=== PATIENT | female | born 1940 | race Caucasian/White ===

== ENCOUNTER → 2017-03-17 10:17 | Outpatient (CLI) | payer MEDICARE, SELFPAY ==
[2017-03-17 10:21] VITALS: BP 171/70; PULSE 60; RESP 16; TEMP 36.6; O2SAT 99; BMI 29.1
[2017-03-17 10:35] LABS: Hematocrit 30.5 % (37-47); Hemoglobin 9.5 g/dl (12.0-15.0)
== END ==
PROVIDERS: Family Provider Family Medicine; PCP Family Medicine; Visit Provider Internal Medicine Nephrology
DX: N18.3 Chronic kidney disease, stage 3 (moderate) (principal); D63.1 Anemia in chronic kidney disease
CPT/HCPCS: 36415; 85014; 85018; 96372; J0885

== ENCOUNTER → 2017-03-31 10:28 | Outpatient (CLI) | payer MEDICARE, SELFPAY ==
[2017-03-31 10:46] VITALS: BP 105/62; PULSE 59; RESP 18; TEMP 36.2; O2SAT 97; BMI 28.3
[2017-03-31 10:58] LABS: Hematocrit 30.1 % (37-47); Hemoglobin 9.6 g/dl (12.0-15.0)
[2017-03-31 11:09] LABS: Albumin, Serum 3.4 g/dL (3.2-5.0); BUN 43 mg/dL (7-18); BUN/Creat Ratio 27.2 RATIO (10-20); Calcium,Total 10.2 mg/dL (8.5-10.1); Chloride 102 mmol/L (98-107); Creatinine, Serum 1.58 mg/dL (0.55-1.02); EST Glomerular Filtration Rate 34 mL/min (>60); Est Glom Filt Rate - Afr Amer 41 mL/min (>60); Estimated Creatinine Clearance 27.26 ml/min; Glucose 97 mg/dL (74-106); Phosphorus 3.2 mg/dL (2.5-4.9); Potassium 4.4 mmol/L (3.5-5.1); Sodium Level 136 mmol/L (136-145)
== END ==
PROVIDERS: Family Provider Family Medicine; PCP Family Medicine; Visit Provider Internal Medicine Nephrology
DX: N18.3 Chronic kidney disease, stage 3 (moderate) (principal); D63.1 Anemia in chronic kidney disease
CPT/HCPCS: 80069; 85014; 85018; 96372; J0885

== ENCOUNTER → 2017-04-14 10:20 | Outpatient (CLI) | payer MEDICARE, SELFPAY ==
[2017-04-14 10:28] VITALS: BP 156/68; PULSE 56; RESP 16; TEMP 37.1; O2SAT 100; BMI 28.2
[2017-04-14 10:57] LABS: Hematocrit 30.1 % (37-47); Hemoglobin 9.4 g/dl (12.0-15.0)
== END ==
PROVIDERS: Family Provider Family Medicine; PCP Family Medicine; Visit Provider Internal Medicine Nephrology
DX: N18.3 Chronic kidney disease, stage 3 (moderate) (principal); D63.1 Anemia in chronic kidney disease
CPT/HCPCS: 36415; 85014; 85018; 96372; J0885

== ENCOUNTER → 2017-04-28 10:20 | Outpatient (CLI) | payer MEDICARE, SELFPAY ==
[2017-04-28 10:38] VITALS: BP 138/74; PULSE 55; RESP 18; TEMP 36.4; O2SAT 99; BMI 28.3
[2017-04-28 10:55] LABS: Hematocrit 31.5 % (37-47); Hemoglobin 9.8 g/dl (12.0-15.0)
[2017-04-28 11:07] LABS: Albumin, Serum 3.5 g/dL (3.2-5.0); BUN 38 mg/dL (7-18); BUN/Creat Ratio 23.6 RATIO (10-20); Calcium,Total 9.8 mg/dL (8.5-10.1); Chloride 106 mmol/L (98-107); Creatinine, Serum 1.61 mg/dL (0.55-1.02); EST Glomerular Filtration Rate 33 mL/min (>60); Est Glom Filt Rate - Afr Amer 40 mL/min (>60); Estimated Creatinine Clearance 26.75 ml/min; Ferritin 240 ng/mL (8-252); Glucose 91 mg/dL (74-106); Iron 51 ug/dL (50-170); Iron Binding Capacity,Total 214 ug/dL (250-450); PERCENT IRON SATURATION 23.8 % (15.0-55.0); Phosphorus 2.8 mg/dL (2.5-4.9); Potassium 4.2 mmol/L (3.5-5.1); Sodium Level 140 mmol/L (136-145)
== END ==
PROVIDERS: Family Provider Family Medicine; PCP Family Medicine; Visit Provider Internal Medicine Nephrology
DX: N18.3 Chronic kidney disease, stage 3 (moderate) (principal); D63.1 Anemia in chronic kidney disease
CPT/HCPCS: 36415; 80069; 82728; 83540; 83550; 85014; 85018; 96372; J0885

== ENCOUNTER → 2017-05-12 10:27 | Outpatient (CLI) | payer MEDICARE, SELFPAY ==
[2017-05-12 10:36] VITALS: BP 145/74; PULSE 52; RESP 16; TEMP 36.1; BMI 28.7
[2017-05-12 10:54] LABS: Hematocrit 31.1 % (37-47); Hemoglobin 9.7 g/dl (12.0-15.0)
== END ==
PROVIDERS: Family Provider Family Medicine; PCP Family Medicine; Visit Provider Internal Medicine Nephrology
DX: N18.3 Chronic kidney disease, stage 3 (moderate) (principal); D63.1 Anemia in chronic kidney disease
CPT/HCPCS: 36415; 85014; 85018; 96372; J0885

== ENCOUNTER → 2017-05-26 10:24 | Outpatient (CLI) | payer MEDICARE, SELFPAY ==
[2017-05-26 10:36] VITALS: BP 136/75; PULSE 56; RESP 16; TEMP 36.6; O2SAT 100; BMI 29.6
[2017-05-26 10:40] LABS: Hematocrit 32.1 % (37-47)
[2017-05-26 10:53] LABS: Albumin, Serum 3.5 g/dL (3.2-5.0); BUN 38 mg/dL (7-18); BUN/Creat Ratio 22.1 RATIO (10-20); Calcium,Total 9.7 mg/dL (8.5-10.1); Chloride 108 mmol/L (98-107); Creatinine, Serum 1.72 mg/dL (0.55-1.02); EST Glomerular Filtration Rate 31 mL/min (>60); Est Glom Filt Rate - Afr Amer 37 mL/min (>60); Estimated Creatinine Clearance 25.04 ml/min; Glucose 80 mg/dL (74-106); Phosphorus 2.3 mg/dL (2.5-4.9); Potassium 3.8 mmol/L (3.5-5.1); Sodium Level 142 mmol/L (136-145)
== END ==
PROVIDERS: Family Provider Family Medicine; PCP Family Medicine; Visit Provider Internal Medicine Nephrology
DX: N18.3 Chronic kidney disease, stage 3 (moderate) (principal); D63.1 Anemia in chronic kidney disease
CPT/HCPCS: 36415; 80069; 85014; 85018; 96372; J0885

== ENCOUNTER → 2017-06-09 10:27 | Outpatient (CLI) | payer MEDICARE, SELFPAY ==
[2017-06-09 10:52] LABS: Hematocrit 30.9 % (37-47); Hemoglobin 9.9 g/dl (12.0-15.0)
[2017-06-09 11:00] VITALS: BP 144/63; PULSE 44; RESP 18; TEMP 36.4; BMI 28.7
== END ==
PROVIDERS: Family Provider Family Medicine; PCP Family Medicine; Visit Provider Internal Medicine Nephrology
DX: N18.3 Chronic kidney disease, stage 3 (moderate) (principal); D63.1 Anemia in chronic kidney disease
CPT/HCPCS: 85014; 85018; 96372; J0885

== ENCOUNTER → 2017-06-23 10:33 | Outpatient (CLI) | payer MEDICARE, SELFPAY ==
[2017-06-23 10:44] VITALS: BP 143/71; PULSE 52; RESP 16; TEMP 36.4; O2SAT 97; BMI 27.9
[2017-06-23 10:59] LABS: Hematocrit 31.4 % (37-47); Hemoglobin 9.9 g/dl (12.0-15.0)
[2017-06-23 11:08] LABS: Albumin, Serum 3.5 g/dL (3.2-5.0); BUN 43 mg/dL (7-18); BUN/Creat Ratio 28.1 RATIO (10-20); Calcium,Total 10.1 mg/dL (8.5-10.1); Chloride 105 mmol/L (98-107); Creatinine, Serum 1.53 mg/dL (0.55-1.02); EST Glomerular Filtration Rate 35 mL/min (>60); Est Glom Filt Rate - Afr Amer 42 mL/min (>60); Estimated Creatinine Clearance 28.15 ml/min; Glucose 99 mg/dL (74-106); Phosphorus 3.1 mg/dL (2.5-4.9); Potassium 3.8 mmol/L (3.5-5.1); Sodium Level 139 mmol/L (136-145)
== END ==
PROVIDERS: Family Provider Family Medicine; PCP Family Medicine; Visit Provider Internal Medicine Nephrology
DX: N18.3 Chronic kidney disease, stage 3 (moderate) (principal); D63.1 Anemia in chronic kidney disease
CPT/HCPCS: 36415; 80069; 85014; 85018; 96372; J0885

== ENCOUNTER → 2017-07-07 10:31 | Outpatient (CLI) | payer MEDICARE, SELFPAY ==
[2017-07-07 10:45] LABS: Hematocrit 31.9 % (37-47); Hemoglobin 10.1 g/dl (12.0-15.0)
== END ==
PROVIDERS: Family Provider Family Medicine; PCP Family Medicine; Visit Provider Internal Medicine Nephrology
DX: N18.3 Chronic kidney disease, stage 3 (moderate) (principal); D63.1 Anemia in chronic kidney disease
CPT/HCPCS: 36415; 85014; 85018

== ENCOUNTER → 2017-07-21 10:30 | Outpatient (CLI) | payer MEDICARE, SELFPAY ==
--- NOTE | 2017-07-21 10:30 | DT_ITS ---
This patient was seen during an EMR downtime July 19, 2017 - July 26, 2017. This patient may have a combination of paper and electronic documentation or all paper documentation. All documentation is viewable within the e-chart portion of [employer] for each patient visit.
[2017-07-27 06:50] LABS: Hemoglobin 9.9 g/dl (12.0-15.0)
[2017-07-28 10:28] LABS: BUN 49 mg/dL (7-18); BUN/Creat Ratio 31.2 RATIO (10-20); Creatinine, Serum 1.57 mg/dL (0.55-1.02); EST Glomerular Filtration Rate 34 mL/min (>60); Est Glom Filt Rate - Afr Amer 41 mL/min (>60); Glucose 71 mg/dL (74-106)
[2017-07-28 10:30] LABS: Albumin, Serum 3.5 g/dL (3.2-5.0); Calcium,Total 10.2 mg/dL (8.5-10.1); Chloride 106 mmol/L (98-107); Phosphorus 3.5 mg/dL (2.5-4.9); Potassium 4.5 mmol/L (3.5-5.1); Sodium Level 141 mmol/L (136-145)
[2017-07-28 10:31] LABS: Ferritin 246 ng/mL (8-252); Iron Binding Capacity,Total 209 ug/dL (250-450)
== END ==
PROVIDERS: Family Provider Family Medicine; PCP Family Medicine; Visit Provider Internal Medicine Nephrology
DX: N18.3 Chronic kidney disease, stage 3 (moderate) (principal); D63.1 Anemia in chronic kidney disease
CPT/HCPCS: 36415; 80069; 82728; 83550; 85014; 85018; 96372; J0885

== ENCOUNTER → 2017-08-04 10:33 | Outpatient (CLI) | payer MEDICARE, SELFPAY ==
[2017-08-04 10:48] LABS: Hematocrit 30.4 % (37-47); Hemoglobin 9.6 g/dl (12.0-15.0)
[2017-08-04 11:05] VITALS: BP 126/61; PULSE 53; RESP 18; TEMP 36.6; O2SAT 100; BMI 27.7
== END ==
PROVIDERS: Family Provider Family Medicine; PCP Family Medicine; Visit Provider Internal Medicine Nephrology
DX: N18.3 Chronic kidney disease, stage 3 (moderate) (principal); D63.1 Anemia in chronic kidney disease
CPT/HCPCS: 36415; 85014; 85018; 96372; J0885

== ENCOUNTER → 2017-08-19 10:28 | Outpatient (CLI) | payer MEDICARE, SELFPAY ==
[2017-08-19 10:58] LABS: Hematocrit 29.9 % (37-47); Hemoglobin 9.6 g/dl (12.0-15.0)
[2017-08-19 11:12] LABS: Albumin, Serum 3.4 g/dL (3.2-5.0); BUN 58 mg/dL (7-18); BUN/Creat Ratio 33.1 RATIO (10-20); Calcium,Total 9.9 mg/dL (8.5-10.1); Chloride 107 mmol/L (98-107); Creatinine, Serum 1.75 mg/dL (0.55-1.02); EST Glomerular Filtration Rate 30 mL/min (>60); Est Glom Filt Rate - Afr Amer 36 mL/min (>60); Glucose 81 mg/dL (74-106); Phosphorus 3.2 mg/dL (2.5-4.9); Sodium Level 140 mmol/L (136-145)
[2017-08-19 11:13] VITALS: BP 113/53; PULSE 47; RESP 16; TEMP 36.2; O2SAT 99; BMI 28.6
== END ==
PROVIDERS: Family Provider Family Medicine; PCP Family Medicine; Visit Provider Internal Medicine Nephrology
DX: N18.3 Chronic kidney disease, stage 3 (moderate) (principal); D63.1 Anemia in chronic kidney disease
CPT/HCPCS: 36415; 80069; 85014; 85018; 96372; J0885

== ENCOUNTER → 2017-09-01 10:30 | Outpatient (CLI) | payer MEDICARE, SELFPAY ==
[2017-09-01 11:08] LABS: Hematocrit 30.6 % (37-47); Hemoglobin 9.9 g/dl (12.0-15.0)
== END ==
PROVIDERS: Family Provider Family Medicine; PCP Family Medicine; Visit Provider Internal Medicine Nephrology
DX: N18.3 Chronic kidney disease, stage 3 (moderate) (principal); D63.1 Anemia in chronic kidney disease
CPT/HCPCS: 85014; 85018; 96372; J0885

== ENCOUNTER → 2017-09-15 10:33 | Outpatient (CLI) | payer MEDICARE, SELFPAY ==
[2017-09-15 10:55] LABS: Hematocrit 31.3 % (37-47); Hemoglobin 9.8 g/dl (12.0-15.0)
[2017-09-15 11:10] LABS: Albumin, Serum 3.3 g/dL (3.2-5.0); BUN 44 mg/dL (7-18); BUN/Creat Ratio 24.6 RATIO (10-20); Chloride 104 mmol/L (98-107); Creatinine, Serum 1.79 mg/dL (0.55-1.02); EST Glomerular Filtration Rate 29 mL/min (>60); Est Glom Filt Rate - Afr Amer 35 mL/min (>60); Glucose 91 mg/dL (74-106); Phosphorus 3.2 mg/dL (2.5-4.9); Potassium 4.3 mmol/L (3.5-5.1); Sodium Level 140 mmol/L (136-145)
[2017-09-15 11:20] VITALS: BP 140/60; PULSE 52; RESP 16; TEMP 36.4; O2SAT 98; BMI 28.6
== END ==
PROVIDERS: Family Provider Family Medicine; PCP Family Medicine; Visit Provider Internal Medicine Nephrology
DX: N18.3 Chronic kidney disease, stage 3 (moderate) (principal); D63.1 Anemia in chronic kidney disease
CPT/HCPCS: 36415; 80069; 85014; 85018; 96372; J0885

== ENCOUNTER → 2017-09-29 10:26 | Outpatient (CLI) | payer MEDICARE, SELFPAY ==
[2017-09-29 10:48] LABS: Hematocrit 30.3 % (37-47); Hemoglobin 9.7 g/dl (12.0-15.0)
[2017-09-29 10:52] VITALS: BP 143/69; PULSE 50; RESP 18; O2SAT 98; BMI 28.6
== END ==
PROVIDERS: Family Provider Family Medicine; PCP Family Medicine; Visit Provider Internal Medicine Nephrology
DX: N18.3 Chronic kidney disease, stage 3 (moderate) (principal); D63.1 Anemia in chronic kidney disease
CPT/HCPCS: 36415; 85014; 85018; 96372; J0885

== ENCOUNTER → 2017-10-13 10:32 | Outpatient (CLI) | payer MEDICARE, SELFPAY ==
[2017-10-13 11:00] LABS: Hematocrit 32.1 % (37-47)
[2017-10-13 11:13] LABS: Albumin, Serum 3.3 g/dL (3.2-5.0); BUN 57 mg/dL (7-18); BUN/Creat Ratio 31.5 RATIO (10-20); Chloride 109 mmol/L (98-107); Creatinine, Serum 1.81 mg/dL (0.55-1.02); EST Glomerular Filtration Rate 29 mL/min (>60); Est Glom Filt Rate - Afr Amer 35 mL/min (>60); Glucose 81 mg/dL (74-106); Phosphorus 3.5 mg/dL (2.5-4.9); Potassium 4.2 mmol/L (3.5-5.1); Sodium Level 142 mmol/L (136-145)
[2017-10-13 11:55] VITALS: BP 141/58; PULSE 50; RESP 16; TEMP 36.4; O2SAT 99
== END ==
PROVIDERS: Family Provider Family Medicine; PCP Family Medicine; Visit Provider Internal Medicine Nephrology
DX: N18.3 Chronic kidney disease, stage 3 (moderate) (principal); D63.1 Anemia in chronic kidney disease
CPT/HCPCS: 36415; 80069; 85014; 85018; 96372; J0885; A4216

== ENCOUNTER → 2017-10-27 10:17 | Outpatient (CLI) | payer MEDICARE, SELFPAY ==
[2017-10-27 11:06] LABS: Albumin, Serum 3.4 g/dL (3.2-5.0); BUN 55 mg/dL (7-18); BUN/Creat Ratio 33.1 RATIO (10-20); Calcium,Total 10.2 mg/dL (8.5-10.1); Chloride 106 mmol/L (98-107); Creatinine, Serum 1.66 mg/dL (0.55-1.02); EST Glomerular Filtration Rate 32 mL/min (>60); Est Glom Filt Rate - Afr Amer 39 mL/min (>60); Glucose 83 mg/dL (74-106); Phosphorus 3.6 mg/dL (2.5-4.9); Potassium 4.5 mmol/L (3.5-5.1); Sodium Level 140 mmol/L (136-145)
[2017-10-27 11:08] LABS: Hematocrit 32.7 % (37-47); Mean Corp Hgb Conc 30.6 g/gl (32-36); Mean Corpuscular Hgb 29.6 pg (27.0-32.0); Mean Corpuscular Volume 96.7 fL (81-99); Mean Platelet Vol. 10.7 fl (6.2-12.0); Platelet Count 166 K/mm3 (150-450); RBC Distribution Width CV 17.1 % (11.6-14.6); RBC Distribution Width SD 60.5 fl (35.1-43.9); Red Blood Count 3.38 M/mm3 (4.2-5.4); White Blood Count 5.2 K/mm3 (4.4-11.0)
[2017-10-27 11:09] LABS: Scan Indicated on CBC? Y/N NO
[2017-10-27 11:55] VITALS: BP 170/67; PULSE 52; RESP 16; TEMP 36.1; O2SAT 100
[2017-10-27 12:29] LABS: Protein, Urine (Random) < 6.0 mg/dL (<11.9)
[2017-10-27 14:50] LABS: Vitamin D,25 Hydroxy 28.4 ng/mL (29.95-100.01)
== END ==
PROVIDERS: Family Provider Family Medicine; PCP Family Medicine; Visit Provider Internal Medicine Nephrology
DX: N18.3 Chronic kidney disease, stage 3 (moderate) (principal); D63.1 Anemia in chronic kidney disease
CPT/HCPCS: 36415; 80069; 82306; 82570; 84156; 85027; 96372; J0885

== ENCOUNTER → 2017-11-10 10:28 | Outpatient (CLI) | payer MEDICARE, SELFPAY ==
[2017-11-10 10:44] LABS: Hematocrit 31.2 % (37-47); Hemoglobin 9.8 g/dl (12.0-15.0)
[2017-11-10 11:00] LABS: Albumin, Serum 3.3 g/dL (3.2-5.0); BUN 41 mg/dL (7-18); BUN/Creat Ratio 27.2 RATIO (10-20); Calcium,Total 10.3 mg/dL (8.5-10.1); Chloride 102 mmol/L (98-107); Creatinine, Serum 1.51 mg/dL (0.55-1.02); EST Glomerular Filtration Rate 36 mL/min (>60); Est Glom Filt Rate - Afr Amer 43 mL/min (>60); Ferritin 252 ng/mL (8-252); Glucose 114 mg/dL (74-106); Iron 24 ug/dL (50-170); Iron Binding Capacity,Total 171 ug/dL (250-450); Phosphorus 3.2 mg/dL (2.5-4.9); Sodium Level 138 mmol/L (136-145)
[2017-11-10 11:03] VITALS: BP 125/56; PULSE 58; RESP 18; TEMP 36.7; O2SAT 100; BMI 28.3
== END ==
PROVIDERS: Family Provider Family Medicine; PCP Family Medicine; Visit Provider Internal Medicine Nephrology
DX: N18.3 Chronic kidney disease, stage 3 (moderate) (principal); D63.1 Anemia in chronic kidney disease
CPT/HCPCS: 36415; 80069; 82728; 83540; 83550; 85014; 85018; 96372; J0885

== ENCOUNTER → 2017-11-24 09:59 | Outpatient (CLI) | payer MEDICARE, SELFPAY ==
[2017-11-24 10:35] LABS: Hematocrit 31.7 % (37-47); Hemoglobin 10.1 g/dl (12.0-15.0)
== END ==
PROVIDERS: Family Provider Family Medicine; PCP Family Medicine; Referring Provider Internal Medicine Nephrology; Visit Provider Internal Medicine Nephrology
DX: N18.3 Chronic kidney disease, stage 3 (moderate) (principal); D63.1 Anemia in chronic kidney disease
CPT/HCPCS: 36415; 85014; 85018; J0885

== ENCOUNTER → 2017-12-08 10:30 | Outpatient (CLI) | payer MEDICARE, SELFPAY ==
[2017-12-08 10:37] VITALS: BP 150/71; PULSE 52; RESP 18; TEMP 35.9; O2SAT 100; BMI 28.3
[2017-12-08 10:54] LABS: Hematocrit 30.4 % (37-47); Hemoglobin 9.6 g/dl (12.0-15.0)
[2017-12-08 11:08] LABS: Albumin, Serum 3.2 g/dL (3.2-5.0); BUN 38 mg/dL (7-18); BUN/Creat Ratio 25.7 RATIO (10-20); Calcium,Total 9.8 mg/dL (8.5-10.1); Chloride 106 mmol/L (98-107); Creatinine, Serum 1.48 mg/dL (0.55-1.02); EST Glomerular Filtration Rate 36 mL/min (>60); Est Glom Filt Rate - Afr Amer 44 mL/min (>60); Glucose 83 mg/dL (74-106); Phosphorus 3.3 mg/dL (2.5-4.9); Potassium 3.8 mmol/L (3.5-5.1); Sodium Level 139 mmol/L (136-145)
== END ==
PROVIDERS: Family Provider Family Medicine; PCP Family Medicine; Referring Provider Internal Medicine Nephrology; Visit Provider Internal Medicine Nephrology
DX: N18.3 Chronic kidney disease, stage 3 (moderate) (principal); D63.1 Anemia in chronic kidney disease
CPT/HCPCS: 36415; 80069; 85014; 85018; 96372; J0885

== ENCOUNTER → 2017-12-22 10:22 | Outpatient (CLI) | payer MEDICARE, SELFPAY ==
[2017-12-22 10:43] LABS: Hematocrit 30.9 % (37-47); Hemoglobin 9.7 g/dl (12.0-15.0)
[2017-12-22 11:29] VITALS: BP 159/68; PULSE 48; RESP 16; O2SAT 98
== END ==
PROVIDERS: Family Provider Family Medicine; PCP Family Medicine; Referring Provider Internal Medicine Nephrology; Visit Provider Internal Medicine Nephrology
DX: N18.3 Chronic kidney disease, stage 3 (moderate) (principal); D63.1 Anemia in chronic kidney disease
CPT/HCPCS: 36415; 85014; 85018; 96372; J0885

== ENCOUNTER → 2018-01-05 10:25 | Outpatient (CLI) | payer MEDICARE, SELFPAY ==
[2018-01-05 10:54] LABS: Hematocrit 31.6 % (37-47); Hemoglobin 9.8 g/dl (12.0-15.0)
[2018-01-05 11:07] VITALS: BP 162/78; PULSE 45; RESP 18; TEMP 36.1; O2SAT 99
[2018-01-05 11:07] LABS: Albumin, Serum 3.3 g/dL (3.2-5.0); BUN 33 mg/dL (7-18); BUN/Creat Ratio 22.8 RATIO (10-20); Calcium,Total 10.3 mg/dL (8.5-10.1); Chloride 105 mmol/L (98-107); Creatinine, Serum 1.45 mg/dL (0.55-1.02); EST Glomerular Filtration Rate 37 mL/min (>60); Est Glom Filt Rate - Afr Amer 45 mL/min (>60); Glucose 85 mg/dL (74-106); Phosphorus 3.2 mg/dL (2.5-4.9); Potassium 4.1 mmol/L (3.5-5.1); Sodium Level 140 mmol/L (136-145)
== END ==
PROVIDERS: Family Provider Family Medicine; PCP Family Medicine; Referring Provider Internal Medicine Nephrology; Visit Provider Internal Medicine Nephrology
DX: N18.3 Chronic kidney disease, stage 3 (moderate) (principal); D63.1 Anemia in chronic kidney disease
CPT/HCPCS: 36415; 80069; 85014; 85018; 96372; J0885

== ENCOUNTER → 2018-01-19 10:16 | Outpatient (CLI) | payer MEDICARE, SELFPAY ==
[2018-01-19 10:39] LABS: Hematocrit 30.6 % (37-47); Hemoglobin 9.6 g/dl (12.0-15.0)
[2018-01-19 10:57] LABS: Ferritin 251 ng/mL (8-252); Iron 53 ug/dL (50-170); Iron Binding Capacity,Total 195 ug/dL (250-450); PERCENT IRON SATURATION 27.2 % (15.0-55.0)
[2018-01-19 11:16] VITALS: BP 137/69; PULSE 52; RESP 16; TEMP 36.7
== END ==
PROVIDERS: Family Provider Family Medicine; PCP Family Medicine; Referring Provider Internal Medicine Nephrology; Visit Provider Internal Medicine Nephrology
DX: N18.3 Chronic kidney disease, stage 3 (moderate) (principal); D63.1 Anemia in chronic kidney disease
CPT/HCPCS: 36415; 82728; 83540; 83550; 85014; 85018; 96372; J0885

== ENCOUNTER → 2018-02-02 10:25 | Outpatient (CLI) | payer MEDICARE, SELFPAY ==
[2018-02-02 10:52] LABS: Hematocrit 31.6 % (37-47); Hemoglobin 9.9 g/dl (12.0-15.0)
[2018-02-02 11:02] LABS: Albumin, Serum 3.4 g/dL (3.2-5.0); BUN 43 mg/dL (7-18); BUN/Creat Ratio 26.9 RATIO (10-20); Calcium,Total 9.9 mg/dL (8.5-10.1); Chloride 107 mmol/L (98-107); EST Glomerular Filtration Rate 33 mL/min (>60); Est Glom Filt Rate - Afr Amer 40 mL/min (>60); Glucose 102 mg/dL (74-106); Phosphorus 3.1 mg/dL (2.5-4.9); Potassium 4.4 mmol/L (3.5-5.1); Sodium Level 140 mmol/L (136-145)
[2018-02-02 11:09] VITALS: BP 127/60; PULSE 50; RESP 15; TEMP 36.8; O2SAT 100; BMI 27.4
--- OUTSIDE RECORDS SUMMARY | 2018-05-06 14:12 | XMS RPT_ITS ---
:1940 Author Organization OHIP Support Name Relationship Address Phone BRITTNEY LEDBETTERHWIYANNA Unavailable [address] + [place] [address] ANA KWAN Unavailable [address] + [place] [address] R Unavailable Unavailable Unavailable CIRT, TRISHWILL Unavailable [address] + [place] [address] ANA KWAN Unavailable [address] + [place] [address] R Unavailable Unavailable Unavailable ANA KWAN Unavailable Unavailable + ANA KWAN Unavailable [address] + [place] [address] ANA KWAN Unavailable [address] + [place] [address] MARIAHT, TRISHWILL Unavailable [address] + [place] [address] ANA KWAN Unavailable [address] + [place] [address] R Unavailable Unavailable Unavailable ANA KWAN Unavailable Unavailable + CIRT, TRISHWILL Unavailable [address] + [place] [address] ANA KWAN Unavailable [address] + [place] [address] R Unavailable Unavailable Unavailable CIRT, TRISHWILL Unavailable [address] [address] + [place] [address] ANA KWAN Unavailable [address] + [place] [address] R Unavailable Unavailable Unavailable CIRT, TRISHWILL Unavailable [address] + [place] [address] ANA KWAN Unavailable [address] + [place] [address] R Unavailable Unavailable Unavailable ANA KWAN Unavailable Unavailable + CIRT, BRITTNEYHWILL Unavailable [address] + [place] [address] ANA KWAN Unavailable [address] + [place] [address] R Unavailable Unavailable Unavailable CIRT, TRISHWIYANNA Unavailable [address] + [place] [address] ANA KWAN Unavailable [address] + [place] [address] R Unavailable Unavailable Unavailable CIRT, BRITTNEYHWIYANNA Unavailable [address] + [place] [address] ANA KWAN Unavailable [address] + [place] [address] R Unavailable Unavailable Unavailable CIRT, BRITTNEYHWIYANNA Unavailable [address] [facility] [facility] + [place] [address] ANA KWAN Unavailable [address] + [place] [address] R Unavailable Unavailable Unavailable CIRT, TRISHWIYANNA Unavailable [address] + [place] [address] ANA KWAN Unavailable [address] + [place] [address] R Unavailable Unavailable Unavailable CIRT, TRISHWILL Unavailable [address] [facility] + [place] [address] ANA KWAN Unavailable [address] + [place] [address] R Unavailable Unavailable Unavailable CIRT, TRISHWILL Unavailable [address] + [place] [address] ANA KWAN Unavailable [address] + [place] [address] R Unavailable Unavailable Unavailable CIRT, TRISHWILL Unavailable [address] + [place] [address] ANA KWAN Unavailable [address] + [place] [address] R Unavailable Unavailable Unavailable CIRT, TRISHWILL Unavailable [address] + [place] [address] ANA KWAN Unavailable [address] + [place] [address] R Unavailable Unavailable Unavailable CIRT, BRITTNEYHWILL Unavailable [address] + [place] [address] ANA KWAN Unavailable [address] + [place] [address] R Unavailable Unavailable Unavailable CIRT, BRITTNEYHWILL Unavailable [address] + [place] [address] ANA KAWN Unavailable [address] + [place] [address] R Unavailable Unavailable Unavailable CIRT, BRITTNEYHWILL Unavailable [address] + [place] [address] ANA KWAN Unavailable [address] + [place] [address] R Unavailable Unavailable Unavailable CIRT, LETITIAWIYANNA Unavailable [address] + [place] [address] ANA KWAN Unavailable [address] + [place] [address] R Unavailable Unavailable Unavailable ANA KWAN Unavailable Unavailable + CIRT, PATTI Unavailable [address] + [place] [address] ANA KWAN Unavailable [address] + [place] [address] R Unavailable Unavailable Unavailable CIRT, BRITTNEYHWILL Unavailable [address] + [place] [address] ANA KWAN Unavailable [address] + [place] [address] R Unavailable Unavailable Unavailable CIRT, TRISHWILL Unavailable [address] + [place] [address] ANA KWAN Unavailable [address] + [place] [address] R Unavailable Unavailable Unavailable CIRT, TRISHWILL Unavailable [address] + [place] [address] ANA KWAN Unavailable [address] + [place] [address] R Unavailable Unavailable Unavailable ANA KWAN Unavailable [address] + [place] [address] ANA KWAN Unavailable [address] + [place] [address] ANA KWAN Unavailable [address] + [place] [address] REJIANA COLLAZO Unavailable [address] + [place] [address] CIRT, TRISHWILL Unavailable [address] + [place] [address] ANA KWAN Unavailable [address] + [place] [address] R Unavailable Unavailable Unavailable CIRT, BRITTNEYHWILL Unavailable [address] + [place] [address] ANA KWAN Unavailable [address] + [place] [address] R Unavailable Unavailable Unavailable ANA KWAN Unavailable [address] + [place] [address] ANA KWAN Unavailable [address] + [place] [address] MARIAHT, TRISHWILL Unavailable [address] + [place] [address] ANA KWAN Unavailable [address] + [place] [address] R Unavailable Unavailable Unavailable Care Team Providers Name Role Phone Yazmin, Jayaprakash Attending Unavailable AISHWARYA REYES Primary Care Unavailable Yazmin, Jayaprakash Attending Unavailable Yazmin, Jayaprakash Referring Unavailable ERIC, AISHWARYA Primary Care Unavailable Yazmin, Jayaprakash Attending Unavailable Yazmin, Jayaprakash Referring Unavailable AISHWARYA REYES Primary Care Unavailable Yazmin, Jayaprakash Attending Unavailable AISHWARYA REYES Referring Unavailable ERIC, AISHWARYA Primary Care Unavailable Yazmin, Jayaprakash Attending Unavailable Yazmin, Jayaprakash Referring Unavailable ERIC, AISHWARYA Primary Care Unavailable Yazmin, Jayaprakash Attending Unavailable Yazmin, Jayaprakash Referring Unavailable ERIC, AISHWARYA Primary Care Unavailable Yazmin, Jayaprakash Attending Unavailable Yazmin, Jayaprakash Referring Unavailable ERIC, AISHWARYA Primary Care Unavailable Yazmin, Jayaprakash Attending Unavailable Yazmin, Jayaprakash Referring Unavailable ERIC, AISHWARYA Primary Care Unavailable Yazmin, Jayaprakash Attending Unavailable Yazmin, Jayaprakash Referring Unavailable ERIC, AISHWARYA Primary Care Unavailable Yazmin, Jayaprakash Attending Unavailable Yazmin, Jayaprakash Referring Unavailable ERIC, AISHWARYA Primary Care Unavailable Yazmin, Jayaprakash Attending Unavailable Yazmin, Jayaprakash Referring Unavailable AISHWARYA REYES Primary Care Unavailable Yazmin, Jayaprakash Attending Unavailable Yazmin, Jayaprakash Referring Unavailable AISHWARYA REYES Primary Care Unavailable Yazmin, Jayaprakash Attending Unavailable Yazmin, Jayaprakash Referring Unavailable AISHWARYA REYES Primary Care Unavailable Yazmin, Jayaprakash Attending Unavailable Yazmin, Jayaprakash Referring Unavailable ERIC, AISHWARYA Primary Care Unavailable Yazmin, Jayaprakash Attending Unavailable Yazmin, Jayaprakash Referring Unavailable ERIC, AISHWARYA Primary Care Unavailable Yazmin, Jayaprakash Attending Unavailable Yazmin, Jayaprakash Referring Unavailable ERIC, AISHWARYA Primary Care Unavailable Yazmin, Jayaprakash Attending Unavailable Yazmin, Jayaprakash Referring Unavailable AISHWARYA REYES Primary Care Unavailable Yazmin, Jayaprakash Attending Unavailable Yazmin, Jayaprakash Referring Unavailable ERIC, AISHWARYA Primary Care Unavailable Yazmin, Jayaprakash Attending Unavailable Yazmin, Jayaprakash Referring Unavailable ERIC AISHWARYA Primary Care Unavailable Yazmin, Jayaprakash Attending Unavailable Yazmin, Jayaprakash Referring Unavailable ERIC AISHWARYA Primary Care Unavailable Yazmin, Jayaprakash Attending Unavailable Yazmin, Jayaprakash Referring Unavailable AISHWARYA REYES Primary Care Unavailable Yazmin, Jayaprakash Attending Unavailable Yazmin, Jayaprakash Referring Unavailable ERIC AISHWARYA Primary Care Unavailable Yazmin, Jayaprakash Attending Unavailable Yazmin, Jayaprakash Referring Unavailable REYES AISHWARYA Primary Care Unavailable Yazmin, Jayaprakash Attending Unavailable Yazmin, Jayaprakash Referring Unavailable AISHWARYA REYES Primary Care Unavailable Yazmin, Jayaprakash Attending Unavailable REYESAISHWARYA Primary Care Unavailable Yazmin, Jayaprakash Attending Unavailable Yazmin, Jayaprakash Referring Unavailable ERIC AISHWARYA Primary Care Unavailable AISHWARYA REYES MD Attending Unavailable AISHWARYA REYES MD Primary Care Unavailable YAZMIN MIN, DR. DARLENE Zavala Attending Unavailable AISHWARYA REYES MD Primary Care Unavailable AISHWARYA REYES MD Attending Unavailable AISHWARYA REYES MD Primary Care Unavailable AISHWARYA REYES MD Attending Unavailable AISHWARYA REYES MD Primary Care Unavailable Hank Maloney Attending Unavailable Hank Maloney Attending Unavailable Darci Clark Attending Unavailable Aishwarya Reyes Primary Care Unavailable Darci Clark Attending Unavailable Aishwarya Reyes Primary Care Unavailable Darci Clark Admitting Unavailable PROBLEMS PROBLEMS DATE TYPE CONDITION / ATTENDING STATUS SOURCE CODE 03/02/2018 Unknown D63.1 - Anemia Yazmin, Active Nellie in chronic [facility] kidney disease Hospital / D63.1(ICD-10) Repository 09/17/2017 Unknown N18.3 - Chronic Yazmin, Active Nellie kidney disease, [facility] stage 3 [facility] (moderate) / Repository N18.3(ICD-10) 06/21/2017 Admitting Unknown / Hank Maloney Active [facility] Medical diagnosis UNK(Unknown) Center [place] Repository PROCEDURES PROCEDURES No Procedure Records FoundRESULTS RESULTS HH, HEMOGLOBIN AND Collected: 03/02/2018 Status: F Source: [facility] 11[facility]08 [facility]POSIT[facility] TYPE CODE TESTS RESULT OUT OF RANGE REFERENCE UNITS LAB L100.1300 12.0-15.0 g/dl Low HGB 9.1 LAB L100.1400 37-47 % Low HCT 29.5 Performed By: #### L100.0600 #### [facility] [address] [place], [address] RENAL PROFILE Collected: 03/02/2018 Status: F Source: [facility] 11:08 AM [facility] REPOSITORY TYPE CODE TESTS RESULT OUT OF RANGE REFERENCE UNITS LAB L501.0100 74-106 mg/dL High GLU 121 Result Comment: Fasting Glucose result from 100 to 125 mg/dL suggests IMPAIRED HOMEOSTASIS per A.D.A. criteria. Please note revised GLUCOSE reference range effective 2017. LAB L501.1000 7-18 mg/dL High BUN 29 LAB L501.1100 0.55-1.02 mg/dL High CREAT,SERUM 1.45 Result Comment: The validity of the calculated GFR AND GFRAA in patients over 70 years has not been determined. Clinical correlation is essential. LAB L501.1110 >60 mL/min Low EST GFR 37 Result Comment: Non- GFR Calc LAB L501.1115 >60 mL/min Low EST GFR - AA 45 Result Comment: GFR Calc LAB L501.1300 10-20 RATIO Normal BUN/CRE 20.0 LAB L501.1800 3.2-5.0 g/dL Normal ALB 3.2 LAB L501.2200 8.5-10.1 mg/dL High CA 10.4 LAB L501.2300 2.5-4.9 mg/dL Normal PHOS 3.1 LAB L501.5300 136-145 mmol/L NA Normal 139 LAB L501.5600 3.5-5.1 mmol/L K Normal 4.1 LAB L501.5900 98-107 mmol/L CL Normal 104 LAB L501.6100 21.0-32.0 mmol/L Normal CO2 27.0 Performed By: #### L500.3600 #### [facility] [address] [place], [place], [address] HH, HEMOGLOBIN AND Collected: 02/16/2018 Status: F Source: [facility] 10:58 AM [facility] REPOSITORY TYPE CODE TESTS RESULT OUT OF RANGE REFERENCE UNITS LAB L100.1300 12.0-15.0 g/dl Low HGB 8.2 LAB L100.1400 37-47 % Low HCT 26.4 Performed By: #### L100.0600 #### [facility] [address] [place], [address] PTPN Observed: 02/11/2018 Status: UNK Source: [facility] 10:17 AM [facility] Physical Therapy Inpatient Treatment Note Medical Diagnosis: s/p left MARGA performed by Dr. Clark on 02/09/2018 Demographics: Age: 78Y Gender: Female Primary Language: Nigerien Preferred Language: Nigerien Rehabilitation Precautions/Restrictions: WBAT LLE SUBJECTIVE Patient Report: Pt/spouse amicable. She won't remember what you tell her two minutes from now. I'm always at home with her, and if not her sister is. Patient/Caregiver Goals: To go home Pain: Patient currently has pain. Patient reports a pain level of 3 out of 10. Interventions: Repositioned patient. Patient medicated. by nursing OBJECTIVE General Observation: Pt up in chair, spouse present during session. Completed extended session of transfers/gait/stair training w/ spouse education throughout, returned to sit in chair, call light nearby. Functional Activities After Today's Session: Transfers: Patient transferred sit to/from stand requiring stand by assistance. Patient used the following equipment: Arms of chair. Max cues for hand placement and WW safety. Pt/spouse educated on having pt stop and analyze her transfers vs just instructing her. Increased difficulty from lower chairs, heavy UE use, WW for support once upright. Cues for WW safety w/ transfers. Locomotion/Ambulation: Patient was stand by assist with gait/ambulation for 120 feet x2 . Patient requires the following assistive device(s): Rolling walker. Pt w/ improved WW placement and safety, some cues for safety w/ turns, no LOB. Antalgic gait, inconsistent WW advancement, cues for same. Stairs: Patient was contact guard assist of 1 person for Pt completed 5 steps up/down w/ bilateral handrails and cues for technique, CGA from spouse w/ clinician at SBA for safety. No LOB, difficulty w/ LLE SLS phase. . Patient used the following equipment: Bilateral Railing. Curb Negotiation: Not assessed. AM-PAC Basic Mobility: Turning Over in Bed: A little difficulty Sitting/Standing Chair with Arms: A little difficulty Lying on Back to Sitting on Side of Bed: A little difficulty [facility] PATIENT NAME: MAGGI KWAN [address] [facility] [address] Schultz MEDICAL REC #: [id number] [place] [address] ADMIT DATE: 02/09/18 SERVICE DATE: 02/11/18 Physical Therapy Progress Note ATTENDING PHY: Darci Clark DO Moving To/From Bed to Chair: A little help needed Walking in Hospital Room: A little help needed Climbing 3-5 Steps with Railing: A little help needed Raw Score = 18 , AM-PAC t-Scale Score = 43.63 and G-Code Modifier = CK Vital Signs: Vitals: Oxygen Saturation: 94 % Interventions: Gait Training: Pt/spouse education on discharge planning and role of PT in same. Multiple functional transfers w/ close SBA and cues. Gait w/ WW up to 120 feet and close SBA as noted. Stair training w/ spouse education/demonstration as noted. reviewed/simulated car transfers, reviewed sitting/standing HEP and recommendation for Home or OPPT for improved mobility, safety concerns for homegoing. Reinforcement w/ spouse on need for 24/7 assist at home. Pain Reassessment: No significant change in pain during session. Education: Education Provided: Precautions. Pain management. Plan of care. Functional transfers. Safety. Equipment. Gait. Home exercise/activity plan. Stair/curb/environmental barrier negotiation. Audience: Patient and significant other. Mode: Explanation. Demonstration. Printed material provided. Max cues/reinforcement for technique . Response: Verbalized understanding. Needs practice. Needs reinforcement. Poor recall from pt. ASSESSMENT Response to Visit: Good, pt demonstrating improved strength, balance and safety this date. Pt continues to require near constant cuing and supervision w/ all mobility tasks, spouse reports is able to assist (and has been assisting) 24/7 at home. Recommending Home w/ 24/7 family assist and Home PT at discharge. Activity/Participation Problem List and Goals: No updates at this time. Progress Toward Goals: TREATMENT GOAL REVIEW: 1. Complete 80 feet supv ww - Not Met: ongoing 2. Complete transfers supv - Not Met Ongoing 3. Complete verbalization of HEP indep - Not Met Ongoing 4. complete 3 steps with bilat rail and SBA - Not Met: Ongoing Time frame to achieve treatment goal(s): 2 weeks PLAN [facility] PATIENT NAME: MAGGI KWAN [address] [facility] [address] Schultz MEDICAL REC #: [id number] [place] [address] ADMIT DATE: 02/09/18 SERVICE DATE: 02/11/18 Physical Therapy Progress Note ATTENDING PHY: Darci Clark DO Treatment Frequency, Duration and Interventions: Physical Therapy is recommended for BID for three days Physical Therapy treatment is to include: Gait training, transfer training, balance, functional tasks, HEP, thera act, thera exercise, steps, education on home going safety/recommendations, educated on fall risk, education on mobility benefits, educate on ice management, educate on car transfer Recommended Physical Therapy Follow Up: Upon acute care discharge, the following is currently recommended: Home health care Physical Therapy. Recommended Equipment: Rolling walker. Recommended Consults: Development of Plan of Care: There was no change to plan of care today. If there are any questions regarding this service, please contact the Acute Therapy Department at extension [phone] Communication to Nursing: No updates at this time. Location of Patient at End of Therapy Session: In chair, call light within reach Services: Total Billed: 45 minutes (Timed: 45, Untimed: 0) 45.00 Timed: [43733] GAIT TRAIN EA 15 MIN 0.00 Untimed: [] PT Treatment- General ORDER Signed by: Josh Beltre, 02/11/2018 12:54:06 - CoSigned By: LAURA GARNER, PT 02/11/2018 12:57:39 PM [facility] PATIENT NAME: MAGGI KWAN [facility] [address] Schultz MEDICAL REC #: [id number] [place] [address] ADMIT DATE: 02/09/18 SERVICE DATE: 02/11/18 Physical Therapy Progress Note ATTENDING PHY: Darci Clark DO OTPN Observed: 02/11/2018 Status: UNK Source: [facility] 9:58 AM [facility] Occupational Therapy Inpatient Treatment Note Medical Diagnosis: s/p left MARGA performed by Dr. Clark on 02/09/2018 OCCUPATIONAL PROFILE AND HISTORY Demographics: Age: 78Y Gender: Female Primary Language: Nigerien Preferred Language: Nigerien Referring Service/Team: Orthopedics Rehabilitation Precautions/Restrictions: WBAT LLE Patient Report: I am confused Patient/Caregiver Goals: To go home Pain: Patient currently without complaints of pain. OBJECTIVE / OCCUPATIONAL PERFORMANCE General Observation: Pt in chair, keliban present. Agreeable to ADL Activities of Daily Living: Current Status Previous Status ADLs Feeding - Independent Grooming - Supervision Bathing-UE Supervision Supervision Bathing-LE Minimal assistance Minimal assistance Dressing-UE Supervision Supervision Dressing-LE Moderate assistance Moderate assistance Toileting - Minimal assistance AM-PAC Daily Activities: Putting On/Taking Off Lower Body Clothing: A lot of help needed Bathing:: A little help needed Toileting: A little help needed Putting On/Taking Off Upper Body Clothing: A little help needed Grooming: A little help needed Eating a Meal: No help needed Raw Score = 18 , AM-PAC t-Scale Score = 38.66and G-Code Modifier = CK Functional Mobility: Bed Mobility: Not assessed. Transfers: Patient transferred sit to/from stand requiring minimal assistance of 1 person. Patient used the following equipment: Arms of chair. Cues for proper techniques with fair-poor carryover. [facility] PATIENT NAME: MAGGI KWAN [address] [facility] [address] Schultz MEDICAL REC #: [id number] [place] [address] ADMIT DATE: 02/09/18 SERVICE DATE: 02/11/18 Occupational Therapy Progress Note ATTENDING PHY: Darci Clark DO Locomotion/Gait/Ambulation: Patient was minimal assist with gait/ambulation of 1 person for 5 feet . Patient requires the following assistive device(s): Rolling walker. Normal Interventions: Self Care/Home Management: UB/LB bathing/dressing, sitting balance/tolerance, standing balance/tolerance, functional mobility/transfers. Pain Reassessment: No significant change in pain during session. Education: Education Provided: Plan of care. Activities of daily living. Functional transfers. Audience: Patient and significant other. Mode: Demonstration. Explanation. Response: Needs practice. Needs reinforcement. ASSESSMENT Response to Visit: Pt tolerated sesison fairly. present and very involved in session, stated he will be able to help upon d/c. Pt seems to be confused this date and asked therapist for step by step commands when performing ADLs. Pt requires cues for proper techniques whem standing, with fair-poor carryover. Recommend home with 24 hr supervision. Will continue to work on self care next session. Activity/Participation Problem List and Goals: No updates at this time. Progress Toward Goals: TREATMENT GOAL REVIEW: 1. Pt supv self care tasks w/good use of AE/techs - Not Met: ongoing 2. Pt supv bed mobility and functional transfers w/no v/c for safety or precautions - Not Met ongoing 3. Pt supv household distance functional mobility w/safe use of ww - Not Met ongoing 4. Pt supv 5 mins min challenging standing balance demonstrating safe ability to right self when needed - Not Met ongoing 5. Pt recall hip precautions and demo good safety awareness during self care and mobility tasks 90% of the time w/min-->no v/c. - Not Met ongoing Time frame to achieve treatment goal(s): 2 weeks PLAN Treatment Frequency, Duration and Interventions: Occupational Therapy is recommended for 6x/week Occupational Therapy treatment is to include: Graded ADLs, AE/techs, graded therex, graded theract, pt/caregiver education, home management, cognition and saefty Recommended Occupational Therapy Follow Up: Upon acute care discharge, the following is currently recommended: Home exercise program. [facility] PATIENT NAME: REJIZAYMAGGI Schultz MEDICAL REC #: [id number] [place] [address] ADMIT DATE: 02/09/18 SERVICE DATE: 02/11/18 Occupational Therapy Progress Note ATTENDING PHY: Darci Clark DO Equipment Recommended: TBD Recommended Consults: None currently. Development of Plan of Care: Patient and family participated in plan of care development today. If there are any questions regarding this service, please contact the Acute Therapy Department at extension [phone] Communication to Nursing: No updates at this time. Location of Patient at End of Therapy Session: In chair, call light within reach Services: Total Billed: 25 minutes (Timed: 25, Untimed: 0) 25.00 Timed: [[id number]] ADL-HOME MANAGEMENT EA 15 MIN 0.00 Untimed: [] OT Treatment General ORDER Signed by: Liya Olson, 02/11/2018 10:03:22 - CoSigned By: CATY COX/Zac 02/11/2018 11:15:05 AM [facility] PATIENT NAME: ANIYAMAGGI HolmanW. MEDICAL REC #: [id number] [place] [address] ADMIT DATE: 02/09/18 SERVICE DATE: 02/11/18 Occupational Therapy Progress Note ATTENDING PHY: Darci Clark DO CBC Collected: 02/11/2018 Status: F Source: [facility] 5:02 AM [facility] REPOSITORY Order Comment: [place]: M TYPE CODE TESTS RESULT OUT OF RANGE REFERENCE UNITS LAB L200.83522 4.5-11.0 K/CUMM Normal WBC 8.8 LAB L200.02081 3.90-5.30 M/CU MM Low RBC 2.72 LAB L200.00858 11.5-15.5 G/DL Low HGB 8.3 LAB L200.98188 35.0-47.0 % Low HCT 26.5 LAB L200.76678 80.0-99.0 fl Normal MCV 97.4 LAB L200.84142 32.0-36.0 GM/DL Low MCHC 31.3 LAB L200.74392 11-14.5 High RDW 17.1 LAB L200.99279 9.4-12.4 Normal MPV 10.3 LAB L200.00967 150-450 K/CU MM Normal PLT 195 LAB L200.50396 Less than 1 % Normal NRBC 0.0 Performed By: #### L200.09829 #### [facility] [address] [place] [address] BMP Collected: 02/11/2018 Status: F Source: [facility] 5:02 AM [facility] REPOSITORY Order Comment: [place]: M TYPE CODE TESTS RESULT OUT OF RANGE REFERENCE UNITS LAB L500.66822 136-145 MMOL/L Normal NA 141 LAB L500.86863 3.5-5.1 MMOL/L Normal K 4.8 LAB L500.66916 98-107 MMOL/L High CL 112 LAB L500.30755 21-32 MMOL/L Normal CO2 21 LAB L500.15789 5-16 MMOL/L Normal AGAP 7 LAB L500.50389 70-100 MG/DL Normal GLU 96 Result Comment: 70-100- Normal Fasting; 100-125 Impaired Fasting; greater than 126 on more than one result- Diabetes. ADA guidelines. Results may be falsely elevated after the administration of Sulfapyridine. Results may be falsely depressed after the administration of Sulfasalazine. LAB L500.77615 7-26 MG/DL High BUN 56 LAB L500.34844 0.510-0.950 MG/DL High CREAT 2.120 Result Comment: Patients receiving either N-Acetylcysteine (NAC) or Metamizole prior to venipuncture, may have falsely depressed results. LAB L500.85661 15-24 High BUN/CREA 26 LAB L500.29624 8.5-10.1 MG/DL Normal CALCIUM TOTAL 8.7 Performed By: #### L500.58654, L500.46473 #### [facility] [address] [place] [address] GFR EST Collected: 02/11/2018 Status: F Source: [facility] 5:02 AM [facility] REPOSITORY Order Comment: [place]: TYPE CODE TESTS RESULT OUT OF RANGE REFERENCE UNITS LAB L500.66114 ML/MIN Normal IF non-AFR 23 AMER LAB L500.70510 ML/MIN Normal IF 27 AMER Performed By: #### L500.84507, L500.24996 #### [facility] [address] [place] [address] PTPN Observed: 02/10/2018 Status: UNK Source: [facility] 4:28 PM [facility] REPOSITORY Physical Therapy Inpatient Treatment Note Medical Diagnosis: s/p left MARGA performed by Dr. Clark on 02/09/2018 Demographics: Age: 78Y Gender: Female Primary Language: Nigerien Preferred Language: Nigerien Rehabilitation Precautions/Restrictions: WBAT LLE SUBJECTIVE Patient Report: Why are you keeping me Patient/Caregiver Goals: To go home Pain: Pain not assessed due to OBJECTIVE General Observation: Prior to PT entrance into room. RN and NURSE HEALTHCARE MANAGER approached PT about pt and pt agitated and upset about NURSE HEALTHCARE MANAGER and OT recommendation of SNF at this time. Upon completion pt supine in bed with dinner. Functional Activities After Today's Session: Transfers: Patient transferred sit to/from stand requiring contact guard assistance of 1 person. Patient used the following equipment: Arms of chair. CGA with verbal cues for hand placement. With transfers out of bed pt asking What am I doing, at bedside looks to the right side of the bed guiding patient to the answer. SBA with exit out bed with increase time to complete. Pt moving IV line and exiting bed with sheet around legs. Sitting EOB supv pt attempted to exit bed without ww in front of pt. Once ww in front of pt, pt initiates by pulling up on ww, verbal cues for hand placement on bed. Sit<>stand transfer with CGA. Transfer stand to sit in front of toilet, pt asking What am I doing when in front of toilet with pt reaching for grab bar and right arm of ww, verbal cues for middle of walker, CGA to complete eccentric control. Sit to stand with min assistance to initiate stand one second attempt. Transfer from sit to supine min assistance to lift bilat LE into bed. Locomotion/Ambulation: Patient was contact guard with gait/ambulation of 1 person for 20 feet x 2 . Patient requires the following assistive device(s): Rolling walker. Slow kelly, reciprocal gait pattern, narrow base of support, verbal cues for improper hand placement, wide turns, increase distance between pt and ww, forgetting ww with turning in front of bed, Stairs: Not assessed. Curb Negotiation: Not assessed. AM-[facility] Basic Mobility: [facility] PATIENT NAME: MAGGI KWAN [facility] MEDICAL REC #: [id number] [place] [address] ADMIT DATE: 02/09/18 SERVICE DATE: 02/10/18 Physical Therapy Progress Note ATTENDING URIEL: Darci Clark DO Turning Over in Bed: A little difficulty Sitting/Standing Chair with Arms: A little difficulty Lying on Back to Sitting on Side of Bed: A little difficulty Moving To/From Bed to Chair: A little help needed Walking in Hospital Room: A little help needed Climbing 3-5 Steps with Railing: A little help needed Raw Score = 18 , AM-PAC t-Scale Score = 43.63 and G-Code Modifier = CK Vital Signs: Not assessed. Interventions: Therapeutic Activities: Educated on PT role, educated on recommendation, educated on safety with homegoing, educated on PT process. bed mobility, transfers, gait Pain Reassessment: No pain at onset or during treatment, which does not warrant reassessment. Education: Learning Preference: Explanation, Demonstration Barriers to Learning: Cognitive limitations, Desire and motivation, Mobility Learning Needs: None., Bowel/bladder programs/training Education Provided: No education provided this session. ASSESSMENT Response to Visit: PT treatment session was initiated due to pt and pt upset with NURSE HEALTHCARE MANAGER and OT recommendation. requesting another PT to see pt ambulate due to requesting to be discharged this date home. Pt completed functional mobility with multiple safety concerns. Decrease safety awareness with functional mobility requiring verbal cues. Pt is at risk for falls at this time. Continue per plan of care, recommend SNF at this time pending progress. Upon exit pt and pt upset and requesting RN with AMA. Activity/Participation Problem List and Goals: No updates at this time. Progress Toward Goals: TREATMENT GOAL REVIEW: 1. Complete 80 feet supv ww - Not Met: Ongoing 2. Complete transfers supv - Not Met Ongoing 3. Complete verbalization of HEP indep - Not Met Ongoing 4. complete 3 steps with bilat rail and SBA - Not Met: Ongoing Time frame to achieve treatment goal(s): 2 weeks PLAN Treatment Frequency, Duration and Interventions: Continue Physical Therapy to achieve goals per previously established Plan of Care. Gait training, transfer training, balance, functional tasks, HEP, thera act, thera exercise, steps, [facility] PATIENT NAME: MAGGI KWAN [address] [facility] MEDICAL REC #: [id number] [place] [address] ADMIT DATE: 02/09/18 SERVICE DATE: 02/10/18 Physical Therapy Progress Note ATTENDING PHY: Darci Clark DO education on home going safety/recommendations, educated on fall risk, education on mobility benefits, educate on ice management, educate on car transfer Recommended Physical Therapy Follow Up: Upon acute care discharge, the following is currently recommended: Inpatient Physical Therapy, LESS THAN 60 minutes per day. Recommended Equipment: Rolling walker. Recommended Consults: None currently. Development of Plan of Care: Patient participated in plan of care development today. Pt agreeable If there are any questions regarding this service, please contact the Acute Therapy Department at extension [phone] Communication to Nursing: Walking: CGA Location of Patient at End of Therapy Session: In bed, without bed alarm, call light within reach Services: Total Billed: 30 minutes (Timed: 30, Untimed: 0) 30.00 Timed: [01859] THER ACTIVITIES / 15 MIN Signed by: Liliane Pike, 02/10/2018 16:59:33 [facility] PATIENT NAME: MAGGI KWAN [address] [facility] REC #: [id number] [place] [address] ADMIT DATE: 02/09/18 SERVICE DATE: 02/10/18 Physical Therapy Progress Note ATTENDING PHY: Darci Clark DO PTPN Observed: 02/10/2018 Status: UNK Source: [facility] 2:22 PM [facility] Physical Therapy Inpatient Treatment Note Medical Diagnosis: s/p left MARGA performed by Dr. Clark on 02/09/2018 Demographics: Age: 78Y Gender: Female Primary Language: Nigerien Preferred Language: Nigerien Rehabilitation Precautions/Restrictions: WBAT LLE SUBJECTIVE Patient Report: Do we have to? It's so cold Patient/Caregiver Goals: To go home Pain: Patient currently without complaints of pain. OBJECTIVE General Observation: Patient supine in bed upon arrival, hesitant but agreeable to therapy w/ encouragement required. Patient's arrived during treatment session. Functional Activities After Today's Session: Transfers: Bed mobility supine to sit and scooting to edge of bed (EOB) - SBA for safety. Patient transferred sit to stand from EOB w/ CGA for safety. Locomotion/Ambulation: Patient was minimal assist with gait/ambulation of 1 person for 70 feet x 2 . Patient requires the following assistive device(s): Rolling walker. Some LLE buckling noted at times, poor WW use/management, x 1 LOB occuring requiring Mod A for recovery. Unsteadiness noted. Stairs: Not assessed. Curb Negotiation: Not assessed. AM-PAC Basic Mobility: Turning Over in Bed: A little difficulty Sitting/Standing Chair with Arms: A little difficulty Lying on Back to Sitting on Side of Bed: A little difficulty Moving To/From Bed to Chair: A little help needed Walking in Hospital Room: A little help needed Climbing 3-5 Steps with Railing: A lot of help needed Raw Score = 17 , AM-PAC t-Scale Score = 42.13 and G-Code Modifier = CK Vital Signs: Not assessed. Interventions: [facility] PATIENT NAME: MAGGI KWAN [facility] MEDICAL REC #: [id number] [place] [address] ADMIT DATE: 02/09/18 SERVICE DATE: 02/10/18 Physical Therapy Progress Note ATTENDING PHY: Darci Clark DO Therapeutic Activities: Bed mobility, education on proper mobiliy techniques, education on precautions, max cues/education for improved safety awareness, functional transfer training, education on proper transfer techniques, standing balance w/ WW, gait training w/ WW, education on WW use/safety. Education on PoC and d/c planning. Seated bilat LE thex x 10 reps ea: heel/toe raises, LAQ, GS. Pain Reassessment: No significant change in pain during session. Education: Education Provided: Plan of care. Precautions. Bed mobility. Functional transfers. Safety. Equipment. Gait. Home exercise/activity plan. Audience: Patient and significant other. Mode: Explanation. Demonstration. Response: Needs practice. Needs reinforcement. No evidence of learning. ASSESSMENT Response to Visit: Patient responded fair to today's afternoon session. Patient did require some encouragement to participate w/ therapy, eventually agreeable to amb. Extensive patient and education provided this afternoon on therapy's current d/c recommendation. Patient and both reluctant to same. Per , patient w/ increased difficulty remembering directions/conversations. appeared resistant to new learning techniques despite max encouragement and education on importance of follow through w/ same. Patient continues to require hands on assist w/ amb, demo'd x 1 LOB w/ amb requiring Mod A to recover and is at very high risk for falls at this time. Continue to recommend inpatient therapy services less than 60 minutes upon d/c for improved overall safety and wellbeing. Activity/Participation Problem List and Goals: No updates at this time. Progress Toward Goals: TREATMENT GOAL REVIEW: 1. Complete 80 feet supv ww - Not Met: Ongoing 2. Complete transfers supv - Not Met Ongoing 3. Complete verbalization of HEP indep - Not Met Ongoing 4. complete 3 steps with bilat rail and SBA - Not Met: NT Time frame to achieve treatment goal(s): 2 weeks PLAN Treatment Frequency, Duration and Interventions: Physical Therapy is recommended for BID for three days Physical Therapy treatment is to include: Gait training, transfer training, balance, functional tasks, HEP, thera act, thera exercise, steps, education on home going safety/recommendations, educated on fall risk, education on mobility benefits, educate on ice management, educate on car transfer Recommended Physical Therapy Follow Up: Upon acute care discharge, the following [facility] PATIENT NAME: MAGGI KWAN [address] [facility] [address] MEDICAL REC #: [id number] [place] [address] ADMIT DATE: 02/09/18 SERVICE DATE: 02/10/18 Physical Therapy Progress Note ATTENDING PHY: Darci Clark DO is currently recommended: Inpatient Physical Therapy, LESS THAN 60 minutes per day. Recommended Equipment: None issued this visit. Recommended Consults: None currently. Development of Plan of Care: There was no change to plan of care today. If there are any questions regarding this service, please contact the Acute Therapy Department at extension [phone] Communication to Nursing: No updates at this time. Location of Patient at End of Therapy Session: In chair, call light within reach Services: Total Billed: 23 minutes (Timed: 23, Untimed: 0) 23.00 Timed: [91747] THER ACTIVITIES / 15 MIN 0.00 Untimed: [] PT Treatment- General ORDER Signed by: Yanni Pearl PTA 02/10/2018 15:13:57 - CoSigned By: Saurabh Alanis, 02/10/2018 3:35:13 PM [facility] PATIENT NAME: MAGGI KWAN [facility] REC #: [id number] [place] [address] ADMIT DATE: 02/09/18 SERVICE DATE: 02/10/18 Physical Therapy Progress Note ATTENDING PHY: Darci Clark DO PTPN Observed: 02/10/2018 Status: UNK Source: [facility] 12:38 PM [facility] Physical Therapy Inpatient Treatment Note Medical Diagnosis: s/p left MARGA performed by Dr. Clark on 02/09/2018 Demographics: Age: 78Y Gender: Female Primary Language: Nigerien Preferred Language: Nigerien Rehabilitation Precautions/Restrictions: WBAT LLE SUBJECTIVE Patient Report: It's a little sore Patient/Caregiver Goals: To go home Pain: Patient currently has pain. Patient reports a pain level of 3 out of 10. Interventions: Repositioned patient. OBJECTIVE General Observation: Patient supine in bed upon arrival, agreeable to therapy. Patient's present. Patient demo's decreased safety awareness and requires max cues/education for same. Functional Activities After Today's Session: Transfers: Bed mobility supine to sit and scooting to edge of bed (EOB) - SBA. Patient w/ good sitting balance on EOB. Patient transferred sit to/from stand x multiple trials w/ SBA. Locomotion/Ambulation: Patient was minimal assist with gait/ambulation of 1 person for 80 feet x 2 . Patient requires the following assistive device(s): Rolling walker. L [place] buckling noted at times, poor WW use/management w/ max cues and education required; patient w/ poor carryover. Ongoing cues to stay within parameters of WW. Unsteadiness noted. Quick cadance at times w/ cues for improved safety awareness. Stairs: Not assessed. Curb Negotiation: Not assessed. AM-PAC Basic Mobility: Turning Over in Bed: A little difficulty Sitting/Standing Chair with Arms: A little difficulty Lying on Back to Sitting on Side of Bed: A little difficulty Moving To/From Bed to Chair: A little help needed Walking in Hospital Room: A little help needed Climbing 3-5 Steps with Railing: A lot of help needed Raw Score = 17 , AM-PAC t-Scale Score = 42.13 and G-Code Modifier = CK Vital Signs: [facility] PATIENT NAME: MAGGI KWAN [facility] MEDICAL REC #: [id number] [place] [address] ADMIT DATE: 02/09/18 SERVICE DATE: 02/10/18 Physical Therapy Progress Note ATTENDING PHY: Darci Clark DO Not assessed. Interventions: Therapeutic Activities: Bed mobility, education on proper mobiliy techniques, education on precautions, max cues/education for improved safety awareness, functional transfer training, education on proper transfer techniques, standing balance w/ WW, gait training w/ WW, education on WW use/safety. Education on PoC. Pain Reassessment: Increase in pain during session. 06/24 Education: Education Provided: Precautions. Plan of care. Bed mobility. Functional transfers. Safety. Equipment. Gait. Audience: Patient and significant other. Mode: Explanation. Demonstration. Response: Needs practice. Needs reinforcement. No evidence of learning. ASSESSMENT Response to Visit: Patient responded fair to today's am session. Patient pleasant and willing to participate w/ therapy. Patient requires max cues/education for improved safety awareness throughout treatment session and demo's poor carryover/no evidence of learning. Patient demo's decreased safety awareness, poor WW use/management, requires hands on assist w/ amb and is at high risk for falls at this time. Feel as if patient would best benefit from inpatient therapy services less than 60 minutes upon d/c for improved overall safety and wellbeing. Activity/Participation Problem List and Goals: No updates at this time. Progress Toward Goals: TREATMENT GOAL REVIEW: 1. Complete 80 feet supv ww - Not Met: Ongoing 2. Complete transfers supv - Not Met Ongoing 3. Complete verbalization of HEP indep - Not Met Ongoing 4. complete 3 steps with bilat rail and SBA - Not Met: NT Time frame to achieve treatment goal(s): 2 weeks PLAN Treatment Frequency, Duration and Interventions: Physical Therapy is recommended for BID for three days Physical Therapy treatment is to include: Gait training, transfer training, balance, functional tasks, HEP, thera act, thera exercise, steps, education on home going safety/recommendations, educated on fall risk, education on mobility benefits, educate on ice management, educate on car transfer Recommended Physical Therapy Follow Up: Upon acute care discharge, the following is currently recommended: Inpatient Physical Therapy, LESS THAN 60 minutes per [facility] PATIENT NAME: MAGGI KWAN [facility] MEDICAL REC #: [id number] [place] [address] ADMIT DATE: 02/09/18 SERVICE DATE: 02/10/18 Physical Therapy Progress Note ATTENDING PHY: Darci Clark DO day. Recommended Equipment: None issued this visit. Recommended Consults: None currently. Development of Plan of Care: There was no change to plan of care today. If there are any questions regarding this service, please contact the Acute Therapy Department at extension [phone] Communication to Nursing: No updates at this time. Location of Patient at End of Therapy Session: In chair, call light within reach Services: Total Billed: 23 minutes (Timed: 23, Untimed: 0) 23.00 Timed: [75461] THER ACTIVITIES / 15 MIN 0.00 Untimed: [] PT Treatment- General ORDER Signed by: Yanni Pearl, [facility] 02/10/2018 12:55:16 - CoSigned By: Saurabh Alanis, 02/10/2018 1:26:42 PM [facility] PATIENT NAME: MAGGI KWAN [facility] MEDICAL REC #: [id number] [place] [address] ADMIT DATE: 02/09/18 SERVICE DATE: 02/10/18 Physical Therapy Progress Note ATTENDING PHY: Darci Clark DO [facility] Observed: 02/10/2018 Status: UNK Source: [facility] 12:30 PM [facility] Patient Name: MAGGI KWAN [facility] Date of : [address] [address] Unit Number: [id number] Progress Note-Hospitalist Patient Status: ADM IN Attending Doctor: Darci Clark DO Service Date: 02/10/18 1230 Chief Complaint Chief Complaint Status post left hip replacement Subjective S: (2 ROS minimum) Denied any chest pain or shortness of breath, no fever or chills. Objective (ROS) Nursing Vitals Vital Signs (Last) Result Date Time Pulse Ox 100 02/10 1110 B/P 107/42 02/10 1110 Temp 98.3 02/10 1110 Pulse 62 02/10 1110 Resp 17 02/10 1110 General Appearance Comfortable Physical Exam Physical Examination Notes General: [Patient is alert and oriented x3 and is in no acute respiratory distress] Lungs: [Clear to auscultation, no wheezing, rales, or rhonchi.] Cardiac: [Regular rhythm and rate, S1-S2 within normal limits, no murmurs, gallops were appreciated, no rubs.] Abdomen: [Soft, nontender, nondistended, bowel sounds are positive.] Extremities: No edema with postsurgical changes left hip Skin: [No rashes or breakdown.] Neurologic: [Cranial nerves from II-XII intact grossly.] Diagnostic Data: Medications Current Sig/Rosanna Start time Last Medication Dose Route Stop Time Status Admin Al Hydrox/Mg Hydrox/ 30 ML Q4HPRN PRN 02/09 09 AC Simethicone PO (MAALOX (ALAMAG)PLUS ORAL LIQ) Allopurinol 150 MG QHS 02/09 2200 AC 02/09 (ZYLOPRIM TAB) PO 2036 Diphenhydramine HCl 25 MG Q6HPRN PRN 02/09 0900 AC (BENADRYL CAP) PO Docusate Calcium 240 MG Q12H@21 02/09 0900 AC 02/10 (SURFAK CAP) PO 0748 Enoxaparin Sodium 40 MG Q24H 02/10 0900 AC 02/10 (LOVENOX D.SYR) SC 0749 Gabapentin 100 MG QID 02/10 1400 AC (NEURONTIN CAP) PO Hydromorphone HCl 2 MG Q3HPRN PRN 02/09 09 AC (DILAUDID D.SYR) IM Lactated Ringer's 1,000 ML CONT 02/09 0900 AC (Lactated Ringers) IV 02/11 0859 Metoprolol Tartrate 50 MG QDAY 02/10 09 AC (LOPRESSOR TAB) PO Ondansetron HCl 4 MG Q6HPRN PRN 02/09 09 AC (ZOFRAN VIAL) IV Oxycodone/ 1 UDTAB Q3HPRN PRN 02/09 0900 AC 02/10 Acetaminophen PO 0749 (percoCET-5/325 TAB) Oxycodone/ 2 UDTAB Q3HPRN PRN 02/09 0900 AC 02/10 Acetaminophen PO 0326 (percoCET-5/325 TAB) Pantoprazole Sodium 40 MG QDAYAC 02/10 0700 AC 02/10 (PROTONIX TAB) PO 0530 Pravastatin Sodium 20 MG QHS 02/09 2200 AC 02/09 (PRAVACHOL TAB) PO 2036 Sodium Chloride 1,000 ML ONCE ONE 02/10 0930 AC 02/10 (Sodium Chloride IV 02/10 2249 0931 0.9%) Sodium Chloride 3 ML Q8H 02/09 1400 AC (Sodium Chloride IV 0.9% FLUSH D.SYR) Sodium Chloride 3 ML PRN PRN 02/09 0900 AC (Sodium Chloride IV 0.9% FLUSH D.SYR) Tramadol HCl 50 MG Q6HPRN PRN 02/09 1200 AC (ULTRAM TAB) PO Zolpidem Tartrate 5 MG QHSPRN PRN 02/09 0900 AC (AMBIEN TAB) PO Lab 24hr (CBC/BMP Fishbone) 02/10/18 0453: [Embedded Image Not Available] Anion Gap 9, Est GFR ( Amer) 27, Est GFR (Non-Af Amer) 22, BUN/Creatinine Ratio 25 H, Glucose 140 H, Total Calcium 9.0, RBC 2.58 L, MCV 96.9, MCHC 31.2 L, RDW 16.4 H, MPV 10.4, Nucleated RBCs 0.0 Assessment and Plan Conclusion 1. Anemia Acute Acute on chronic secondary to postop blood loss. Continue with iron today 2. Chronic kidney disease (CKD), stage III (moderate) Acute Acute on chronic likely related to volume depletion postop blood loss anemia. Patient is instructed to hold lisinopril for 2 days Gentle hydration is recommended. 3. Hypertension Chronic 4. Gout Chronic 5. Hyperlipidemia Chronic 6. Osteoarthritis of left hip Chronic Status post left hip replacement day #1. Pain is controlled Discharge plan per the surgeon Stay Reason/Anticipated Disch Medically stable for discharge, follow-up HandH and renal panel might be needed next week. Disclaimer This dictation was created using voice recognition software. Phonetic and/or minor grammatical errors may exist. eSign Date and Time Ricardo James MD Verified/Reviewed by 02/10/18 1235 [email or web address] Observed: 02/10/2018 Status: UNK Source: [facility] 12:16 PM [facility] Patient Name: MAGGI KWAN [address] Date of : [address] [place] [address] Unit Number: [id number] Progress Note-Ortho Patient Status: ADM IN Attending Doctor: Darci Clark DO Service Date: 02/10/186 Progress Note - Ortho Subjective S: (2 ROS minimum) Patient is a 78-year-old female that is postop day 1 from left total hip arthroplasty. She is sitting comfortably in her chair. Is experiencing little pain at this time. She has no complaints or overnight events. Objective Nursing Vitals Vital Signs (Last) Result Date Time Pulse Ox 100 02/10 1110 B/P 107/42 02/10 1110 Temp 98.3 02/10 1110 Pulse 62 02/10 1110 Resp 17 02/10 1110 Physical Exam Left lower extremity -Skin/bandage -no excessive erythema or drainage on the bandage -Calf is nontender to palpation -5 out of 5 dorsiflexion and plantar flexion Diagnostic Data Lab 24hr (CBC/BMP Fishbone) 02/10/18 0453: [Embedded Image Not Available] Anion Gap 9, Est GFR ( Amer) 27, Est GFR (Non-Af Amer) 22, BUN/Creatinine Ratio 25 H, Glucose 140 H, Total Calcium 9.0, RBC 2.58 L, MCV 96.9, MCHC 31.2 L, RDW 16.4 H, MPV 10.4, Nucleated RBCs 0.0 Assessment/Plan Conclusion 1. Osteoarthritis of left hip Patient is to continue with outpatient physical therapy for 6-week She is to continue with lateral hip precautions DVT prophylaxis with Lovenox Continue regular diet Postop scripts given to patient Patient is ready for discharge today. 2. Hypertension 3. Hyperlipidemia 4. Chronic kidney disease (CKD), stage III (moderate) 5. Anemia 6. Gout Stable Problems Problems not specifically addressed in the above plan are stable and do not warrant adjustment of the current method of therapy. Disclaimer This dictation was created using voice recognition software. Phonetic and/or minor grammatical errors may exist. eSign Date and Time Marta Ac PAC Verified/Reviewed by 02/10/18 1219 Darci Clark Observed: 02/10/2018 Status: UNK Source: [facility] 10:35 AM [facility] REPOSITORY Occupational Therapy Inpatient Evaluation Medical Diagnosis: s/p left MARGA performed by Dr. Clark on 02/09/2018 OCCUPATIONAL PROFILE AND HISTORY Therapy Diagnosis: Rank Code Description 1 R26.81 Unsteadiness on feet 2 Z74.1 Need for assistance with personal care Demographics: Age: 78Y Gender: Female Primary Language: Nigerien Preferred Language: Nigerien Referring Service/Team: Orthopedics Past Medical History: Hypertension, gout, hyperlipidemia, osteoarthritis, CKD stage III per last lab work, anemia per lab work, suspect iron deficiency Past Surgical History She has had both knees replaced, right hip surgery, back surgery and cataracts. History of Present Illness: Date of Surgery: 02/09/18 Additional Information: Elective Surgery Date of Admission: 02/09/2018 6:00:00 AM Rehabilitation Precautions/Restrictions: WBAT LLE Imaging/Testing Results from Chart: N/A Prior Level of Functioning: Self Care: Patient completed the activities by him/herself, with or without an assistive device, with no assistance from a helper. Functional Cognition: Patient completed the activities by him/herself, with or without an assistive device, with no assistance from a helper. Denies use of AD. Notes on fall last year. Indep with ADL. Shares with cooking and cleaning with Patient/Caregiver Goals: Patient's functional goals: To go home Pain: Patient currently without complaints of pain. Home Environment: Patient lives with and sister. 24.7 assist , who is able to assist patient at discharge. Patient lives in a single family home. Home is single level. Patient is not required to manage stairs within the home. First floor full bathroom setup available. There are 3 steps to enter the home, with bilateral handrails. There is no ramp available to enter home. [facility] PATIENT NAME: MAGGI KWAN [address]ta [address] [facility] [address] MEDICAL REC #: [id number] [place] [id number] ADMIT DATE: 02/09/18 SERVICE DATE: 02/10/18 Occupational Therapy Assessment ATTENDING CHANDANAY: Darci Clark DO Tub shower combo with grab bars Equipment Owned: Shower seat, high commode, ww, cane, manual wc, crutches, Social History: Marital Status: Children: 1 Reside: Local Employment Status: Retired Recreational Activities/Hobbies: TV, going to eat, gambling OBJECTIVE/OCCUPATIONAL PERFORMANCE Activities of Daily Living Current Status Previous Status ADLs Feeding Independent - Grooming Supervision - Bathing-UE Supervision - Bathing-LE Minimal assistance - Dressing-UE Supervision - Dressing-LE Moderate assistance - Toileting Minimal assistance - AM-PAC Daily Activities: Putting On/Taking Off Lower Body Clothing: A lot of help needed Bathing:: A little help needed Toileting: A little help needed Putting On/Taking Off Upper Body Clothing: A little help needed Grooming: A little help needed Eating a Meal: No help needed Raw Score = 18 , AM-PAC t-Scale Score = 38.66and G-Code Modifier = CK Functional Mobility: Bed Mobility: All bed mobility including supine to sit, rolling, scooting. requiring stand by assistance. Transfers: Patient transferred sit to/from stand requiring contact guard assistance of 1 person. Locomotion/Gait/Ambulation: Patient was minimal assist with gait/ambulation of 1 person for 20' x 2 . Patient requires the following assistive device(s): Rolling walker. pt demo ataxic gait, unsteady, min A for balance and ww safety Range of Motion Upper Extremity: Grossly within functional limits Strength Upper Extremity: Grossly within functional limits [facility] PATIENT NAME: MAGGI KWAN [address] [facility] [address] MEDICAL REC #: [id number] [place] [id number] ADMIT DATE: 02/09/18 SERVICE DATE: 02/10/18 Occupational Therapy Assessment ATTENDING PHY: Darci Clark DO Balance: Dynamic balance in a seated position is good. Dynamic balance in a standing position is fair. Tone/Spasticity: No relevant impairments. Sensation: Grossly intact. Fine Motor Coordination: Fine motor coordination was not assessed. Gross Motor Coordination: Upper extremity gross motor coordination is intact. Edema: Edema is present. Location: Left lower extremity edema- Minimal. Location: Lower Extremity Function: See PT Vision: Within functional limits. Cognition: Within functional limits. Perceptual Skills: Within functional limits. Psychosocial: Within normal limits Interventions: Evaluation MOD Complexity Therapeutic Activities: Functional transfer and mobility training, instruction in safety, instruction in precautions Pain Reassessment: No significant change in pain during session. Education: The patient's preferred learning method is: Explanation, Demonstration Barriers to Learning: Acuity of illness, Cognitive limitations Learning Needs: Precautions. Plan of care. Rehabilitation techniques and procedures. Safety. Functional activities/mobility. Equipment. Education Provided: Precautions. Plan of care. Activities of daily living. Bed mobility. Functional transfers. Equipment. Safety. Audience: Patient. Mode: Explanation. Demonstration. Response: Verbalized understanding. Demonstrated skill. Needs practice. Needs reinforcement. ASSESSMENT Clinical Performance Deficits: Impaired ADLs, Impaired instrumental ADLs, Impaired functional mobility, Decreased strength, Impaired balance, Pain, Impaired transfers, Impaired cognition, Impaired insight, Impaired safety/judgment Equipment Recommended: TBD Rehabilitation Potential: Good [facility] PATIENT NAME: MAGGI KWAN [facility] [address] MEDICAL REC #: [id number] [place] [address] ADMIT DATE: 02/09/18 SERVICE DATE: 02/10/18 Occupational Therapy Assessment ATTENDING PHY: Darci Clark DO Motivation/Commitment to Therapy: Fair. Response to Evaluation: Pt tolerated session fairly. Pt demo unsteady gait and demo impaired insight and safety awareness throughout session despite thorough education. Attempt was made to educate spouse however spouse was not receptive to therapist instruction. Pt is a high fall risk and is not safe for homegoing. Pt requires further therapy upon d/c. Activity/Participation Problem List and Goals: Functional Impairment: Self Care Modifier: H6853-YV (at least 40%, but less than 60% impaired, limited, or restricted) Goal: supv Goal Modifier: M9987-WU (at least 20%, but less than 40% impaired, limited, or restricted) Treatment Goals: Time frame to achieve treatment goal(s): 2 weeks 1. Pt supv self care tasks w/good use of AE/techs 2. Pt supv bed mobility and functional transfers w/no v/c for safety or precautions 3. Pt supv household distance functional mobility w/safe use of ww 4. Pt supv 5 mins min challenging standing balance demonstrating safe ability to right self when needed 5. Pt recall hip precautions and demo good safety awareness during self care and mobility tasks 90% of the time w/min-->no v/c. PLAN Treatment Frequency, Duration and Interventions: Occupational Therapy is recommended for 6x/week Occupational Therapy treatment is to include: Graded ADLs, AE/techs, graded therex, graded theract, pt/caregiver education, home management, cognition and saefty Recommended Occupational Therapy Follow Up: Upon acute care discharge, the following is currently recommended: Inpatient Occupational Therapy, LESS THAN 60 minutes per day. Recommended Consults: None currently. Development of Plan of Care: Patient participated in plan of care development today. If there are any questions regarding this service, please contact the Acute Therapy Department at extension [phone] CARE WILL BE TRANSFERRED TO THE (CHOICE OF ACUTE OR REHAB) OCCUPATIONAL THERAPIST Communication to Nursing: No updates at this time. Location of Patient at End of Therapy Session: In chair, call light within reach [facility] PATIENT NAME: MAGGI KWAN [address] [facility] [address] MEDICAL REC #: [id number] [place] [address] ADMIT DATE: 02/09/18 SERVICE DATE: 02/10/18 Occupational Therapy Assessment ATTENDING PHY: Darci Clark DO Services: Total Billed: 10 minutes (Timed: 10, Untimed: 0) 10.00 Timed: [59417] THER ACTIVITIES / 15 MIN 0.00 Untimed: [40049] OT-EVALUATION MOD COMPLEX 0.00 Untimed: [] OT Evaluation ORDER 0.00 Untimed: [] OT Treatment General ORDER 0.00 Untimed: [G8987] OT-Self Care-CK 0.00 Untimed: [G8988] JD-Lqrc-Tfyq Care-CJ Signed by: Celina Mittal, 02/10/2018 16:47:50 [facility] PATIENT NAME: MAGGI KWAN [facility] [address] MEDICAL REC #: [id number] [place] [address] ADMIT DATE: 02/09/18 SERVICE DATE: 02/10/18 Occupational Therapy Assessment ATTENDING PHY: Darci Clark DO CBC Collected: 02/10/2018 Status: F Source: [facility] 4:53 AM [facility] REPOSITORY Order Comment: [place]: M TYPE CODE TESTS RESULT OUT OF RANGE REFERENCE UNITS LAB L200.89759 4.5-11.0 K/CUMM Normal WBC 10.9 LAB L200.40327 3.90-5.30 M/CU MM Low RBC 2.58 LAB L200.66094 11.5-15.5 G/DL Low HGB 7.8 LAB L200.32577 35.0-47.0 % Low HCT 25.0 LAB L200.12728 80.0-99.0 fl Normal MCV 96.9 LAB L200.41472 32.0-36.0 GM/DL Low MCHC 31.2 LAB L200.67881 11-14.5 High RDW 16.4 LAB L200.89668 9.4-12.4 Normal MPV 10.4 LAB L200.34048 150-450 K/CU MM Normal PLT 198 LAB L200.64909 Less than 1 % Normal NRBC 0.0 Performed By: #### L200.99982 #### [facility] [address] [place] [address] BMP Collected: 02/10/2018 Status: F Source: [facility] 4:53 AM [facility] REPOSITORY Order Comment: [place]: M TYPE CODE TESTS RESULT OUT OF RANGE REFERENCE UNITS LAB L500.20563 136-145 MMOL/L Normal NA 139 LAB L500.66694 3.5-5.1 MMOL/L Normal K 4.6 LAB L500.90810 98-107 MMOL/L High CL 108 LAB L500.96883 21-32 MMOL/L Normal CO2 22 LAB L500.29129 5-16 MMOL/L Normal AGAP 9 LAB L500.53496 70-100 MG/DL High GLU 140 Result Comment: 70-100- Normal Fasting; 100-125 Impaired Fasting; greater than 126 on more than one result- Diabetes. ADA guidelines. Results may be falsely elevated after the administration of Sulfapyridine. Results may be falsely depressed after the administration of Sulfasalazine. LAB L500.73480 7-26 MG/DL High BUN 54 LAB L500.07980 0.510-0.950 MG/DL High CREAT 2.160 Result Comment: Patients receiving either N-Acetylcysteine (NAC) or Metamizole prior to venipuncture, may have falsely depressed results. LAB L500.65297 15-24 High BUN/CREA 25 LAB L500.94101 8.5-10.1 MG/DL Normal CALCIUM TOTAL 9.0 Performed By: #### L500.18071, L500.65325 #### [facility] [address] [place] [address] GFR EST Collected: 02/10/2018 Status: F Source: [facility] 4:53 AM [facility] REPOSITORY Order Comment: [place]: M TYPE CODE TESTS RESULT OUT OF RANGE REFERENCE UNITS LAB L500.63714 ML/MIN Normal IF non-AFR 22 AMER LAB L500.41373 ML/MIN Normal IF 27 AMER Performed By: #### L500.49770, L500.28772 #### [facility] [address] [place] [address] PTAR Observed: 02/09/2018 Status: UNK Source: [facility] 11:47 AM [facility] REPOSITORY Physical Therapy Inpatient Evaluation Medical Diagnosis: s/p left MARGA performed by Dr. Clark on 02/09/2018 Therapy Diagnosis: Rank Code Description 1 R26.81 Unsteadiness on feet 2 M62.81 Muscle weakness (generalized) Demographics: Age: 78Y Gender: Female Primary Language: Nigerien Preferred Language: Nigerien Referring Service/Team: Orthopedics Past Medical History: Hypertension, gout, hyperlipidemia, osteoarthritis, CKD stage III per last lab work, anemia per lab work, suspect iron deficiency Past Surgical History She has had both knees replaced, right hip surgery, back surgery and cataracts. History of Present Illness: Date of Surgery: 02/09/2018 Additional Information: Elective Surgery Date of Admission: 02/09/2018 5:51:00 AM Rehabilitation Precautions/Restrictions: WBAT LLE Imaging/Testing Results from Chart: N/A SUBJECTIVE Prior Level of Functioning: Indoor Mobility: Patient completed the activities by him/herself, with or without an assistive device, with no assistance from a helper. Stairs: Patient completed the activities by him/herself, with or without an assistive device, with no assistance from a helper. Denies use of AD. Notes on fall last year. Indep with ADL. Shares with cooking and cleaning with Prior Device Use: Performance GG110. Prior Device None of Above Yes Patient/Caregiver Goals: Patient's functional goals: To go home Pain: Patient currently without complaints of pain. Home Environment: Patient lives with and sister. 24.7 assist , who is able to assist patient at discharge. Patient lives in a single family home. Home [facility] PATIENT NAME: MAGGI KWAN [address] [facility] [address] MEDICAL REC #: [id number] [place] [address] ADMIT DATE: 02/09/18 SERVICE DATE: 02/09/18 Physical Therapy Assessment Report ATTENDING PHY: Darci Clark DO is single level. Patient is not required to manage stairs within the home. First floor full bathroom setup available. There are 3 steps to enter the home, with bilateral handrails. There is no ramp available to enter home. Tub shower combo with grab bars Equipment Owned: Shower seat, high commode, ww, cane, manual wc, crutches, Social History: Marital Status: Children: 1 Reside: Local Employment Status: Retired Recreational Activities/Hobbies: TV, going to eat, gambling OBJECTIVE Cognitive Screen Responsiveness: Alert, anxious Orientation: Oriented to person, place, time, and situation. Following Commands: Patient is able to follow 3-step commands. Range of Motion Upper Extremity: Grossly within functional limits Lower Extremity: Not within functional limits LLE ROM decrease Strength Upper Extremity: Grossly within functional limits Lower Extremity: Not within functional limits LLE MMT deferred Tone/Spasticity: Within Normal Limits throughout. Sensation: Grossly intact. Balance: Dynamic balance in a standing position is good. CGA Therapeutic/Functional Activities: Bed Mobility: All bed mobility including supine to sit, rolling, scooting. requiring minimal assistance. Min assistance to lift and lower Transfers: Patient transferred sit to/from stand requiring minimal assistance of 1 person. Patient used the following equipment: Arms of chair. Min assistance to initiate transfer Patient transferred to/from the toilet requiring minimal assistance of 1 person. Patient used the following equipment: Grab bars. Min assistance to complete transfer Locomotion/Gait/Ambulation: Patient was contact guard with gait/ambulation of 1 person for 20 feet x 2 . Patient requires the following assistive device(s): Rolling walker. Slow step to gait pattern initially progressed to slow kelly reciprocal, Gait Deviations: No gait deviations. Stairs: Not assessed. AM-PAC Basic Mobility: Turning Over in Bed: A little difficulty [facility] PATIENT NAME: MAGGI KWAN [facility] [address] MEDICAL REC #: [id number] [place] [address] ADMIT DATE: 02/09/18 SERVICE DATE: 02/09/18 Physical Therapy Assessment Report ATTENDING PHY: Darci Clark DO Sitting/Standing Chair with Arms: A little difficulty Lying on Back to Sitting on Side of Bed: No difficulty Moving To/From Bed to Chair: A little help needed Walking in Hospital Room: A little help needed Climbing 3-5 Steps with Railing: A little help needed Raw Score = 19 , AM-PAC t-Scale Score = 45.44 and G-Code Modifier = CK Vital Signs: Not assessed. Interventions: Evaluation LOW Complexity Therapeutic Activities: AP, LAQ, gut sets, educated on PT plan of care, educated on mobility benefits, educated on discharge recommendation Pain Reassessment: Increase in pain during session. Increase with ambulation Education: The patient's preferred learning method is: Explanation, Demonstration Barriers to Learning: Acuity of illness Learning Needs: Precautions. Pain management. Plan of care. Rehabilitation techniques and procedures. Safety. Education Provided: No education provided this session. ASSESSMENT Problem List: Decreased endurance, Impaired ambulation, Impaired balance, Impaired stair/curb negotiation Strengths: Independent premorbid function Rehabilitation Potential: Good Pt agreeable Motivation/Commitment to Therapy: Good. Response to Evaluation: Patient tolerated PT eval well. Educated patient on hip precautions, weight bearing status, functional transfer training, safety awareness, and therapeutic exercise. Patient completed functional mobility of transfers and gait with CGA/ min assistance along with verbal cues for safety concerns. Implement acute care physical therapy interventions to address limitations, gait, and steps in preparations for home going. Recommend home with HEP upon acute care discharge. Activity/Participation Problem List and Goals: Functional Impairment: Mobility: Walking and Moving Around. Modifier: I1748-ZN (at least 40%, but less than 60% impaired, limited, or restricted) Goal: Complete 50 feet supv ww Goal Modifier: K5830-UK (at least 1%, but less than 20% impaired, limited or restricted) [facility] PATIENT NAME: MAGGI KWAN [facility] [address] MEDICAL REC #: [id number] [place] [address] ADMIT DATE: 02/09/18 SERVICE DATE: 02/09/18 Physical Therapy Assessment Report ATTENDING PHY: Darci Clark DO Treatment Goals: Time frame to achieve treatment goal(s): 2 weeks 1. Complete 80 feet supv ww 2. Complete transfers supv 3. Complete verbalization of HEP indep 4. complete 3 steps with bilat rail and SBA PLAN Treatment Frequency, Duration and Interventions: Physical Therapy is recommended for BID for three days Physical Therapy treatment is to include: Gait training, transfer training, balance, functional tasks, HEP, thera act, thera exercise, steps, education on home going safety/recommendations, educated on fall risk, education on mobility benefits, educate on ice management, educate on car transfer Recommended Physical Therapy Follow Up: Upon acute care discharge, the following is currently recommended: Home exercise program. Recommended Equipment: Rolling walker. ww . Rolling walker. Recommended Consults: Occupational Therapy. Development of Plan of Care: Patient participated in plan of care development today. Pt agreeable If there are any questions regarding this service, please contact the Acute Therapy Department at extension [phone] Communication to Nursing: Walking: CGa Location of Patient at End of Therapy Session: In chair, call light within reach Services: Total Billed: 9 minutes (Timed: 9, Untimed: 0) 9.00 Timed: [45623] THER ACTIVITIES / 15 MIN 0.00 Untimed: [34244] PT-EVALUATION LOW COMPLEXITY 0.00 Untimed: [] PT Evaluation ORDER 0.00 Untimed: [] PT Treatment- General ORDER 0.00 Untimed: [G8978] PT-Mobility: Walking and Moving Around-CK 0.00 Untimed: [G8979] QQ-Ggbk-Ltgycgxd: Walking and Moving Around-CI Signed by: Liliane Pike, 02/09/2018 13:49:18 [facility] PATIENT NAME: MAGGI KWAN [facility] [address] MEDICAL REC #: [id number] [place] [address] ADMIT DATE: 02/09/18 SERVICE DATE: 02/09/18 Physical Therapy Assessment Report ATTENDING PHY: Darci Clark DO HP.[email or web address].[email or web address] Observed: 02/09/2018 Status: UNK Source: [facility] 11:39 AM [facility] Patient Name: MAGGI KWAN [facility] [address] Date of : [address] [place] [address] Unit Number: [id number] CONSULTATION-HandP [place] [facility] [place] Doctor: Darci Clark DO Service Date: 02/09/18 1139 History of Present Illness Referring Physician Darci Clark DO Consulted Provider Ricardo James MD Reason for Consult MED MGT, HX OF HTN History of Present Illness This is a pleasant 78-year-old female patient of Dr. Reyes, who presented to [facility] for left hip replacement with Dr. Clark. Patient has had ongoing left hip pain not improved with conservative management. We have been asked to see for medical management. Patient has history of hypertension, hyperlipidemia, gout, osteoarthritis. She is seen in PACU and does complain of some left hip pain 5 out of 10. She denies any nausea, chest pain, shortness of breath. Past Medical/Surgical Hx Past Medical History Hypertension, gout, hyperlipidemia, osteoarthritis, CKD stage III per last lab work, anemia per lab work, suspect iron deficiency Past Surgical History She has had both knees replaced, right hip surgery, back surgery and cataracts. Family/Social History Family Hx Other/Comment Patient does not recall any specific family history, both parents are . Social Hx She is , quit smoking years ago, denies any alcohol or illicit drug use. Advance Directives Advance Directives Full Code Allergies/Home Medications Allergies Coded Allergies: CIPROFLOXACIN (From CIPRO) (Mild, SWELLING OF THE LIPS 04/02/10) ciprofloxacin HCl (From CIPRO) (Mild, SWELLING OF THE LIPS 04/02/10) SEASONAL ALLERGIES (02/07/18) Home Medications Allopurinol* (Zyloprim 100MG Tab*) 100 MG TABLET 150 MG PO QHS, Ref 0 (Reported) Entered as Reported by ERIKA HAGER on 01/25/181327 Last Action: Continued on 02/09/18 113 by DYANA HAIR Aspirin* (Aspir 81 MG Tab*) 81 MG TABLET. 81 MG PO QDAYWM, Ref 0 (Reported) TO CALL FOR INSTRUCIONS Entered as Reported by ERIKA HAGER on 01/25/18 132 Last Action: Reviewed on 02/09/18 0754 by GABRIEL PINA Gabapentin* (Neurontin 300MG Cap*) 300 MG CAPSULE 300 MG PO QID, Ref 0 (Reported) Entered as Reported by ERIKA HAGER on 01/25/181327 Last Action: Continued on 02/09/181137 by DYANA HAIR Lisinopril* (Prinivil 40MG Tab*) 40 MG TABLET 40 MG PO QDAY, Ref 0 (Reported) Entered as Reported by ERIKA HAGER on 01/25/181327 Last Action: Continued on 02/09/181137 by DYANA HAIR metoprolol TARTRATE* (Lopressor 50MG Tab*) 50 MG TABLET 50 MG PO QDAY, Ref 0 (Reported) Entered as Reported by ERIKA HAGER on 01/25/18 1327 Last Action: Continued on 02/09/18 113 by DYANA HAIR Pravastatin Sodium* (Pravachol 20MG Tab*) 20 MG TABLET 20 MG PO QHS, Ref 0 (Reported) Entered as Reported by ERIKA HAGER on 01/25/18 132 Last Action: Continued on 02/09/181137 by DYANA HAIR Tramadol HCl* (Ultram 50MG Tab*) 50 MG TABLET 50 MG PO Q6HPRN PRN PAIN, Ref 0 (Reported ) Entered as Reported by ERIKA HAGER on 01/25/18 1329 Last Action: Continued on 02/09/18 1138 by DYANA HAIR Review of Systems ROS: Other Constitutional - Denies any fever, chills, fatigue. But does complain of some left hip pain postoperatively 5 out of 10. Eyes - Denies any blurred vision, double vision. HEENT -Denies any difficulty hearing, difficulty swallowing, headaches, or sore throat. Cardiovascular - Denies any chest pain, chest pressure, palpitations or dizziness. Respiratory - Denies any cough, hemoptysis, shortness of breath. Gastrointestinal - Denies any abdominal pain, diarrhea, nausea, or vomiting. Genitourinary - Denies any dysuria, hematuria. Skin -Denies any jaundice, rash. Neurologic - Denies any blurred vision, double vision, slurred speech, headaches, or numbness and tingling. Psychiatric - Denies any anxiety, depression. Physical Exam Vital Signs Vitals and PACU as follows: 61 heart rate, 128/61, 100% on simple mask Preoperative lab work was reviewed. HandP reviewed on chart Constitutional - Patient appears appropriate, alert lying in bed in no distress Eyes - Anicteric, normal conjunctiva. ENT - Head normocephalic,atraumatic. Oral mucosa pink and moist. Neck supple, trachea midline. Cardiovascular - Heart is regular rate and rhythm. No gallops, rubs, murmurs noted. No carotid bruit noted. Respiratory-nonlabored, regular, even. Clear to auscultation. Skin - Appears warm, dry, left hip dressing dry and intact Gastrointestinal - Abdomen soft, bowel sounds present, nontender. No guarding or rebounding noted. Genitourinary - Not examined Lymph - No gross lymphadenopathy noted. Musculoskeletal - Grasps appear moderate in strength and equal. Pulses are +2. No edema noted. Neurologic - Patient is alert and oriented and appropriate 3. Speech is clear. No facial droop noted. Psychiatric - Patient appears calm, no anxiety or depression noted. Conclusion / Plan Conclusion 1. Hypertension Home meds resumed, stable. 2. Gout Home medications resumed 3. Hyperlipidemia Statin resumed 4. Osteoarthritis of left hip Status post left knee replacement. Surgery managing. DVT and GI prophylaxis per surgeon. Encourage incentive spirometry. Thank you for allowing us to participate in the medical management of this patient. We will continue to follow as needed. 5. Anemia Patient was anemic prior to surgery. Appears she may have some iron deficiency. Recommend iron supplementation. Unsure if she received iron prior to surgery. 6. Chronic kidney disease (CKD), stage III (moderate) Appears to have some underlying kidney disease, will follow BMP. Collaborating Physician Ricardo James MD Disclaimer This dictation was created using voice recognition software. Phonetic and/or minor grammatical errors may exist. eSign Date and Time Dyana Hair Verified/Reviewed by 02/09/18 1148 Ricardo James MD Collected: 02/09/2018 Status: F Source: [facility] 6:42 AM [facility] REPOSITORY Order Comment: [place]: M TYPE CODE TESTS RESULT OUT OF RANGE REFERENCE UNITS LAB L200.03596 11.5-15.5 G/DL Low HGB 10.6 LAB L200.68059 35.0-47.0 % Low HCT 34.8 Performed By: #### L200.31919 #### [facility] [address] [place] [address] IRON PANEL Collected: 02/09/2018 Status: F Source: [facility] 6:42 AM [facility] REPOSITORY Order Comment: [place]: M TYPE CODE TESTS RESULT OUT OF RANGE REFERENCE UNITS LAB L500.09844 50-170 UG/DL Low IRON 36 Result Comment: Patients treated with metal-binding drugs (e.g.deferoxamine) may have depressed iron values, as chelated iron may not properly react in the Siemens iron assay. LAB L500.78588 221-481 UG/DL Normal TIBC 242 LAB L500.22898 22-44 % Low IRON SAT 15 Performed By: #### L500.49157, L500.49740 #### [facility] [address] [place] [address] FERR Collected: 02/09/2018 Status: F Source: [facility] 6:42 AM [facility] REPOSITORY Order Comment: [place]: M TYPE CODE TESTS RESULT OUT OF RANGE REFERENCE UNITS LAB L500.73083 8.0-307.0 NG/ML Normal FERR 232.2 Performed By: #### L500.67977, L500.41839 #### [facility] [address] [place] [address] TS Collected: 02/09/2018 Status: F Source: [facility] 6:42 AM [facility] REPOSITORY Order Comment: [place]: M Patient transfused or in the past 3 months: NO Is This Patient Going To Surgery? Y Surgery Date: 02/09/18 TYPE CODE TESTS RESULT OUT OF RANGE REFERENCE UNITS LAB B100.0400 O Normal BLOOD TYPE POSITIVE LAB B100.0680 Normal ANTIBODY TNP SCREEN Result Comment: Patient was NOT transfused or in the past 3 months. Antibody screen not indicated. HIP COMP 2-3 VIEWS Observed: 02/09/2018 Status: F Source: [facility] 6:00 AM [facility] REPOSITORY HIP COMP 2-3 VIEWS LEFT Ordering Physician: Monty Brown 02/09/2018 8:57 AM LEFT HIP TWO VIEWS: Clinical Statement: Postop Comparison: Left hip radiographs 01/13/2018 FINDINGS: Postoperative changes of left total hip arthroplasty are seen with expected soft tissue gas around the hip. There is no hardware complication. IMPRESSION: Postoperative changes of left total hip arthroplasty without evidence of complication. A stat report was faxed to the referring unit at the time of the study. ---- Electronic Signature on File ---- Signed By: Zee Lassiter MD [email or web address] Dictated: 02/09/2018 11:42 AM Signed: 02/09/2018 11:44 AM Reported By: ZEE LASSITER M.D. Signed By: ZEE LASSITER M.D. OR Observed: 02/09/2018 Status: UNK Source: [facility] 5:51 AM [facility] REPOSITORY DATE OF SERVICE: 02/09/2018 PREOPERATIVE DIAGNOSIS: Primary end-stage osteoarthritis of the left hip. POSTOPERATIVE DIAGNOSIS: Primary end-stage osteoarthritis of the left hip. OPERATION: Anterolateral total hip replacement, left, utilizing Johnson and Nephew size 8 Anthology standard offset femoral component with a 36-mm Oxinium +0 head, a 52-mm hemispherical acetabular cup, and a 0-degree 36-mm liner. SURGEON: Darci Clark DO ANIMAL SHELTER MANAGER: CAITLIN Sullivan, orthopedic resident. ANESTHESIA: General with local for postoperative pain management. BLOOD LOSS: 100. COMPLICATIONS: None. HISTORY: Maggi is a 78-year-old white female, well known to me, had a total hip on the other side many years ago. Did well. Now, has had significant deterioration of the left hip. She is now ready for surgical intervention. We did discuss that procedure with her. The risks, the benefits, postoperative management. We showed her the model. We asked her her goal, which would be able to ambulate without fear of falling and having chronic pain. We then discussed risks and benefits of postoperative management. She is aware. Consent signed. DESCRIPTION OF PROCEDURE: Patient was brought down to the OR, placed in the supine position. After induction of anesthesia, she was placed in a lateral decubitus position with the left hip up. The left hip was then sterilely prepped and draped in the usual orthopedic fashion. A 10-cm incision was made over the lateral aspect of the left hip. Sharp dissection through the skin. Blunt dissection through the subcutaneous tissues until the tensor fascia debbi was identified. This was then incised the length of the incision. The Charnley retractor was placed deep and then an anterolateral approach to the hip was performed. Here, we found substantial avulsion and damage to the gluteus medius tendon with significant osteophyte formation. The osteophytes were removed with an osteotome. We went ahead and reflected those structures anteriorly until the hip joint was identified. The hip was then dislocated, exposing the underlying severely deformed and eroded femoral head. Oscillating saw was utilized to remove the femoral neck and head. We then placed retractors deep, debrided the labrum, and then started our reaming. We ended up going with a 52 trial and then impacted our 52-mm hemispherical cup in about 40 degrees of inclination, 15 degrees of anteversion, and [facility] PATIENT NAME: MAGGI KWAN [address] [facility] [address] [facility] MEDICAL REC #: [id number] [place] [id number] ADMIT DATE: DISCHARGE DATE: OPERATIVE REPORT ATTENDING URIEL: Darci Clark DO then impacted in a 36-mm 0-degree liner. We then exposed the proximal femur, lateralized with a box chisel, used a rasp to lateralize further and then tried our broaches. We broached up to a number 8, trialed with a standard offset with a +0 head which fit tight and stable. Leg lengths appeared to be equal since she was short prior. We then dislocated the hip, irrigated with our Irrisept, injected our local mixture in the deep and superficial tissues for postoperative pain management, made three drill holes in the trochanteric ridge and then placed number 5 Ethibond sutures through those to repair our gluteus medius. We then impacted in our number 8 stem, our plus 0, 36-mm Oxinium head, reduced the hip, took it through a full [id number] without instability, and then irrigated again with Irrisept and saline and then closed our gluteus minimus with a number 2 Ethibond, vastus lateralis with a number 2 Ethibond, and then the number 5s were utilized to repair the gluteus medius back to the trochanter through the bone tunnels. We then irrigated one more time and then closed our tensor fascia debbi with a number 1 Ethibond, subcuticular closure with 0 Vicryl, 3-0 Vicryl, rajesh, silver dressing, and a well-padded dressing. She was then transported on her back, extubated, and transported to her bed and to the recovery room in a stable condition. Marta Ac PA-C assisted with proper preoperative positioning, determining availability of proper implants, prepping and draping of patient, manipulation placement of instruments, protection of ligaments and vital soft tissue structures, assistance in maintaining hemostasis with assistance with closure of wound. Her skills and knowledge of the steps of the operation and the desired outcome of each surgical step was crucial, allowing for an efficient surgical procedure, and closure of the wound which lead to reduced surgical time, less blood loss, and less risk of complications for the patient. Darci Clark DO [id number] SSI File#: [id number] Verified/Reviewed by 02/09/18 1059 LYKMI [facility] PATIENT NAME: MAGGI KWAN [facility] MEDICAL REC #: [id number] [place] [address] ADMIT DATE: DISCHARGE DATE: OPERATIVE REPORT ATTENDING PHY: Darci Clark DO VL VENOUS UNILATERAL Observed: 02/04/2018 Status: F Source: [facility] EXT FOR DVT 1:58 PM [facility] REPOSITORY ORIGINAL DUPLEX LOWER EXTREMITY VENOUS DOPPLER: RIGHT side Clinical Statement: edema , RIGHT lower extremity pain and edema Comparison: None Findings: The RIGHT femoral and popliteal veins and the proximal visualized portions of the posterior tibial, peroneal, soleal and gastrocnemius veins show no direct or indirect evidence of thrombosis. There is n ormal phasic spontaneous flow in these veins which are also compressible. Spectral analysis shows normal flow augmentation in the superficial femoral and popliteal veins with physiologic maneuvers. The greater and lesser saphenous veins are also patent. IMPRESSION: No evidence of deep vein thrombosis in RIGHT lower extremity. Interpreted By: Rodolfo Tuttle MD Preliminary Report By: Rodolfo Tuttle MD Electronically Signed By: Rodolfo Tuttle MD Dictated Date: 02/04/2018 4:32:39 PM Prelim Date: 02/04/2018 4:32:39 PM Sign Date: 02/04/2018 4:33:22 PM HH, HEMOGLOBIN AND Collected: 02/02/2018 Status: F Source: [facility] TYPE CODE TESTS RESULT OUT OF RANGE REFERENCE UNITS LAB L100.1300 12.0-15.0 g/dl Low HGB 9.9 LAB L100.1400 37-47 % Low HCT 31.6 Performed By: #### L100.0600 #### [facility] [address] [place], [address] RENAL PROFILE Collected: 02/02/2018 Status: F Source: [facility] 10:38 AM [facility] REPOSITORY TYPE CODE TESTS RESULT OUT OF RANGE REFERENCE UNITS LAB L501.0100 74-106 mg/dL Normal GLU 102 Result Comment: Fasting Glucose result from 100 to 125 mg/dL suggests IMPAIRED HOMEOSTASIS per A.D.A. criteria. Please note revised GLUCOSE reference range effective 2017. LAB L501.1000 7-18 mg/dL High BUN 43 LAB L501.1100 0.55-1.02 mg/dL High CREAT,SERUM 1.60 Result Comment: The validity of the calculated GFR AND GFRAA in patients over 70 years has not been determined. Clinical correlation is essential. LAB L501.1110 >60 mL/min Low EST GFR 33 Result Comment: Non- GFR Calc LAB L501.1115 >60 mL/min Low EST GFR - AA 40 Result Comment: GFR Calc LAB L501.1300 10-20 RATIO High BUN/CRE 26.9 LAB L501.1800 3.2-5.0 g/dL Normal ALB 3.4 LAB L501.2200 8.5-10.1 mg/dL CA Normal 9.9 LAB L501.2300 2.5-4.9 mg/dL Normal PHOS 3.1 LAB L501.5300 136-145 mmol/L NA Normal 140 LAB L501.5600 3.5-5.1 mmol/L K Normal 4.4 LAB L501.5900 98-107 mmol/L CL Normal 107 LAB L501.6100 21.0-32.0 mmol/L Normal CO2 27.0 Performed By: #### L500.3600 #### [facility] [address] [place], [address] CBC W/DIFF Collected: 2018 Status: F Source: [facility] 3:30 PM [facility] REPOSITORY Order Comment: [place]: M TYPE CODE TESTS RESULT OUT OF RANGE REFERENCE UNITS LAB L200.43354 4.5-11.0 K/CU MM WBC Normal 6.9 LAB L200.00600 3.90-5.30 M/CU MM Low RBC 3.30 LAB L200.05465 11.5-15.5 G/DL Low HGB 10.0 LAB L200.20560 35.0-47.0 % Low HCT 32.5 LAB L200.23354 80.0-99.0 fl MCV Normal 98.5 LAB L200.30569 32.0-36.0 GM/DL Low MCHC 30.8 LAB L200.86809 11-14.5 High RDW 16.2 LAB L200.87233 9.4-12.4 MPV Normal 10.9 LAB L200.78490 150-450 K/CU MM PLT Normal 245 LAB L200.84139 45-75 % NEUTROPHILS Normal % 51.8 LAB L200.12960 Less than 2 % IMMATURE Normal GRAN % 0.1 LAB L200.88495 20-40 % LYMPH % Normal 39.0 LAB L200.61148 2-10 % MONOCYTE % Normal 7.7 LAB L200.34752 0-5 % EOSINOPHIL Normal % 1.0 LAB L200.07476 0-2 % BASOPHIL % Normal 0.4 LAB L200.63172 2.0-8.3 K/CU MM NEUTROPHIL Normal ABS 3.60 LAB L200.34580 Less than 2 K/CU MM IMMATR GRAN Normal ABS 0.00 LAB L200.85363 0.9-4.4 K/CU MM LYMPH ABS Normal 2.70 LAB L200.91922 0.1-1.1 K/CU MM MONO ABS Normal 0.50 LAB L200.35874 0-0.5 K/CU MM EOS ABS Normal 0.10 LAB L200.93677 0-0.2 K/CU MM BASO ABS Normal 0.00 LAB L200.05587 Less than 1 % NRBC Normal 0.0 Performed By: #### L200.08195 #### [facility] [address]# [phone] PT Collected: 2018 Status: F Source: [facility] 3:30 PM [facility] REPOSITORY Order Comment: [place]: M TYPE CODE TESTS RESULT OUT OF RANGE REFERENCE UNITS LAB L300.08150 0.9-1.1 Normal INR 1.00 Result Comment: Recommended PT INR therapeutic range for terminal makeup operator and prophylactic therapy is 2.0 - 3.0. For heart valve and shunt patients the range is 2.5 - 3.5. LAB L300.23160 9.5-12.0 SECONDS Normal PTS 10.6 Performed By: #### L300.62276, L300.27004 #### [facility] [address] [place] [address] PTT Collected: 2018 Status: F Source: [facility] 3:30 PM [facility] REPOSITORY Order Comment: [place]: M TYPE CODE TESTS RESULT OUT OF RANGE REFERENCE UNITS LAB L300.17253 22.0-31.5 SECONDS Normal PTT 25.4 Result Comment: Therapeutic Heparin Reference Range: High Dose: 46-75 seconds (DVT/PE) Low Dose: 39-60 seconds (Acute Coronary Syndrome) For low molecular weight heparin or danaparoid, monitoring is often NOT necessary, but the heparin assay, Xa inhibition assay (send-out) may be used in certain circumstances, as the PTT is generally insensitive to the effect of these agents. Direct thrombin inhibitors are becoming more widely utilized and these drugs are often monitored using the PTT. Performed By: #### L300.08668, L300.23666 #### [facility] [address] [place] [address] ABO/RH NC Collected: 2018 Status: F Source: [facility] 3:30 PM [facility] REPOSITORY Order Comment: [place]: M Is This Patient Going To Surgery? Y Surgery Date: 02/09/19 TYPE CODE TESTS RESULT OUT OF RANGE REFERENCE UNITS LAB B100.0400 O Normal BLOOD POSITIVE TYPE ANTIBODY SCREEN Collected: 2018 Status: F Source: [facility] 3:30 PM [facility] REPOSITORY Order Comment: [place]: M Is This Patient Going To Surgery? Y Surgery Date: 02/09/19 TYPE CODE TESTS RESULT OUT OF RANGE REFERENCE UNITS LAB B100.0680 Normal ANTIBODY NEGATIVE SCREEN BMP Collected: 2018 Status: F Source: [facility] 3:30 PM [facility] REPOSITORY Order Comment: [place]: M TYPE CODE TESTS RESULT OUT OF RANGE REFERENCE UNITS LAB L500.11438 136-145 MMOL/L Normal NA 140 LAB L500.27475 3.5-5.1 MMOL/L Normal K 4.4 LAB L500.11048 98-107 MMOL/L Normal CL 104 LAB L500.36724 21-32 MMOL/L Normal CO2 28 LAB L500.49229 5-16 MMOL/L Normal AGAP 7 LAB L500.12004 70-100 MG/DL Normal GLU 82 Result Comment: 70-100- Normal Fasting; 100-125 Impaired Fasting; greater than 126 on more than one result- Diabetes. ADA guidelines. Results may be falsely elevated after the administration of Sulfapyridine. Results may be falsely depressed after the administration of Sulfasalazine. LAB L500.44206 7-26 MG/DL High BUN 35 LAB L500.81666 0.510-0.950 MG/DL High CREAT 1.430 Result Comment: Patients receiving either N-Acetylcysteine (NAC) or Metamizole prior to venipuncture, may have falsely depressed results. LAB L500.05299 15-24 BUN/CREA High 25 LAB L500.88863 8.5-10.1 MG/DL CALCIUM High TOTAL 10.2 Performed By: #### L500.01553, L500.25240 #### [facility] [address] [place] [address] GFR EST Collected: 2018 Status: F Source: [facility] 3:30 PM [facility] REPOSITORY Order Comment: [place]: M TYPE CODE TESTS RESULT OUT OF RANGE REFERENCE UNITS LAB L500.46747 ML/MIN Normal IF non-AFR 36 AMER LAB L500.52645 ML/MIN Normal IF 43 AMER Performed By: #### L500.08757, L500.91171 #### [facility] [address] [place] [address] HGB A1C GLYCOHB Collected: 2018 Status: F Source: [facility] 3:30 PM [facility] REPOSITORY Order Comment: [place]: M TYPE CODE TESTS RESULT OUT OF RANGE REFERENCE UNITS LAB L550.66757 4.3-6.0 Normal HGB A1C 5.4 GLYCOHB Performed By: #### L550.27229 #### [facility] [address] [place] [address] MRSA PCR Collected: 2018 Status: F Source: [facility] 2:50 PM [facility] REPOSITORY Order Comment: [place]: M TYPE CODE TESTS RESULT OUT OF RANGE REFERENCE UNITS LAB L770.56673 NEGATIVE Normal MRSA NEGATIVE PCR Result Comment: PLEASE NOTE: TESTING DONE BY [employer]. The SA Nasal complete MRSA assay on the YES.TAP GeneXpert has not been validated for use on patients under 21 years of age. All patients under 21 years of age, run on the GeneXpert will be confirmed by a Blood [place] plate, followed by an ERICK, to confirm MRSA. LAB L770.71094 NEGATIVE High POSITIVE SA PCR Result Comment: PLEASE NOTE: TESTING DONE BY [employer]. Performed By: #### L770.86724 #### [facility] [address] [place] [address]# [phone] Observed: 2018 Status: F Source: [facility] URINE CULTURE 2:30 PM [facility] REPOSITORY Order Comment: [place]: URINE RESULT 15-20,000 COL/ML MIXED TINO-PLEASE REPEAT-POSSIBLE CONTAMIN Performed By: #### M100.11997 #### [facility] [address] [place] [address] EKG Observed: 2018 Status: UNK Source: [facility] 2:09 PM [facility] REPOSITORY Procedure Date and Time: 01/26/18 1525 Test Reason : Blood Pressure : / mmHG Vent. Rate : 051 BPM Atrial Rate : 051 BPM P-R Int : 216 ms QRS Dur : 102 ms QT Int : 446 ms P-R-T Axes : 111 -28 025 degrees QTc Int : 411 ms Sinus bradycardia 1st degree AV block Otherwise normal ECG When compared with ECG of 21-APR-2010 07:17, NC interval has increased Vent. rate has decreased BY 38 BPM Confirmed by Silvia Cano ([id number]) on 2018 10:19:28 PM Referred By: Darci Clark Confirmed By:Silvia Cano Golden DDandT: 01/26/18 1525 TDandT: [facility] PATIENT NAME: MAGGI KWAN [facility] MEDICAL REC #: [id number] [place] [address] ADMIT DATE: DISCHARGE DATE: ATTENDING PHY: Darci Clark DO ELECTROCARDIOGRAM REPORT CLB cc: [facility] PATIENT NAME: MAGGI KWAN [address] [facility] [address] MEDICAL REC #: [id number] [place] [address] ADMIT DATE: DISCHARGE DATE: ATTENDING PHY: Darci Clark DO ELECTROCARDIOGRAM REPORT HH, HEMOGLOBIN AND Collected: 01/19/2018 Status: F Source: [facility] 10:20 AM [facility] REPOSITORY TYPE CODE TESTS RESULT OUT OF RANGE REFERENCE UNITS LAB L100.1300 12.0-15.0 g/dl Low HGB 9.6 LAB L100.1400 37-47 % Low HCT 30.6 Performed By: #### L100.0600 #### [facility] [address] [place], [place], [address] IRON+IRON BINDING Collected: 01/19/2018 Status: F Source: [facility] 10:20 AM [facility] REPOSITORY TYPE CODE TESTS RESULT OUT OF RANGE REFERENCE UNITS LAB L503.6075 250-450 ug/dL Low TIBC 195 LAB L503.6150 50-170 ug/dL IRON Normal 53 LAB L503.6250 15.0-55.0 % IRON Normal SATURATION 27.2 Performed By: #### L503.6030, L503.6550 #### [facility] [address] [place], [address] FERRITIN Collected: 01/19/2018 Status: F Source: [facility] 10:20 AM [facility] REPOSITORY TYPE CODE TESTS RESULT OUT OF RANGE REFERENCE UNITS LAB L503.6550 8-252 ng/mL Normal FERRITIN 251 Performed By: #### L503.6030, L503.6550 #### [facility] [address] [place], [place], [address] HH, HEMOGLOBIN AND Collected: 01/05/2018 Status: F Source: [facility] 10:32 AM [facility] REPOSITORY TYPE CODE TESTS RESULT OUT OF RANGE REFERENCE UNITS LAB L100.1300 12.0-15.0 g/dl Low HGB 9.8 LAB L100.1400 37-47 % Low HCT 31.6 Performed By: #### L100.0600 #### [facility] [address] [place], [address] RENAL PROFILE Collected: 01/05/2018 Status: F Source: [facility] 10:32 AM [facility] REPOSITORY TYPE CODE TESTS RESULT OUT OF RANGE REFERENCE UNITS LAB L501.0100 74-106 mg/dL Normal GLU 85 Result Comment: Please note revised GLUCOSE reference range effective 2017. LAB L501.1000 7-18 mg/dL High BUN 33 LAB L501.1100 0.55-1.02 mg/dL High CREAT,SERUM 1.45 Result Comment: The validity of the calculated GFR AND GFRAA in patients over 70 years has not been determined. Clinical correlation is essential. LAB L501.1110 >60 mL/min Low EST GFR 37 Result Comment: Non- GFR Calc LAB L501.1115 >60 mL/min Low EST GFR - AA 45 Result Comment: GFR Calc LAB L501.1300 10-20 RATIO High BUN/CRE 22.8 LAB L501.1800 3.2-5.0 g/dL Normal ALB 3.3 LAB L501.2200 8.5-10.1 mg/dL High CA 10.3 LAB L501.2300 2.5-4.9 mg/dL Normal PHOS 3.2 LAB L501.5300 136-145 mmol/L NA Normal 140 LAB L501.5600 3.5-5.1 mmol/L K Normal 4.1 LAB L501.5900 98-107 mmol/L CL Normal 105 LAB L501.6100 21.0-32.0 mmol/L Normal CO2 26.0 Performed By: #### L500.3600 #### [facility] [address] [place], [address] HH, HEMOGLOBIN AND Collected: 12/22/2017 Status: F Source: [facility] 10:29 AM [facility] REPOSITORY TYPE CODE TESTS RESULT OUT OF RANGE REFERENCE UNITS LAB L100.1300 12.0-15.0 g/dl Low HGB 9.7 LAB L100.1400 37-47 % Low HCT 30.9 Performed By: #### L100.0600 #### [facility] [address] [place], [address] PROT ELECTRO Collected: 12/17/2017 Status: F Source: [facility] 11:17 AM [facility] REPOSITORY TYPE CODE TESTS RESULT OUT OF REFERENCE UNITS RANGE LAB L750.39046 6.0-8.5 g/dL TOTAL PROTEIN Normal 6.5 LAB L750.19128 2.9-4.4 g/dL ALBUMIN Normal 3.4 LAB L750.27723 2.2-3.9 g/dL GLOBULIN,TOTAL Normal 3.1 LAB L750.81685 0.0-0.4 g/dL A-1 GLOBULIN Normal 0.3 LAB L750.49007 0.4-1.0 g/dL A-2 GLOBULIN Normal 0.7 LAB L750.51305 0.7-1.3 g/dL BETA GLOBULIN Normal 0.9 LAB L750.70608 0.4-1.8 g/dL GAMMA GLOBULIN Normal 1.3 LAB L750.48345 0.7-1.7 ALB/GLOB RATIO Normal 1.1 LAB L750.13271 Not Observed g/dL M-SPIKE High 0.4 LAB L750.06778 () INTERPRETATION Normal Result Comment: The SPE pattern demonstrates a single peak (M-spike) in the gamma region which may represent monoclonal protein. This peak may also be caused by circulating immune complexes, cryoglobulins, C-reactive protein, fibrinogen or hemolysis. If clinically indicated, the presence of a monoclonal gammopathy may be confirmed by immuno-fixation, as well as an evaluation of the urine for the presence of Bence-Ledezma protein. Performed At: [facility] [id number] Sugey Bach PhD [id number] LAB L750.16015 () Normal NOTE: Result Comment: Protein electrophoresis scan will follow via computer, mail, or metal machine setter delivery. Performed By: #### L750.74322 #### [facility] [address] # [phone] HH, HEMOGLOBIN AND Collected: 12/08/2017 Status: F Source: [facility] 10:33 AM [facility] REPOSITORY TYPE CODE TESTS RESULT OUT OF RANGE REFERENCE UNITS LAB L100.1300 12.0-15.0 g/dl Low HGB 9.6 LAB L100.1400 37-47 % Low HCT 30.4 Performed By: #### L100.0600 #### [facility] [address] [place], [place], [address] RENAL PROFILE Collected: 12/08/2017 Status: F Source: [facility] 10:33 AM [facility] REPOSITORY TYPE CODE TESTS RESULT OUT OF RANGE REFERENCE UNITS LAB L501.0100 74-106 mg/dL Normal GLU 83 Result Comment: Please note revised GLUCOSE reference range effective 2017. LAB L501.1000 7-18 mg/dL High BUN 38 LAB L501.1100 0.55-1.02 mg/dL High CREAT,SERUM 1.48 Result Comment: The validity of the calculated GFR AND GFRAA in patients over 70 years has not been determined. Clinical correlation is essential. LAB L501.1110 >60 mL/min Low EST GFR 36 Result Comment: Non- GFR Calc LAB L501.1115 >60 mL/min Low EST GFR - AA 44 Result Comment: GFR Calc LAB L501.1255 ml/min Normal Estimated CRCL 29.10 LAB L501.1300 10-20 RATIO High BUN/CRE 25.7 LAB L501.1800 3.2-5. g/dL Normal 0 ALB 3.2 LAB L501.2200 8.5-10 mg/dL Normal .1 CA 9.8 LAB L501.2300 2.5-4. mg/dL Normal 9 PHOS 3.3 LAB L501.5300 136-14 mmol/L Normal 5 NA 139 LAB L501.5600 3.5-5. mmol/L Normal 1 K 3.8 LAB L501.5900 98-107 mmol/L Normal CL 106 LAB L501.6100 21.0-3 mmol/L Normal 2.0 CO2 27.0 Performed By: #### L500.3600 #### [facility] [address] [place], [address] HH, HEMOGLOBIN AND Collected: 11/24/2017 Status: F Source: [facility] 10:13 AM [facility] REPOSITORY TYPE CODE TESTS RESULT OUT OF RANGE REFERENCE UNITS LAB L100.1300 12.0-15.0 g/dl Low HGB 10.1 LAB L100.1400 37-47 % Low HCT 31.7 Performed By: #### L100.0600 #### [facility] [address] [facility] [place], [address] HH, HEMOGLOBIN AND Collected: 11/10/2017 Status: F Source: [facility] 10:32 AM [facility] REPOSITORY TYPE CODE TESTS RESULT OUT OF RANGE REFERENCE UNITS LAB L100.1300 12.0-15.0 g/dl Low HGB 9.8 LAB L100.1400 37-47 % Low HCT 31.2 Performed By: #### L100.0600 #### [facility] [address] [facility] [place], [place], [address] RENAL PROFILE Collected: 11/10/2017 Status: F Source: [facility] 10:32 AM [facility] REPOSITORY TYPE CODE TESTS RESULT OUT OF RANGE REFERENCE UNITS LAB L501.0100 74-106 mg/dL High GLU 114 Result Comment: Fasting Glucose result from 100 to 125 mg/dL suggests IMPAIRED HOMEOSTASIS per A.D.A. criteria. Please note revised GLUCOSE reference range effective 2017. LAB L501.1000 7-18 mg/dL High BUN 41 LAB L501.1100 0.55-1.02 mg/dL High CREAT,SERUM 1.51 Result Comment: The validity of the calculated GFR AND GFRAA in patients over 70 years has not been determined. Clinical correlation is essential. LAB L501.1110 >60 mL/min Low EST GFR 36 Result Comment: Non- GFR Calc LAB L501.1115 >60 mL/min Low EST GFR - AA 43 Result Comment: GFR Calc LAB L501.1300 10-20 RATIO High BUN/CRE 27.2 LAB L501.1800 3.2-5.0 g/dL Normal ALB 3.3 LAB L501.2200 8.5-10.1 mg/dL High CA 10.3 LAB L501.2300 2.5-4.9 mg/dL Normal PHOS 3.2 LAB L501.5300 136-145 mmol/L NA Normal 138 LAB L501.5600 3.5-5.1 mmol/L K Normal 4.0 LAB L501.5900 98-107 mmol/L CL Normal 102 LAB L501.6100 21.0-32.0 mmol/L Normal CO2 28.0 Performed By: #### L500.3600, L503.6030, L503.6550 #### [facility] [address] [place], [place], [id number] IRON+IRON BINDING Collected: 11/10/2017 Status: F Source: [facility] 10:32 AM [facility] REPOSITORY TYPE CODE TESTS RESULT OUT OF REFERENCE UNITS RANGE LAB L503.6075 250-450 ug/dL Low TIBC 171 LAB L503.6150 50-170 ug/dL Low IRON 24 LAB L503.6250 15.0-55.0 % Low IRON SATURATION 14.0 Performed By: #### L500.3600, L503.6030, L503.6550 #### [facility] [address] [place], [place], [id number] FERRITIN Collected: 11/10/2017 Status: F Source: [facility] 10:32 AM [facility] REPOSITORY TYPE CODE TESTS RESULT OUT OF RANGE REFERENCE UNITS LAB L503.6550 8-252 ng/mL Normal FERRITIN 252 Performed By: #### L500.3600, L503.6030, L503.6550 #### [facility] [address] [place], [address] RENAL PROFILE Collected: 10/27/2017 Status: F Source: [facility] 10:26 AM [facility] REPOSITORY TYPE CODE TESTS RESULT OUT OF RANGE REFERENCE UNITS LAB L501.0100 74-106 mg/dL Normal GLU 83 Result Comment: Please note revised GLUCOSE reference range effective 2017. LAB L501.1000 7-18 mg/dL High BUN 55 LAB L501.1100 0.55-1.02 mg/dL High CREAT,SERUM 1.66 Result Comment: The validity of the calculated GFR AND GFRAA in patients over 70 years has not been determined. Clinical correlation is essential. LAB L501.1110 >60 mL/min Low EST GFR 32 Result Comment: Non- GFR Calc LAB L501.1115 >60 mL/min Low EST GFR - AA 39 Result Comment: GFR Calc LAB L501.1300 10-20 RATIO High BUN/CRE 33.1 LAB L501.1800 3.2-5.0 g/dL Normal ALB 3.4 LAB L501.2200 8.5-10.1 mg/dL High CA 10.2 LAB L501.2300 2.5-4.9 mg/dL Normal PHOS 3.6 LAB L501.5300 136-145 mmol/L NA Normal 140 LAB L501.5600 3.5-5.1 mmol/L K Normal 4.5 LAB L501.5900 98-107 mmol/L CL Normal 106 LAB L501.6100 21.0-32.0 mmol/L Normal CO2 24.0 Performed By: #### L500.3600 #### [facility] [address] [facility]. [place], [place], [address] PROTEIN+CREATININE Collected: Status: F Source: [facility] RATIO,URINE 10/27/2017 10:26 AM [facility] REPOSITORY TYPE CODE TESTS RESULT OUT OF RANGE REFERENCE UNITS LAB L501.1200 NO RANGE EST. mg/dL 48.40 Normal UR CREAT LAB L501.1930 <11.9 mg/dL < 6.0 Normal PROTEIN,UR. RAN. LAB L501.1940 0-200 mg/g CRE Test Normal not performed PROT:CRE RATIO Performed By: #### L501.0900 #### [facility] [address] [facility] [place], [place], [address] VITAMIN D,25 HYDROXY Collected: 10/27/2017 Status: F Source: [facility] 10:26 AM [facility] REPOSITORY TYPE CODE TESTS RESULT OUT OF REFERENCE UNITS RANGE LAB L506.1000 29.95-100.01 ng/mL Low Vitamin D 28.4 25-OH Result Comment: Vitamin D 25(OH) Status Range Deficiency <20 ng/mL (50nmol/L) Insuffciency 20 - 30 ng/mL (50 - 75 nmol/L) Sufficiency 30 - 100 ng/mL (75 - 250 nmol/L) Toxicity >100 ng/mL (>250 nmol/L) Performed By: #### L506.1000 #### [facility] [address] [facility] [place], [address] CBC-COMPLETE BLOOD CNT Collected: 10/27/2017 Status: F Source: [facility] NO DIFF 10:21 AM [facility] REPOSITORY TYPE CODE TESTS RESULT OUT OF RANGE REFERENCE UNITS LAB L100.1000 4.4-11.0 K/mm3 Normal WBC 5.2 LAB L100.1200 4.2-5.4 M/mm3 Low RBC 3.38 LAB L100.1300 12.0-15.0 g/dl Low HGB 10.0 LAB L100.1400 37-47 % Low HCT 32.7 LAB L100.1500 81-99 fL Normal MCV 96.7 LAB L100.1600 27.0-32.0 pg Normal MCH 29.6 LAB L100.1700 32-36 g/gl Low MCHC 30.6 LAB L100.1810 11.6-14.6 % High RDW CV 17.1 LAB L100.1820 35.1-43.9 fl High RDW SD 60.5 LAB L100.1900 150-450 K/mm3 Normal PLT 166 LAB L100.2000 6.2-12.0 fl Normal MPV 10.7 Performed By: #### L100.0500 #### [facility] [address] [facility] [place], [place], [address] HH, HEMOGLOBIN AND Collected: 10/13/2017 Status: F Source: [facility] 10:45 AM [facility] REPOSITORY TYPE CODE TESTS RESULT OUT OF RANGE REFERENCE UNITS LAB L100.1300 12.0-15.0 g/dl Low HGB 10.0 LAB L100.1400 37-47 % Low HCT 32.1 Performed By: #### L100.0600 #### [facility] [address] [place], [address] RENAL PROFILE Collected: 10/13/2017 Status: F Source: [facility] 10:45 AM [facility] REPOSITORY TYPE CODE TESTS RESULT OUT OF RANGE REFERENCE UNITS LAB L501.0100 74-106 mg/dL Normal GLU 81 Result Comment: Please note revised GLUCOSE reference range effective 2017. LAB L501.1000 7-18 mg/dL High BUN 57 LAB L501.1100 0.55-1.02 mg/dL High CREAT,SERUM 1.81 Result Comment: The validity of the calculated GFR AND GFRAA in patients over 70 years has not been determined. Clinical correlation is essential. LAB L501.1110 >60 mL/min Low EST GFR 29 Result Comment: Non- GFR Calc LAB L501.1115 >60 mL/min Low EST GFR - AA 35 Result Comment: GFR Calc LAB L501.1300 10-20 RATIO High BUN/CRE 31.5 LAB L501.1800 3.2-5.0 g/dL Normal ALB 3.3 LAB L501.2200 8.5-10.1 mg/dL CA Normal 10.0 LAB L501.2300 2.5-4.9 mg/dL Normal PHOS 3.5 LAB L501.5300 136-145 mmol/L NA Normal 142 LAB L501.5600 3.5-5.1 mmol/L K Normal 4.2 LAB L501.5900 98-107 mmol/L High CL 109 LAB L501.6100 21.0-32.0 mmol/L Normal CO2 25.0 Performed By: #### L500.3600 #### [facility] [address] [place], [address] HH, HEMOGLOBIN AND Collected: 09/29/2017 Status: F Source: [facility] 10:32 AM [facility] REPOSITORY TYPE CODE TESTS RESULT OUT OF RANGE REFERENCE UNITS LAB L100.1300 12.0-15.0 g/dl Low HGB 9.7 LAB L100.1400 37-47 % Low HCT 30.3 Performed By: #### L100.0600 #### [facility] [address] [place], [address] HH, HEMOGLOBIN AND Collected: 09/15/2017 Status: F Source: [facility] 10:37 AM [facility] REPOSITORY TYPE CODE TESTS RESULT OUT OF RANGE REFERENCE UNITS LAB L100.1300 12.0-15.0 g/dl Low HGB 9.8 LAB L100.1400 37-47 % Low HCT 31.3 Performed By: #### L100.0600 #### [facility] [address] [place], [address] RENAL PROFILE Collected: 09/15/2017 Status: F Source: [facility] 10:37 AM [facility] REPOSITORY TYPE CODE TESTS RESULT OUT OF RANGE REFERENCE UNITS LAB L501.0100 74-106 mg/dL Normal GLU 91 Result Comment: Please note revised GLUCOSE reference range effective 2017. LAB L501.1000 7-18 mg/dL High BUN 44 LAB L501.1100 0.55-1.02 mg/dL High CREAT,SERUM 1.79 Result Comment: The validity of the calculated GFR AND GFRAA in patients over 70 years has not been determined. Clinical correlation is essential. LAB L501.1110 >60 mL/min Low EST GFR 29 Result Comment: Non- GFR Calc LAB L501.1115 >60 mL/min Low EST GFR - AA 35 Result Comment: GFR Calc LAB L501.1300 10-20 RATIO High BUN/CRE 24.6 LAB L501.1800 3.2-5.0 g/dL Normal ALB 3.3 LAB L501.2200 8.5-10.1 mg/dL CA Normal 10.0 LAB L501.2300 2.5-4.9 mg/dL Normal PHOS 3.2 LAB L501.5300 136-145 mmol/L NA Normal 140 LAB L501.5600 3.5-5.1 mmol/L K Normal 4.3 LAB L501.5900 98-107 mmol/L CL Normal 104 LAB L501.6100 21.0-32.0 mmol/L Normal CO2 27.0 Performed By: #### L500.3600 #### [facility] [address] [place], [address] HH, HEMOGLOBIN AND Collected: 09/01/2017 Status: F Source: [facility] 10:46 AM [facility] REPOSITORY TYPE CODE TESTS RESULT OUT OF RANGE REFERENCE UNITS LAB L100.1300 12.0-15.0 g/dl Low HGB 9.9 LAB L100.1400 37-47 % Low HCT 30.6 Performed By: #### L100.0600 #### [facility] [address] [place], [place], [address] HH, HEMOGLOBIN AND Collected: 08/19/2017 Status: F Source: [facility] 10:39 AM [facility] REPOSITORY TYPE CODE TESTS RESULT OUT OF RANGE REFERENCE UNITS LAB L100.1300 12.0-15.0 g/dl Low HGB 9.6 LAB L100.1400 37-47 % Low HCT 29.9 Performed By: #### L100.0600 #### [facility] [address] [place], [place], [address] RENAL PROFILE Collected: 08/19/2017 Status: F Source: [facility] 10:39 AM [facility] REPOSITORY TYPE CODE TESTS RESULT OUT OF RANGE REFERENCE UNITS LAB L501.0100 74-106 mg/dL Normal GLU 81 Result Comment: Please note revised GLUCOSE reference range effective 2017. LAB L501.1000 7-18 mg/dL High BUN 58 LAB L501.1100 0.55-1.02 mg/dL High CREAT,SERUM 1.75 Result Comment: The validity of the calculated GFR AND GFRAA in patients over 70 years has not been determined. Clinical correlation is essential. LAB L501.1110 >60 mL/min Low EST GFR 30 Result Comment: Non- GFR Calc LAB L501.1115 >60 mL/min Low EST GFR - AA 36 Result Comment: GFR Calc LAB L501.1300 10-20 RATIO High BUN/CRE 33.1 LAB L501.1800 3.2-5.0 g/dL Normal ALB 3.4 LAB L501.2200 8.5-10.1 mg/dL CA Normal 9.9 LAB L501.2300 2.5-4.9 mg/dL Normal PHOS 3.2 LAB L501.5300 136-145 mmol/L NA Normal 140 LAB L501.5600 3.5-5.1 mmol/L K Normal 4.0 LAB L501.5900 98-107 mmol/L CL Normal 107 LAB L501.6100 21.0-32.0 mmol/L Normal CO2 28.0 Performed By: #### L500.3600 #### [facility] [address] [place], [address] DOWNTIME REPORT Observed: 08/05/2017 Status: F Source: [facility] 1:54 PM [facility] REPOSITORY [facility] Medical Records Department [address] [place] [address] Downtime Report MR#: [id number] Acct: [id number] Name: MAGGI KWAN Rep #: [id number] : 1940 77 From: Chad Dunham PCP: Aishwarya Reyes MD Status: REG CLI This patient was seen during an EMR downtime July 19, 2017 - July 26, 2017. This patient may have a combination of paper and electronic documentation or all paper documentation. All documentation is viewable within the e-chart portion of [employer] for each patient visit. HH, HEMOGLOBIN AND Collected: 08/04/2017 Status: F Source: [facility] 10:34 AM [facility] REPOSITORY TYPE CODE TESTS RESULT OUT OF RANGE REFERENCE UNITS LAB L100.1300 12.0-15.0 g/dl Low HGB 9.6 LAB L100.1400 37-47 % Low HCT 30.4 Performed By: #### L100.0600 #### [facility] [address] [facility] [place], [address] HH, HEMOGLOBIN AND Collected: 07/21/2017 Status: F Source: [facility] 10:40 AM [facility] REPOSITORY Order Comment: RESULT(S) PREVIOUSLY REPORTED ON MANUAL REQUISITION DURING DOWNTIME. TYPE CODE TESTS RESULT OUT OF RANGE REFERENCE UNITS LAB L100.1300 12.0-15.0 g/dl Low HGB 9.9 LAB L100.1400 37-47 % Low HCT 31.0 Performed By: #### L100.0600 #### [facility] [address] [facility] [place], [address] RENAL PROFILE Collected: 07/21/2017 Status: F Source: [facility] 10:40 AM [facility] REPOSITORY Order Comment: IRON WAS MISSED BEING RUN DURING THE DOWNTIME. RESULT(S) PREVIOUSLY REPORTED ON MANUAL REQUISITION DURING DOWNTIME. TYPE CODE TESTS RESULT OUT OF RANGE REFERENCE UNITS LAB L501.0100 74-106 mg/dL Low GLU 71 Result Comment: Please note revised GLUCOSE reference range effective 2017. LAB L501.1000 7-18 mg/dL High BUN 49 LAB L501.1100 0.55-1.02 mg/dL High CREAT,SERUM 1.57 Result Comment: The validity of the calculated GFR AND GFRAA in patients over 70 years has not been determined. Clinical correlation is essential. LAB L501.1110 >60 mL/min Low EST GFR 34 LAB L501.1115 >60 mL/min Low EST GFR - AA 41 LAB L501.1300 10-20 RATIO High BUN/CRE 31.2 LAB L501.1800 3.2-5.0 g/dL Normal ALB 3.5 LAB L501.2200 8.5-10.1 mg/dL High CA 10.2 LAB L501.2300 2.5-4.9 mg/dL Normal PHOS 3.5 LAB L501.5300 136-145 mmol/L Normal NA 141 LAB L501.5600 3.5-5.1 mmol/L Normal K 4.5 LAB L501.5900 98-107 mmol/L Normal CL 106 LAB L501.6100 21.0-32.0 mmol/L Normal CO2 29.0 Performed By: #### L500.3600, L503.6030, L503.6550 #### [facility] [address] [place], [address] IRON+IRON BINDING Collected: 07/21/2017 Status: F Source: [facility] 10:40 AM [facility] REPOSITORY Order Comment: IRON WAS MISSED BEING RUN DURING THE DOWNTIME. RESULT(S) PREVIOUSLY REPORTED ON MANUAL REQUISITION DURING DOWNTIME. TYPE CODE TESTS RESULT OUT OF REFERENCE UNITS RANGE LAB L503.6075 250-450 ug/dL Low TIBC 209 LAB L503.6150 50-170 ug/dL IRON Normal Test not performed LAB L503.6250 15.0-55.0 % IRON Normal SATURATION Test not performed Performed By: #### L500.3600, L503.6030, L503.6550 #### [facility] [address] [place], [address] FERRITIN Collected: 07/21/2017 Status: F Source: [facility] 10:40 AM [facility] REPOSITORY Order Comment: IRON WAS MISSED BEING RUN DURING THE DOWNTIME. RESULT(S) PREVIOUSLY REPORTED ON MANUAL REQUISITION DURING DOWNTIME. TYPE CODE TESTS RESULT OUT OF RANGE REFERENCE UNITS LAB L503.6550 8-252 ng/mL Normal FERRITIN 246 Performed By: #### L500.3600, L503.6030, L503.6550 #### [facility] [address] [place], [address] HH, HEMOGLOBIN AND Collected: 07/07/2017 Status: F Source: [facility] 10:38 AM [facility] REPOSITORY TYPE CODE TESTS RESULT OUT OF RANGE REFERENCE UNITS LAB L100.1300 12.0-15.0 g/dl Low HGB 10.1 LAB L100.1400 37-47 % Low HCT 31.9 Performed By: #### L100.0600 #### [facility] [address] [place], [address] HH, HEMOGLOBIN AND Collected: 06/23/2017 Status: F Source: [facility] 10:45 AM [facility] REPOSITORY Order Comment: Has pt arrived? Y TYPE CODE TESTS RESULT OUT OF RANGE REFERENCE UNITS LAB L100.1300 12.0-15.0 g/dl Low HGB 9.9 LAB L100.1400 37-47 % Low HCT 31.4 Performed By: #### L100.0600 #### [facility] [address] [place], [address] RENAL PROFILE Collected: 06/23/2017 Status: F Source: [facility] 10:45 AM [facility] REPOSITORY Order Comment: Has pt arrived? Y TYPE CODE TESTS RESULT OUT OF RANGE REFERENCE UNITS LAB L501.0100 74-106 mg/dL Normal GLU 99 Result Comment: Please note revised GLUCOSE reference range effective 2017. LAB L501.1000 7-18 mg/dL High BUN 43 LAB L501.1100 0.55-1.02 mg/dL High CREAT,SERUM 1.53 Result Comment: The validity of the calculated GFR AND GFRAA in patients over 70 years has not been determined. Clinical correlation is essential. LAB L501.1110 >60 mL/min Low EST GFR 35 Result Comment: Non- GFR Calc LAB L501.1115 >60 mL/min Low EST GFR - AA 42 Result Comment: GFR Calc LAB L501.1255 ml/min Normal Estimated CRCL 28.15 LAB L501.1300 10-20 RATIO High BUN/CRE 28.1 LAB L501.1800 3.2-5. g/dL Normal 0 ALB 3.5 LAB L501.2200 8.5-10 mg/dL Normal .1 CA 10.1 LAB L501.2300 2.5-4. mg/dL Normal 9 PHOS 3.1 LAB L501.5300 136-14 mmol/L Normal 5 NA 139 LAB L501.5600 3.5-5. mmol/L Normal 1 K 3.8 LAB L501.5900 98-107 mmol/L Normal CL 105 LAB L501.6100 21.0-3 mmol/L Normal 2.0 CO2 28.0 Performed By: #### L500.3600 #### [facility] [address] [place], [address] PROT ELECTRO Collected: 06/21/2017 Status: F Source: [facility] 11:10 AM [facility] REPOSITORY TYPE CODE TESTS RESULT OUT OF REFERENCE UNITS RANGE LAB L750.58381 6.0-8.5 g/dL TOTAL PROTEIN Normal 7.1 LAB L750.13074 2.9-4.4 g/dL ALBUMIN Normal 3.7 LAB L750.99870 2.2-3.9 g/dL GLOBULIN,TOTAL Normal 3.4 LAB L750.85697 0.0-0.4 g/dL A-1 GLOBULIN Normal 0.3 LAB L750.76418 0.4-1.0 g/dL A-2 GLOBULIN Normal 0.7 LAB L750.42813 0.7-1.3 g/dL BETA GLOBULIN Normal 1.0 LAB L750.20199 0.4-1.8 g/dL GAMMA GLOBULIN Normal 1.4 LAB L750.47046 0.7-1.7 ALB/GLOB RATIO Normal 1.1 LAB L750.85381 Not Observed g/dL M-SPIKE High 0.5 LAB L750.38811 () INTERPRETATION Normal Result Comment: The SPE pattern demonstrates a single peak (M-spike) in the gamma region which may represent monoclonal protein. This peak may also be caused by circulating immune complexes, cryoglobulins, C-reactive protein, fibrinogen or hemolysis. If clinically indicated, the presence of a monoclonal gammopathy may be confirmed by immuno-fixation, as well as an evaluation of the urine for the presence of Bence-Ledezma protein. Performed At: [facility] [id number] Sugey Bach PhD [id number] LAB L750.29936 () Normal NOTE: Result Comment: Protein electrophoresis scan will follow via computer, mail, or metal machine setter delivery. Performed By: #### L750.85433 #### [facility] [address] # [phone] HH, HEMOGLOBIN AND Collected: 06/09/2017 Status: F Source: [facility] 10:44 AM [facility] REPOSITORY TYPE CODE TESTS RESULT OUT OF RANGE REFERENCE UNITS LAB L100.1300 12.0-15.0 g/dl Low HGB 9.9 LAB L100.1400 37-47 % Low HCT 30.9 Performed By: #### L100.0600 #### [facility] [address] [place], [place], [address] HH, HEMOGLOBIN AND Collected: 05/26/2017 Status: F Source: [facility] 10:30 AM [facility] REPOSITORY TYPE CODE TESTS RESULT OUT OF RANGE REFERENCE UNITS LAB L100.1300 12.0-15.0 g/dl Low HGB 10.0 LAB L100.1400 37-47 % Low HCT 32.1 Performed By: #### L100.0600 #### [facility] [address] [place], [place], [address] RENAL PROFILE Collected: 05/26/2017 Status: F Source: [facility] 10:30 AM [facility] REPOSITORY TYPE CODE TESTS RESULT OUT OF RANGE REFERENCE UNITS LAB L501.0100 74-106 mg/dL Normal GLU 80 Result Comment: Please note revised GLUCOSE reference range effective 2017. LAB L501.1000 7-18 mg/dL High BUN 38 LAB L501.1100 0.55-1.02 mg/dL High CREAT,SERUM 1.72 Result Comment: The validity of the calculated GFR AND GFRAA in patients over 70 years has not been determined. Clinical correlation is essential. LAB L501.1110 >60 mL/min Low EST GFR 31 Result Comment: Non- GFR Calc LAB L501.1115 >60 mL/min Low EST GFR - AA 37 Result Comment: GFR Calc LAB L501.1255 ml/min Normal Estimated CRCL 25.04 LAB L501.1300 10-20 RATIO High BUN/CRE 22.1 LAB L501.1800 3.2-5. g/dL Normal 0 ALB 3.5 LAB L501.2200 8.5-10 mg/dL Normal .1 CA 9.7 LAB L501.2300 2.5-4. mg/dL Low 9 PHOS 2.3 LAB L501.5300 136-14 mmol/L Normal 5 NA 142 LAB L501.5600 3.5-5. mmol/L Normal 1 K 3.8 LAB L501.5900 98-107 mmol/L High CL 108 LAB L501.6100 21.0-3 mmol/L Normal 2.0 CO2 26.0 Performed By: #### L500.3600 #### [facility] [address] [place], [address] HH, HEMOGLOBIN AND Collected: 05/12/2017 Status: F Source: [facility] 10:44 AM [facility] REPOSITORY TYPE CODE TESTS RESULT OUT OF RANGE REFERENCE UNITS LAB L100.1300 12.0-15.0 g/dl Low HGB 9.7 LAB L100.1400 37-47 % Low HCT 31.1 Performed By: #### L100.0600 #### [facility] [address] [place], [address] HH, HEMOGLOBIN AND Collected: 04/28/2017 Status: F Source: [facility] 10:46 AM [facility] REPOSITORY TYPE CODE TESTS RESULT OUT OF RANGE REFERENCE UNITS LAB L100.1300 12.0-15.0 g/dl Low HGB 9.8 LAB L100.1400 37-47 % Low HCT 31.5 Performed By: #### L100.0600 #### [facility] [address] [place], [place], [address] RENAL PROFILE Collected: 04/28/2017 Status: F Source: [facility] 10:46 AM [facility] REPOSITORY TYPE CODE TESTS RESULT OUT OF RANGE REFERENCE UNITS LAB L501.0100 74-106 mg/dL Normal GLU 91 Result Comment: Please note revised GLUCOSE reference range effective 2017. LAB L501.1000 7-18 mg/dL High BUN 38 LAB L501.1100 0.55-1.02 mg/dL High CREAT,SERUM 1.61 Result Comment: The validity of the calculated GFR AND GFRAA in patients over 70 years has not been determined. Clinical correlation is essential. LAB L501.1110 >60 mL/min Low EST GFR 33 Result Comment: Non- GFR Calc LAB L501.1115 >60 mL/min Low EST GFR - AA 40 Result Comment: GFR Calc LAB L501.1255 ml/min Normal Estimated CRCL 26.75 LAB L501.1300 10-20 RATIO High BUN/CRE 23.6 LAB L501.1800 3.2-5. g/dL Normal 0 ALB 3.5 LAB L501.2200 8.5-10 mg/dL Normal .1 CA 9.8 LAB L501.2300 2.5-4. mg/dL Normal 9 PHOS 2.8 LAB L501.5300 136-14 mmol/L Normal 5 NA 140 LAB L501.5600 3.5-5. mmol/L Normal 1 K 4.2 LAB L501.5900 98-107 mmol/L Normal CL 106 LAB L501.6100 21.0-3 mmol/L Normal 2.0 CO2 27.0 Performed By: #### L500.3600, L503.6030, L503.6550 #### [facility] [address] [place], [address] IRON+IRON BINDING Collected: 04/28/2017 Status: F Source: [facility] 10:46 AM [facility] REPOSITORY TYPE CODE TESTS RESULT OUT OF RANGE REFERENCE UNITS LAB L503.6075 250-450 ug/dL Low TIBC 214 LAB L503.6150 50-170 ug/dL IRON Normal 51 LAB L503.6250 15.0-55.0 % IRON Normal SATURATION 23.8 Performed By: #### L500.3600, L503.6030, L503.6550 #### [facility] [address] [place], [address] FERRITIN Collected: 04/28/2017 Status: F Source: NELLIE 10:46 AM [facility] REPOSITORY TYPE CODE TESTS RESULT OUT OF RANGE REFERENCE UNITS LAB L503.6550 8-252 ng/mL Normal FERRITIN 240 Performed By: #### L500.3600, L503.6030, L503.6550 #### [facility] [address] [place], [address] .GFR Collected: 04/27/2017 Status: F Source: [place] [employer] 12:19 PM [facility] REPOSITORY TYPE CODE TESTS RESULT OUT OF REFERENCE UNITS RANGE LAB GFRAA(LOINC ml/min/1.73 ) sqm GFR 42 [place] Result Comment: GFR Population mean for , Non- Americans Ages 20-29 = 116 mL/min/1.73 sq.m. Ages 30-39 = 107 mL/min/1.73 sq.m. Ages 40-49 = 99 mL/min/1.73 sq.m. Ages 50-59 = 93 mL/min/1.73 sq.m. Ages 60-69 = 85 mL/min/1.73 sq.m. Ages 70+ = 75 mL/min/1.73 sq.m. Chronic Kidney Disease: Less than 60 mL/min/1.73 square meters End Stage Renal Disease: Less than 15 mL/min/1.73 square meters LAB GFRNO(LOINC) ml/min/1.73sqm GFR Non- 35 Result Comment: GFR Population mean for , Non- Americans Ages 20-29 = 116 mL/min/1.73 sq.m. Ages 30-39 = 107 mL/min/1.73 sq.m. Ages 40-49 = 99 mL/min/1.73 sq.m. Ages 50-59 = 93 mL/min/1.73 sq.m. Ages 60-69 = 85 mL/min/1.73 sq.m. Ages 70+ = 75 mL/min/1.73 sq.m. Chronic Kidney Disease: Less than 60 mL/min/1.73 square meters End Stage Renal Disease: Less than 15 mL/min/1.73 square meters Performed By: #### GFR, RFP #### Alyson [address] [address] #### PTH, VIDH #### [address] [address] RFP Collected: 04/27/2017 Status: F Source: [facility] 12:19 [facility] REPOSITORY TYPE CODE TESTS RESULT OUT OF REFERENCE UNITS RANGE LAB 1547-9 83-110 mg/dL GLUCOSE 96 LAB NA(LOINC) 136-146 mEq/L Sodium Level 139 LAB K(LOINC) 3.5-5.1 mEq/L Potassium Level 4.5 LAB CL(LOINC) 98-107 mEq/L Chloride 104 LAB CO2(LOINC) 23-31 mEq/L CO2 28 LAB EBAL(LOINC mEq/L ) Electrolyte Balance 7.0 LAB BUN(LOINC) 7.0-18.0 mg/dL BUN High 30.6 LAB CRE(LOINC) 0.6-1.2 mg/dL Creatinine High Lvl (s) 1.5 LAB BC(LOINC) 7-27 ratio BUN/Creatinine 20 Ratio LAB CA(LOINC) 8.4-10.2 mg/dL Calcium Lvl High 10.5 LAB PHOS(LOINC 2.3-4.1 mg/dL ) Phosphorus 3.2 LAB ALB(LOINC) 3.4-4.8 G/dL Albumin Level 4.1 Performed By: #### GFR, RFP #### Alyson [address] [address] #### PTH, VIDH #### [address] [address] PTH Collected: 04/27/2017 Status: F Source: [facility] 12:19 [facility] REPOSITORY TYPE CODE TESTS RESULT OUT OF REFERENCE UNITS RANGE LAB PTH(LOINC) 18.5-88.0 pg/mL PTH, Intact 45.2 Performed By: #### GFR, RFP #### [address] [address] #### PTH, VIDH #### [place] [address] VIDH Collected: 04/27/2017 Status: F Source: [facility] 12:19 [facility] REPOSITORY TYPE CODE TESTS RESULT OUT OF RANGE REFERENCE UNITS LAB VIDH(LOINC) ng/mL Vit. D 34 25-Hydroxy Result Comment: Interpretive Values Based on Total 25(OH)D: Severe Deficiency <20 ng/mL Mild to Moderate Deficiency 20-30 ng/mL Optimum Levels 30-100 ng/mL Toxicity Possible >100 ng/mL Performed By: #### GFR, RFP #### [address] [address] #### PTH, VIDH #### [place] [address] MALBR Collected: 04/27/2017 Status: F Source: [facility] 12:19 [facility] REPOSITORY TYPE CODE TESTS RESULT OUT OF REFERENCE UNITS RANGE LAB CRU(LOINC) mg/dL U Creatinine 103.0 LAB MRUR(LOINC mcg/dL ) U Microalb 905 LAB RMAL(LOINC 0.0-24.9 mcg/mg ) U Ratio Alb/Cre 8.8 Performed By: #### MALBR #### [place] [address] CBC Collected: 04/27/2017 Status: F Source: [facility] 12:18 [facility] REPOSITORY TYPE CODE TESTS RESULT OUT OF REFERENCE UNITS RANGE LAB WBC(LOINC) 4.60-10.80 10 3/mcL WBC 6.00 LAB RBCCT(LOINC 4.20-5.40 10 6/mcL ) Low RBC 3.47 LAB HGB(LOINC) 12.0-16.0 G/dL Low Hgb 10.1 LAB HCT(LOINC) 37.0-47.0 % Low Hct 31.5 LAB MCV(LOINC) 80.0-94.0 fL MCV 90.6 LAB MCH(LOINC) 27.0-31.2 pg MCH 29.1 LAB MCHC(LOINC) 33.0-37.0 G/dL Low MCHC 32.1 LAB RDW(LOINC) 11.5-14.5 % High RDW 17.0 LAB PLT(LOINC) 130-400 10 3/mcL Platelet 183 LAB MPV(LOINC) 7.4-10.4 fL MPV 9.1 Performed By: #### CBC, ADIFF, ANEU, URIC, LIPID, GFR, CMP #### [place] [address] [place], [place] [address] .AUTO DIFF Collected: 04/27/2017 Status: F Source: [facility] 12:18 [facility] REPOSITORY TYPE CODE TESTS RESULT OUT OF REFERENCE UNITS RANGE LAB PHILIP(LOINC) 37.0-80.0 % Neutrophil % 49.9 LAB LYM(LOINC) 10.0-50.0 % Lymphocyte % 37.2 LAB MON(LOINC) 1.7-13.0 % Monocyte % 7.7 LAB EO(LOINC) 0.0-7.0 % Eosinophil % 4.2 LAB BAS(LOINC) 0.0-2.5 % Basophil % 1.0 LAB ABLYM(LOIN 0.77-3.85 10 3/mcL C) Lymphocyte, 2.20 Absolute LAB EDUARDO(LOINC 0.15-1.00 10 3/mcL ) Monocyte, 0.50 Absolute LAB AEOS(LOINC 0.00-0.40 10 3/mcL ) Eosinophil, 0.20 Absolute LAB ABAS(LOINC 0.00-0.19 10 3/mcL ) Basophil, 0.10 Absolute Performed By: #### CBC, ADIFF, ANEU, URIC, LIPID, GFR, CMP #### [address] [address] .NEUABS Collected: 04/27/2017 Status: F Source: [facility] 12:18 PM [facility] REPOSITORY TYPE CODE TESTS RESULT OUT OF REFERENCE UNITS RANGE LAB ANEU(LOINC) 2.85-6.16 10 3/mcL Neutrophil, 3.00 Absolute Performed By: #### CBC, ADIFF, ANEU, URIC, LIPID, GFR, CMP #### [address] [address] URIC Collected: 04/27/2017 Status: F Source: [facility] 12:18 PM [facility] REPOSITORY TYPE CODE TESTS RESULT OUT OF RANGE REFERENCE UNITS LAB URIC(LOINC) 3.5-7.2 mcg/dL Uric Acid 6.2 Lvl Performed By: #### CBC, ADIFF, ANEU, URIC, LIPID, GFR, CMP #### [facility] [address] [place], [place] [address] LIPID Collected: 04/27/2017 Status: F Source: [facility] 12:18 PM [facility] REPOSITORY TYPE CODE TESTS RESULT OUT OF REFERENCE UNITS RANGE LAB CHOL(LOINC 131-200 mg/dL ) Cholesterol 163 Result Comment: Cholesterol Reference Interval: Less than 200 Desirable 200-239 Borderline high risk 240 and above High risk LAB TRIG(LOINC) 40-150 mg/dL Triglycerides 50 Result Comment: Triglyceride Reference Interval: Less than 150 Normal 150-199 Borderline high risk 200-499 High risk 500 or higher Very high risk LAB HD(LOINC) 35-90 mg/dL HDL Cholesterol 79 Result Comment: HDL Reference Interval: Less than 40 Low - high risk 60 or above Optimal/lowers risk LAB LDL(LOINC) 0-130 mg/dL LDL Cholesterol 74 Result Comment: LDL is a calculated result and requires a 12-hr fast. LDL Reference Interval: Less than 100 Optimal 100-129 Near or above optimal 130-159 Borderline high risk 160-189 High risk 190 and above Very high risk Performed By: #### CBC, ADIFF, ANEU, URIC, LIPID, GFR, CMP #### [place] [address] [place], [place] [address] .GFR Collected: 04/27/2017 Status: F Source: [facility] 12:18 [facility] REPOSITORY TYPE CODE TESTS RESULT OUT OF REFERENCE UNITS RANGE LAB GFRAA(LOINC ml/min/1.73 ) sqm GFR 42 Austrian Result Comment: GFR Population mean for , Non- Americans Ages 20-29 = 116 mL/min/1.73 sq.m. Ages 30-39 = 107 mL/min/1.73 sq.m. Ages 40-49 = 99 mL/min/1.73 sq.m. Ages 50-59 = 93 mL/min/1.73 sq.m. Ages 60-69 = 85 mL/min/1.73 sq.m. Ages 70+ = 75 mL/min/1.73 sq.m. Chronic Kidney Disease: Less than 60 mL/min/1.73 square meters End Stage Renal Disease: Less than 15 mL/min/1.73 square meters LAB GFRNO(LOINC) ml/min/1.73sqm GFR Non- 35 Result Comment: GFR Population mean for , Non- Americans Ages 20-29 = 116 mL/min/1.73 sq.m. Ages 30-39 = 107 mL/min/1.73 sq.m. Ages 40-49 = 99 mL/min/1.73 sq.m. Ages 50-59 = 93 mL/min/1.73 sq.m. Ages 60-69 = 85 mL/min/1.73 sq.m. Ages 70+ = 75 mL/min/1.73 sq.m. Chronic Kidney Disease: Less than 60 mL/min/1.73 square meters End Stage Renal Disease: Less than 15 mL/min/1.73 square meters Performed By: #### CBC, ADIFF, ANEU, URIC, LIPID, GFR, CMP #### [address] [address] CMP Collected: 04/27/2017 Status: F Source: [place] [facility] 12:18 [facility] REPOSITORY TYPE CODE TESTS RESULT OUT OF REFERENCE UNITS RANGE LAB 1547-9 83-110 mg/dL GLUCOSE 100 LAB NA(LOINC) 136-146 mEq/L Sodium Level 139 LAB K(LOINC) 3.5-5.1 mEq/L Potassium Level 4.6 LAB CL(LOINC) 98-107 mEq/L Chloride 104 LAB CO2(LOINC) 23-31 mEq/L CO2 28 LAB EBAL(LOINC mEq/L ) Electrolyte Balance 7.0 LAB BUN(LOINC) 7.0-18.0 mg/dL BUN High 30.4 LAB CRE(LOINC) 0.6-1.2 mg/dL Creatinine High Lvl (s) 1.5 LAB BC(LOINC) 7-27 ratio BUN/Creatinine 20 Ratio LAB CA(LOINC) 8.4-10.2 mg/dL Calcium Lvl High 10.5 LAB PROT(LOINC 6.0-8.3 G/dL ) Total Protein 6.8 LAB ALB(LOINC) 3.4-4.8 G/dL Albumin Level 4.1 LAB GLB(LOINC) G/dL Globulin 2.7 LAB AG(LOINC) 1.1-2.5 ratio A/G Ratio 1.5 LAB BILT(LOINC 0.2-1.0 mg/dL ) Bili Total 0.6 LAB AP(LOINC) 40-135 IU/L Alk Phos 77 LAB AST(LOINC) 10-40 IU/L AST/SGOT 16 LAB ALT(LOINC) 10-35 IU/L Low ALT/SGPT 7 Performed By: #### CBC, ADIFF, ANEU, URIC, LIPID, GFR, CMP #### A[place] [address] [place], [place] [address] HH, HEMOGLOBIN AND Collected: 04/14/2017 Status: F Source: [facility] 10:40 AM [facility] REPOSITORY TYPE CODE TESTS RESULT OUT OF RANGE REFERENCE UNITS LAB L100.1300 12.0-15.0 g/dl Low HGB 9.4 LAB L100.1400 37-47 % Low HCT 30.1 Performed By: #### L100.0600 #### [facility] [address] [place], [place], [id number] HH, HEMOGLOBIN AND Collected: 03/31/2017 Status: F Source: [facility] 10:45 AM [facility] REPOSITORY TYPE CODE TESTS RESULT OUT OF RANGE REFERENCE UNITS LAB L100.1300 12.0-15.0 g/dl Low HGB 9.6 LAB L100.1400 37-47 % Low HCT 30.1 Performed By: #### L100.0600 #### [facility] [address] [place], [place], [address] RENAL PROFILE Collected: 03/31/2017 Status: F Source: [facility] 10:45 AM [facility] REPOSITORY TYPE CODE TESTS RESULT OUT OF RANGE REFERENCE UNITS LAB L501.0100 74-106 mg/dL Normal GLU 97 Result Comment: Please note revised GLUCOSE reference range effective 2017. LAB L501.1000 7-18 mg/dL High BUN 43 LAB L501.1100 0.55-1.02 mg/dL High CREAT,SERUM 1.58 Result Comment: The validity of the calculated GFR AND GFRAA in patients over 70 years has not been determined. Clinical correlation is essential. LAB L501.1110 >60 mL/min Low EST GFR 34 Result Comment: Non- GFR Calc LAB L501.1115 >60 mL/min Low EST GFR - AA 41 Result Comment: GFR Calc LAB L501.1255 ml/min Normal Estimated CRCL 27.26 LAB L501.1300 10-20 RATIO High BUN/CRE 27.2 LAB L501.1800 3.2-5. g/dL Normal 0 ALB 3.4 LAB L501.2200 8.5-10 mg/dL High .1 CA 10.2 LAB L501.2300 2.5-4. mg/dL Normal 9 PHOS 3.2 LAB L501.5300 136-14 mmol/L Normal 5 NA 136 LAB L501.5600 3.5-5. mmol/L Normal 1 K 4.4 LAB L501.5900 98-107 mmol/L Normal CL 102 LAB L501.6100 21.0-3 mmol/L Normal 2.0 CO2 27.0 Performed By: #### L500.3600 #### [facility] [address] [place], [address] HH, HEMOGLOBIN AND Collected: 03/17/2017 Status: F Source: [facility] 10:28 AM [facility] REPOSITORY TYPE CODE TESTS RESULT OUT OF RANGE REFERENCE UNITS LAB L100.1300 12.0-15.0 g/dl Low HGB 9.5 LAB L100.1400 37-47 % Low HCT 30.5 Performed By: #### L100.0600 #### [facility] [address] [place], [address] ALLERGIES ALLERGIES DATE TYPE / CODE NAME / CODE REACTION SEVERITY SOURCE 03/02/2018 Drug ciprofloxaci Swelling Unknown [facility] Allergy/4160 n/[id number] [facility] [address](SNOMED (RXNORM) Repository CT) ENCOUNTERS ENCOUNTERS ADMIT/DISCHARGE ACCOUNT NUMBER ADMITTING ENCOUNTER LOCATION SOURCE CLASS 03/02/2018 [id number] Ambulatory [facility] ding:MEDOUTP Repository 02/16/2018 [id number] Ambulatory [facility] Hospital ding:MEDOUTP Repository 02/09/2018/02/12/20 [id number] Eduardo, Inpatient [address] Repository ng:TorShashi5BRoom: [id number]: 01 02/04/2018/02/05/20 [id number] Ambulatory BBuilding:RA Hines [address] [place] [address] Repository 02/02/2018 [id number] Ambulatory [facility] Hospital ding:MEDOUTP Repository 2018 [id number] Ambulatory [facility] Repository ng:GURJIT 01/19/2018 [id number] Ambulatory [facility] Hospital ding:MEDOUTP Repository 01/05/2018 [id number] Ambulatory [facility] Hospital ding:MEDOUTP Repository 12/22/2017 [id number] Ambulatory [facility] Hospital ding:MEDOUTP Repository 12/17/2017 [id number] Ambulatory [facility] Repository ng:JUSTINA 12/08/2017 [id number] [facility] Repository 11/24/2017 [id number] [facility] ding[facility] Repository 11/10/2017 [id number] [facility] ding[facility] Repository 10/27/2017 [id number] [facility] ding[facility] Repository 10/13/2017 [id number] [facility] ding[facility] Repository 09/29/2017 [id number] [facility] ding[facility] Repository 09/15/2017 [id number] [facility] ding[facility] Repository 09/01/2017 [id number] Ambulatory [facility] Hospital ding:MEDOUTP Repository 08/19/2017 [id number] Ambulatory [facility] ding:MEDOUTP Repository 08/04/2017 [id number] Ambulatory [facility] ding:MEDOUTP Repository 07/21/2017 [id number] Ambulatory [facility] ding:MEDOUTP Repository 07/07/2017 [id number] Ambulatory [facility] ding:MEDOUTP Repository 06/23/2017 [id number] Ambulatory [facility] ding:MEDOUTP Repository 06/21/2017 [id number] Ambulatory [facility] 06/09/2017 [id number] Ambulatory [facility] ding:MEDOUTP Repository 05/26/2017 [id number] Ambulatory [facility] ding:MEDOUTP Repository 05/12/2017 [id number] Ambulatory [facility] ding:MEDOUTP Repository 04/28/2017 [id number] Ambulatory [facility] ding:MEDOUTP Repository 04/27/2017/04/28/19 [id number] Ambulatory [facility] Alyson [address] [place] [address] ding:[facility] Repository 04/27/2017/04/28/19 [id number] Ambulatory [facility] Alyson [address] [place] [address] ding:[facility] Repository 04/14/2017 [id number] Ambulatory [facility] ding:MEDOUTP Repository 03/31/2017 [id number] Ambulatory [facility] ding:MEDOUTP Repository 03/24/2017/03/24/19 [id number] Ambulatory [facility] Alyson [address] [place] [address] ding:RAD Foundation Repository 03/17/2017 [id number] Ambulatory [facility] ding:MEDOUTP Repository PAYERS PAYERS ENCOUNTER GUARANTOR PAYER SUBSCRIBER SOURCE 03/02/2018 MAGGI A Primary MAGGI A [place] [id number] Insurance:FRANCISCO CUELLAR: [facility] Number: [id number] RDrt [id number] Repository [place], [place] Date:6450-57-96[address] [address]Kvw: [phone] [place] [phone] (HP) [phone]: 03/02/2018 Secondary NOT GIVENUNK [place] Insurance:SELF PAY [facility] Number: Effective Repository Date:2018-02-16 02/16/2018 MAGGI A Primary MAGGI A [place] [id number] Insurance:AETNA RADHALDDOB[facility]: [id number] RDBothwell [facility] Health CenterYYPINA9HTzafunbhr Repository [place], [place] Date:9036-96-26MM [address] [address]Ggt: [phone] [place] [phone] (HP) [phone]: 02/16/2018 Secondary NOT GIVENUNK [place] Insurance:SELF PAY [facility] Number: Effective Repository Date:2018-02-02 02/09/2018 MAGGI A Primary MAGGI A [facility] [id number] Insurance:Francisco LAF[place] [address] Medicare PPOPolicy Repository [facility] Number: [place] co [id number]: [phone]) Date:4595-26-82[phone] (HP) [id number] [address]VN: 02/09/2018 Secondary NOT GIVENUNK [facility] Insurance:MEDICARE [place] INDIRECT MED EDPolicy Repository Number: [id number] Date:[address]ULXB CODE EE416NZEJNHQZ, [place] [address]MT: 02/04/2018 MAGGI A Primary MAGGI A [facility] MONIGOLDDOB: Insurance:AETNA MONIGOLDDOB: [facility] [id number] MEDICARE HMO [id number] Repository [facility] Number: [facility] [id number] RO[place], [place] Date:2018-02-04 [place] [address]~LIZBETZac 6760-33-90Rylm [address]Gqa: ([phone]) [email or web address]: Name:[address]Xw [phone] (HP) REBECA [place] (HP)Tel: [phone]: [phone] ([phone] 02/02/2018 MAGGI A Primary MAGGI A [place] [id number] Insurance:AETNA DIANEB: [facility] Number: [id number] Specialty Hospital - IndianapolisBFHK7FEffective Repository [place] Date:4187-11-90LK [address] [address]Snd: [phone] [place] [phone] (HP) [phone]: 02/02/2018 Secondary NOT GIVENUNK [place] Insurance:SELF PAY [facility] Number: Effective Repository Date:2018-01-19 2018 MAGGI A Primary MAGGI A [facility] [id number] Insurance:Francisco ALFARO [place] [address] Medicare PPOPolicy Repository [facility] Number: [place] co [id number]: [phone]) Date:2874-35-31UF [phone] (HP) [id number] [place] [phone]: 01/19/2018 MAGGI A Primary MAGGI A [place] [id number] Insurance:AETNA DIANEB: [facility] Number: [id number] [id number] Repository [place] Date:3610-99-50VT [address] [address]Lge: [phone] REBECA [place] [phone] (HP) [phone]: 01/19/2018 Secondary NOT GIVENUNK [place] Insurance:SELF PAY [facility] Number: Effective Repository Date:2018-01-05 01/05/2018 MAGGI A Primary MAGGI A [place] [id number] Insurance:AETNA ANIYADOB: [facility] Number: [id number] CenterHK7FEffective Repository [place] Date:5496-60-54AG [address] [address]Iye: [phone] [place] [phone] (HP) [phone]: 01/05/2018 Secondary NOT GIVENUNK [place] Insurance:SELF PAY [facility] Number: Effective Repository Date:2017-12-22 12/22/2017 MAGGI A Primary MAGGI A [place] [id number] Insurance:AETNA DIANEB: [facility] Number: [id number] Specialty Hospital - IndianapolisBFHK7FEffective Repository [place] Date:8956-74-03XL [address] [address]Lfm: [phone] [place] [phone] () [phone]: 12/22/2017 Secondary NOT GIVENUNK [place] Insurance:SELF PAY [facility] Number: Effective Repository Date:2017-12-08 12/17/2017 MAGGI A Primary MAGGI A [facility] [id number] Insurance:Gabetnelsy ALFARO [place] [address] Medicare PPOPolicy Repository [facility] Number: [place] co [id number]: [phone]) Date:4858-88-59UD [phone] (HP) [id number] [place] [phone]: 12/08/2017 MAGGI A Primary MAGGI A [place] [id number] Insurance:AETNA ANIYADOB: [facility] Number: [id number] CenterHK7FEffective Repository [place] Date:4660-16-29MM [address] [address]Dsb: [phone] [place] [phone] (HP) [phone]: 12/08/2017 Secondary NOT GIVENUNK [place] Insurance:SELF PAY [facility] Number: Effective Repository Date:2017-11-24 11/24/2017 MAGGI A Primary MAGGI A [place] [id number] Insurance:AETNA MONIGOLDDOB: [facility] LEATHA MARTINEZAustin [facility] and Clinicy Number: [id number] R. Bowen Center for Human ServicesK7FEffective Repository [place] Date:8848-57-10BP [address] [address]Dfy: [phone] REBE[place] [phone] (HP) [phone]: 11/24/2017 Secondary NOT GIVENUNK [place] Insurance:SELF PAY [facility] Number: Effective Repository Date:2017-11-10 11/10/2017 MAGGI A Primary MAGGI A [place] [id number] Insurance:AETNA MONIGOLDDOB: [facility] ELATHA MARTINEZReg[facility] Hospital [facility] Number: [id number] CenterHK7FEffective Repository [place] Date:1453-32-26KK [address] [address]Lsa: [phone] [place] [phone] (HP) [phone]: 11/10/2017 Secondary NOT GIVENUNK [place] Insurance:SELF PAY [facility] Number: Effective Repository Date:2017-10-27 10/27/2017 MAGGI A Primary MAGGI A [place] [id number] Insurance:AETNA MONIGOLDDOB: [facility] LEATHA NEVES [facility] Number: [id number] R. Bowen Center for Human ServicesK7FEffective Repository [place] Date:6710-43-71ZY [address] [address]Vhb: [phone] [place] [phone] (HP) [phone]: 10/27/2017 Secondary NOT GIVENUNK [place] Insurance:SELF PAY [facility] Number: Effective Repository Date:2017-10-13 10/13/2017 MAGGI A Primary MAGGI A [place] [id number] Insurance:AETNA MONIGOLDDOB: [facility] Number: [id number] R. Bowen Center for Human ServicesK7FEffective Repository [place] Date:3580-11-89SD [address] [address]Wak: [phone] [place], [place] [phone] (HP) [phone]: 10/13/2017 Secondary NOT GIVENUNK [place] Insurance:SELF PAY [facility] Number: Effective Repository Date:2017-09-29 09/29/2017 MAGGI A Primary MAGGI A [place] [id number] Insurance:AETNA MONIGOLDDOB: [facility] Number: [id number] CenterHK7FEffective Repository [place] Date:4573-76-49WD [address] [address]Uoi: [phone] [place] [phone] (HP) [phone]: 09/29/2017 Secondary NOT GIVENUNK [place] Insurance:SELF PAY [facility] Number: Effective Repository Date:2017-09-15 09/15/2017 MAGGI A Primary MAGGI A [place] [id number] Insurance:AETNA MONIGOLDDOB: [facility] Number: [id number] R. Bowen Center for Human ServicesK7FEffective Repository [place] Date:1370-63-19WO [address] [address]Too: [phone] [place] [phone] (HP) [phone]: 09/15/2017 Secondary NOT GIVENUNK [place] Insurance:SELF PAY [facility] Number: Effective Repository Date:2017-09-01 09/01/2017 MAGGI A Primary MAGGI A [place] [id number] Insurance:AETNA MONIGOLDDOB: [facility] Number: [id number] R. Bowen Center for Human ServicesK7FEffective Repository [place] Date:4822-37-79TT [address] [address]Myk: [phone] [place] [phone] () [address]FC: 09/01/2017 Secondary NOT GIVENUNK [place] Insurance:SELF PAY [facility] Number: Effective Repository Date:2017-08-19 08/19/2017 MAGGI A Primary MAGGI A [place] [id number] Insurance:AETNA MONIGOLDDOB: [facility] Number: [id number] R. Bowen Center for Human ServicesK7FEffective Repository [place] Date:0808-33-94UU [address] [address]Rqp: [phone] [place] [phone] () [phone]: 08/19/2017 Secondary NOT GIVENUNK [place] Insurance:SELF PAY [facility] Number: Effective Repository Date:2017-08-04 08/04/2017 MAGGI A Primary MAGGI A [place] [id number] Insurance:AETNA MONIGOLDDOB: [facility] Number: [id number] R. Bowen Center for Human ServicesK7FEffective Repository [place] Date:7085-26-50MK [address] [address]Bur: [phone] [place], [place] [phone] () [address]CY: 08/04/2017 Secondary NOT GIVENUNK [place] Insurance:SELF PAY [facility] Number: Effective Repository Date:2017-07-27 07/21/2017 MAGGI A Primary MAGGI A [place] [id number] Insurance:AETNA MONIGOLDDOB: [facility] Number: [id number] R. Bowen Center for Human ServicesK7FEffective Repository [place] Date:9720-69-86DE [address] [address]Nws: [phone] [place] [phone] (HP) [phone]: 07/21/2017 Secondary NOT GIVENUNK [place] Insurance:SELF PAY [facility] Number: Effective Repository Date:2017-07-21 07/07/2017 MAGGI A Primary MAGGI A [place] [id number] Insurance:AETNA MONIGOLDDOB: [facility] Number: [id number] CenterHK7FEffective Repository [place] Date:8828-11-43[address] [address]Cas: [phone] [id number] REBECA [place] [phone] (HP) [phone]: 07/07/2017 Secondary NOT GIVENUNK [place] Insurance:SELF PAY [facility] Number: Effective Repository Date:2017-06-23 06/23/2017 MAGGI A Primary MAGGI A [place] [id number] Insurance:AETNA MONIGOLDDOB: [facility] Number: [id number] [facility] - IndianapolisBFHK7FEffective Repository [place] Date:6598-92-91IC [address] [address]Yec: ([phone] [phone] (HP) [phone]: 06/23/2017 Secondary NOT GIVENUNK [place] Insurance:SELF PAY [facility] Number: Effective Repository Date:2017-06-09 06/21/2017 MAGGI A Primary MAGGI A [facility] [id number] Insurance:[employer] RADHALDUNK [place] [address] Medicare PPOPolicy Repository [facility] Number: MARY CARMEN [facility] [id number] [id number]: [phone]) Date:9213-20-43[phone] (HP) [id number] [address]HF: 06/09/2017 MAGGI A Primary MAGGI A Nellie [id number] Insurance:AETNA MONIGOLDDOB: [facility] Number: [id number] CenterHK7FEffective Repository [place], [place] Date:9647-87-48IY [address] [address]Zbh: [phone] [facility] [place] [phone] () [phone]: 06/09/2017 Secondary NOT GIVENUNK [place] Insurance:SELF PAY [facility] Number: Effective Repository Date:2017-05-26 05/26/2017 Maggi A Primary Maggi A [place] [id number] Insurance:AETNA MonigoldDOB: [facility] Number: [id number] Gateway and Women's HospitalK7FEffective [place] Date:6817-25-09OZ [address] [address]Tmo: [phone] [place], [place] [phone] () [phone]: 05/26/2017 Secondary NOT GIVENUNK [place] Insurance:SELF PAY [facility] Number: Effective Repository Date:2017-05-12 05/12/2017 Maggi A Primary Maggi A [place] [id number] Insurance:AETNA MonigoldDOB: [facility] Number: [id number] University Health Ball Memorial HospitalHK7FEffective [place] Date:2653-87-81PR [address] [address]Gil: [phone] LAK[place], [place] [phone] () [phone]: 05/12/2017 Secondary NOT GIVENUNK [place] Insurance:SELF PAY [facility] Number: Effective Repository Date:2017-04-28 04/28/2017 Maggi A Primary Maggi A Nellie [id number] Insurance:AETNA MonigoldDOB: [facility] Number: [id number] Alamos Medical CenterrtHebrew Rehabilitation CenterZDDRCH1CEoetexvum Repository [place] Date:4646-23-26NV [address] [address]Qmt: [phone] [place], [place] [phone] (HP) [phone]: 04/28/2017 Secondary NOT GIVENUNK [place] Insurance:SELF PAY [facility] Number: Effective Repository Date:2017-04-14 04/27/2017 MAGGI A Primary MAGGI A [facility] MONIGOLDDOB: Insurance:AETNA MONIGOLDDOB: [facility] [place] MEDICARE HMO [id number] Repository [facility] LE[facility]HA [facility], [place] Date:2017-04-27 [place] [address]~PAMONIGOL [id number]: [phone] [email or web address]: Name:[facility] Rhona [id number] [phone] (HP) [place], [place] (HP)Tel: [phone]: [phone] (WP) [phone] (WP) [phone] 04/27/2017 MAGGI A Primary MAGGI A [facility] MONIGOLDDOB: Insurance:AETNA MONIGOLDDOB: [facility] [place] MEDICARE HMO [id number] Repository LEATHA NEVES AMolicy Number: LEATHA [facility]ENTERK7FE[place], [place] Date:2017-04-27 [place] [address]~PAMONIGOL [id number]: [phone] [email or web address] Name:O Rhona [id number] [phone] (HP) [place], [place] (HP)Tel: [phone]: [phone] (WP) [phone] (WP) [phone] 04/14/2017 Maggi A Primary Maggi A [place]ie [id number] Insurance:AETNA MonigoldDOB: [facility] Number: [id number] University Health Ball Memorial HospitalHK7FEffective [place] Date:1802-86-57QD [address] [address]Pyo: [phone] [id number] YUNREBECA [phone] (HP) [phone]: 04/14/2017 Secondary NOT GIVENUNK [place] Insurance:SELF PAY [facility] Number: Effective Repository Date:2017-03-31 03/31/2017 Maggi A Primary Maggi A [place] [id number] Insurance:AETNA MonigoldDOB: [facility] Number: [id number] University Health Ball Memorial HospitalHK7FEffective [place] Date:6778-66-35HV [facility] [address]Stz: [phone] [place], [place] [phone] (HP) [phone]: 03/31/2017 Secondary NOT GIVENUNK [place] Insurance:SELF PAY [facility] Number: Effective Repository Date:2017-03-17 03/24/2017 MAGGI A Primary MAGGI A [facility] MONIGOLDDOB: Insurance:AETNA MONIGOLDDOB: [facility] [place] [id number] MEDICARE O [id number] [facility] AMSt. Luke's Hospitaly Number: LEATHA [facility] HOSPITALHK7FEffeConway, [place] Date:2017-03-19 [place] [address]~PAMONIGOL [id number]: [phone] [email or web address] Name:O Rhona [id number] [phone] (HP) REBECA [place] (HP)Tel: [phone]: [phone] ([phone] (ZD) [phone] 03/17/2017 Maggi A Primary Maggi A [place] [id number] Insurance:FRANCISCO LernerB: [facility] Number: [id number] [facility] RdNorth [id number] Repository [place] Date:3111-99-53DG [address] [address]Dvd: [phone] REBECA [place] [phone] () [phone]: 03/17/2017 Secondary NOT GIVENUNK [place] Insurance:SELF PAY [facility] Number: Effective Repository Date:2017-03-03
== END ==
PROVIDERS: Family Provider Family Medicine; PCP Family Medicine; Referring Provider Internal Medicine Nephrology; Visit Provider Internal Medicine Nephrology
DX: N18.3 Chronic kidney disease, stage 3 (moderate) (principal); D63.1 Anemia in chronic kidney disease
CPT/HCPCS: 36415; 80069; 85014; 85018; 96372; J0885

== ENCOUNTER → 2018-02-16 10:52 | Outpatient (CLI) | payer MEDICARE, SELFPAY ==
[2018-02-02 11:09] VITALS: BMI 27.4
[2018-02-16 11:16] LABS: Hematocrit 26.4 % (37-47); Hemoglobin 8.2 g/dl (12.0-15.0)
[2018-02-16 11:18] VITALS: BP 125/67; PULSE 62; RESP 18; TEMP 37.2; O2SAT 100; BMI 27.4
== END ==
PROVIDERS: Family Provider Family Medicine; PCP Family Medicine; Visit Provider Internal Medicine Nephrology
DX: N18.3 Chronic kidney disease, stage 3 (moderate) (principal); D63.1 Anemia in chronic kidney disease
CPT/HCPCS: 36415; 85014; 85018; 96372; J0885

== ENCOUNTER → 2018-03-02 10:20 | Outpatient (CLI) | payer MEDICARE, SELFPAY ==
[2018-02-16 11:18] VITALS: BMI 27.4
[2018-03-02 11:23] LABS: Hematocrit 29.5 % (37-47); Hemoglobin 9.1 g/dl (12.0-15.0)
[2018-03-02 11:36] LABS: Albumin, Serum 3.2 g/dL (3.2-5.0); BUN 29 mg/dL (7-18); Calcium,Total 10.4 mg/dL (8.5-10.1); Chloride 104 mmol/L (98-107); Creatinine, Serum 1.45 mg/dL (0.55-1.02); EST Glomerular Filtration Rate 37 mL/min (>60); Est Glom Filt Rate - Afr Amer 45 mL/min (>60); Glucose 121 mg/dL (74-106); Phosphorus 3.1 mg/dL (2.5-4.9); Potassium 4.1 mmol/L (3.5-5.1); Sodium Level 139 mmol/L (136-145)
[2018-03-02 11:38] VITALS: BP 133/58; PULSE 56; RESP 16; TEMP 36.7; O2SAT 100; BMI 29.2
[2018-03-02 12:15] VITALS: BP 133/58; PULSE 56; RESP 16; TEMP 36.7; O2SAT 98
--- OUTSIDE RECORDS SUMMARY | 2018-05-07 04:59 | XMS RPT_ITS ---
:1940 Author Organization OHIP Support Name Relationship Address Phone BRITTNEY LEDBETTERHWIYANNA Unavailable [address] + [place] [address] ANA KWAN Unavailable [address] + [place] [address] R Unavailable Unavailable Unavailable CIRT, TRISHWILL Unavailable [address] + [place] [address] ANA KWAN Unavailable [address] + [place] [address] R Unavailable Unavailable Unavailable ANA KWAN Unavailable Unavailable + ANA KWAN Unavailable [address] + [place] [address] ANA KWAN Unavailable [address] + [place] [address] MARIAHT, TRISHWILL Unavailable [address] + [place] [address] ANA KWAN Unavailable [address] + [place] [address] R Unavailable Unavailable Unavailable ANA KWAN Unavailable Unavailable + CIRT, TRISHWILL Unavailable [address] + [place] [address] ANA KWAN Unavailable [address] + [place] [address] R Unavailable Unavailable Unavailable CIRT, TRISHWILL Unavailable [address] + [place] [address] ANA KWAN Unavailable [address] + [place] [address] R Unavailable Unavailable Unavailable CIRT, TRISHWILL Unavailable [address] + [place] [address] ANA KWAN Unavailable [address] + [place] [address] R Unavailable Unavailable Unavailable ANA KWAN Unavailable Unavailable + CIRT, BRITTNEYHWILL Unavailable [address] + [place] [address] ANA KWAN Unavailable [address] + [place] [address] R Unavailable Unavailable Unavailable CIRT, TRISHWIYANNA Unavailable [address] + [place] [address] ANA KWAN Unavailable [address] + [place] [address] R Unavailable Unavailable Unavailable CIRT, BRITTNEYHWIYANNA Unavailable [address] + [place] [address] ANA KWAN Unavailable [address] + [place] [address] R Unavailable Unavailable Unavailable CIRT, BRITTNEYHWIYANNA Unavailable [address] + [place] [address] ANA KWAN Unavailable [address] + [place] [address] R Unavailable Unavailable Unavailable CIRT, TRISHWIYANNA Unavailable [address] + [place] [address] ANA KWAN Unavailable [address] + [place] [address] R Unavailable Unavailable Unavailable CIRT, TRISHWILL Unavailable [address] + [place] [address] ANA KWAN Unavailable [address] + [place] [address] R Unavailable Unavailable Unavailable CIRT, TRISHWILL Unavailable [address] + [place] [address] ANA KWAN Unavailable [address] + [place] [address] R Unavailable Unavailable Unavailable CIRT, TRISHWILL Unavailable [address] + [place] [address] ANA KWAN Unavailable [address] + [place] [address] R Unavailable Unavailable Unavailable CIRT, TRISHWILL Unavailable [address] + [place] [address] ANA KWAN Unavailable [address] + [place] [address] R Unavailable Unavailable Unavailable CIRT, BRITTNEYHWILL Unavailable [address] + [place] [address] ANA KWAN Unavailable [address] + [place] [address] R Unavailable Unavailable Unavailable CIRT, BRITTNEYHWILL Unavailable [address] + [place] [address] ANA KWAN Unavailable [address] + [place] [address] R Unavailable Unavailable Unavailable CIRT, BRITTNEYHWILL Unavailable [address] + [place] [address] ANA KWAN Unavailable [address] + [place] [address] R Unavailable Unavailable Unavailable CIRT, LETITIAWIYANNA Unavailable [address] + [place] [address] ANA KWAN Unavailable [address] + [place] [address] R Unavailable Unavailable Unavailable ANA KWAN Unavailable Unavailable + CIRT, PATTI Unavailable [address] + [place] [address] ANA KWAN Unavailable [address] + [place] [address] R Unavailable Unavailable Unavailable CIRT, BRITTNEYHWILL Unavailable [address] + [place] [address] ANA KWAN Unavailable [address] + [place] [address] R Unavailable Unavailable Unavailable CIRT, TRISHWILL Unavailable [address] + [place] [address] ANA KWAN Unavailable [address] + [place] [address] R Unavailable Unavailable Unavailable CIRT, TRISHWILL Unavailable [address] + [place] [address] ANA KWAN Unavailable [address] + [place] [address] R Unavailable Unavailable Unavailable ANA KWAN Unavailable [address] + [place] [address] ANA KWAN Unavailable [address] + [place] [address] ANA KWAN Unavailable [address] + [place] [address] REJIANA COLLAZO Unavailable [address] + [place] [address] CIRT, TRISHWILL Unavailable [address] + [place] [address] ANA KWAN Unavailable [address] + [place] [address] R Unavailable Unavailable Unavailable CIRT, BRITTNEYHWILL Unavailable [address] + [place] [address] ANA KWAN Unavailable [address] + [place] [address] R Unavailable Unavailable Unavailable ANA KWAN Unavailable [address] + [place] [address] ANA KWAN Unavailable [address] + [place] [address] MARIAHT, TRISHWILL Unavailable [address] + [place] [address] ANA KWAN Unavailable [address] + [place] [address] R Unavailable Unavailable Unavailable Care Team Providers [...] - Anemia Yazmin, Active Nellie in chronic [facility] kidney disease [facility] / D63.1(ICD-10) Repository 09/17/2017 Unknown N18.3 - Chronic Yazmin, Active Nellie kidney disease, [facility] stage 3 [facility] (moderate) / Repository N18.3(ICD-10) 06/21/2017 Admitting Unknown / Hank Maloney Active [facility] Medical diagnosis UNK(Unknown) Center [place] Repository PROCEDURES PROCEDURES No Procedure Records FoundRESULTS RESULTS HH, HEMOGLOBIN AND Collected: 03/02/2018 Status: F Source: NELLIE HEMATOCRIT 11:08 AM [facility] REPOSITORY TYPE CODE TESTS RESULT OUT OF RANGE REFERENCE UNITS LAB L100.1300 12.0-15.0 g/dl Low HGB 9.1 LAB L100.1400 37-47 % Low HCT 29.5 Performed By: #### L100.0600 #### [facility] [address] [place], [address] RENAL PROFILE Collected: 03/02/2018 Status: F Source: NELLIE 11:08 AM [facility] REPOSITORY TYPE CODE TESTS RESULT OUT OF [...] CO2 27.0 Performed By: #### L500.3600 #### [facility] [address] [place], [place], [address] HH, HEMOGLOBIN AND Collected: 02/16/2018 Status: F Source: NELLIE HEMATOCRIT 10:58 AM [facility] REPOSITORY TYPE CODE TESTS RESULT OUT OF RANGE REFERENCE UNITS LAB L100.1300 12.0-15.0 g/dl Low HGB 8.2 LAB L100.1400 37-47 % Low HCT 26.4 Performed By: #### L100.0600 #### [facility] [address] [place], [address] PTPN Observed: 02/11/2018 Status: UNK Source: [facility] 10:17 AM [facility] Physical Therapy Inpatient Treatment Note Medical Diagnosis: s/p left MARGA performed by Dr. Clark on 02/09/2018 Demographics: Age: 78Y Gender: Female Primary Language: Egyptian Preferred Language: Egyptian Rehabilitation Precautions/Restrictions: WBAT LLE SUBJECTIVE Patient Report: [...] on Side of Bed: A little difficulty [facility] PATIENT NAME: MAGGI KWAN [address] [facility] [address] MEDICAL REC #: [id number] [place] [address] ADMIT DATE: 02/09/18 SERVICE DATE: 02/11/18 Physical [...] to achieve treatment goal(s): 2 weeks PLAN [facility] PATIENT NAME: MAGGI KWAN [address] [facility] [address] MEDICAL REC #: [id number] [place] [address] ADMIT DATE: 02/09/18 SERVICE DATE: 02/11/18 Physical [...] contact the Acute Therapy Department at extension [phone] Communication to Nursing: No updates at this time. Location of Patient at End of Therapy Session: In chair, call light within reach Services: Total Billed: 45 minutes (Timed: 45, Untimed: 0) 45.00 Timed: [20459] GAIT TRAIN EA 15 MIN 0.00 Untimed: [] PT Treatment- General ORDER Signed by: Josh Beltre, 02/11/2018 12:54:06 - CoSigned By: LAURA GARNER, PT 02/11/2018 12:57:39 PM [facility] PATIENT NAME: MAGGI KWAN [facility] Dr[address]ultz MEDICAL REC #: [id number] [place] [address] ADMIT DATE: 02/09/18 SERVICE DATE: 02/11/18 Physical Therapy Progress Note ATTENDING PHY: Darci Clark DO OTPN Observed: 02/11/2018 Status: UNK Source: [facility] 9:58 AM [facility] Occupational Therapy Inpatient Treatment Note Medical Diagnosis: s/p left MARGA performed by Dr. Clark on 02/09/2018 OCCUPATIONAL PROFILE AND HISTORY Demographics: Age: 78Y Gender: Female Primary Language: Egyptian Preferred Language: Egyptian Referring Service/Team: Orthopedics Rehabilitation Precautions/Restrictions: WBAT LLE [...] Cues for proper techniques with fair-poor carryover. [facility] PATIENT NAME: MAGGI KWAN [address] [facility] [address] MEDICAL REC #: [id number] [place] [address] ADMIT DATE: 02/09/18 SERVICE DATE: 02/11/18 Occupational [...] following is currently recommended: Home exercise program. [facility] PATIENT NAME: REJIZAYMAGGI Schultz MEDICAL REC #: [id number] [place] [address] ADMIT DATE: 02/09/18 SERVICE DATE: 02/11/18 Occupational Therapy Progress Note ATTENDING PHY: Darci Clark DO Equipment Recommended: TBD Recommended Consults: None currently. Development of Plan of Care: Patient and family participated in plan of care development today. If there are any questions regarding this service, please contact the Acute Therapy Department at extension [phone] Communication to Nursing: No updates at this time. Location of Patient at End of Therapy Session: In chair, call light within reach Services: Total Billed: 25 minutes (Timed: 25, Untimed: 0) 25.00 Timed: [56485] ADL-HOME MANAGEMENT EA 15 MIN 0.00 Untimed: [] OT Treatment General ORDER Signed by: Liya Olson, 02/11/2018 10:03:22 - CoSigned By: CATY COX/Zac 02/11/2018 11:15:05 AM [facility] PATIENT NAME: ANIYAMAGGI HolmanW. MEDICAL REC #: [id number] [place] [address] ADMIT DATE: 02/09/18 SERVICE DATE: 02/11/18 Occupational Therapy Progress Note ATTENDING PHY: Darci Clark DO CBC Collected: 02/11/2018 Status: F Source: [facility] 5:02 AM [facility] REPOSITORY Order Comment: [place]: M TYPE CODE TESTS RESULT OUT OF RANGE REFERENCE UNITS LAB L200.85751 4.5-11.0 K/CUMM Normal WBC 8.8 LAB L200.55456 3.90-5.30 M/CU MM Low RBC 2.72 LAB L200.11072 11.5-15.5 G/DL Low HGB 8.3 LAB L200.10035 35.0-47.0 % Low HCT 26.5 LAB L200.13491 80.0-99.0 fl Normal MCV 97.4 LAB L200.30058 32.0-36.0 GM/DL Low MCHC 31.3 LAB L200.94650 11-14.5 High RDW 17.1 LAB L200.93530 9.4-12.4 Normal MPV 10.3 LAB L200.32803 150-450 K/CU MM Normal PLT 195 LAB L200.96328 Less than 1 % Normal NRBC 0.0 Performed By: #### L200.55847 #### [facility] [address] [place] [address] BMP Collected: 02/11/2018 Status: F Source: [facility] 5:02 AM [facility] REPOSITORY Order Comment: [place]: M TYPE CODE TESTS RESULT OUT OF RANGE REFERENCE UNITS LAB L500.67047 136-145 MMOL/L Normal NA 141 LAB L500.91936 3.5-5.1 MMOL/L Normal K 4.8 LAB L500.79239 98-107 MMOL/L High CL 112 LAB L500.46827 21-32 MMOL/L Normal CO2 21 LAB L500.43387 5-16 MMOL/L Normal AGAP 7 LAB L500.48868 70-100 MG/DL Normal GLU 96 Result Comment: 70-100- Normal Fasting; 100-125 Impaired Fasting; greater than 126 on more than one result- Diabetes. ADA guidelines. Results may be falsely elevated after the administration of Sulfapyridine. Results may be falsely depressed after the administration of Sulfasalazine. LAB L500.04811 7-26 MG/DL High BUN 56 LAB L500.11725 0.510-0.950 MG/DL High CREAT 2.120 Result Comment: Patients receiving either N-Acetylcysteine (NAC) or Metamizole prior to venipuncture, may have falsely depressed results. LAB L500.15802 15-24 High BUN/CREA 26 LAB L500.77750 8.5-10.1 MG/DL Normal CALCIUM TOTAL 8.7 Performed By: #### L500.28541, L500.33618 #### [facility] [address] [place] [address] GFR EST Collected: 02/11/2018 Status: F Source: [facility] 5:02 AM [facility] REPOSITORY Order Comment: [place]: TYPE CODE TESTS RESULT OUT OF RANGE REFERENCE UNITS LAB L500.10282 ML/MIN Normal IF non-AFR 23 AMER LAB L500.09071 ML/MIN Normal IF 27 AMER Performed By: #### L500.95771, L500.91456 #### [facility] [address] [place] [address] PTPN Observed: 02/10/2018 Status: UNK Source: [facility] 4:28 PM [facility] REPOSITORY Physical Therapy Inpatient Treatment Note Medical Diagnosis: s/p left MARGA performed by Dr. Clark on 02/09/2018 Demographics: Age: 78Y Gender: Female Primary Language: Egyptian Preferred Language: Egyptian Rehabilitation Precautions/Restrictions: WBAT LLE SUBJECTIVE Patient Report: Why are you keeping me Patient/Caregiver Goals: To go home Pain: Pain not assessed due to OBJECTIVE General Observation: Prior to PT entrance into room. RN and STRUCTURAL BIOLOGIST approached PT about pt and pt agitated and upset about STRUCTURAL BIOLOGIST and OT recommendation of SNF at this [...] Stairs: Not assessed. Curb Negotiation: Not assessed. AM-[facility] Basic Mobility: [facility] PATIENT NAME: MAGGI KWAN [facility] [address] MEDICAL REC #: [id number] [place] [address] ADMIT DATE: 02/09/18 SERVICE DATE: 02/10/18 Physical [...] due to pt and pt upset with STRUCTURAL BIOLOGIST and OT recommendation. requesting another PT to [...] tasks, HEP, thera act, thera exercise, steps, [facility] PATIENT NAME: MAGGI KWAN [address] [facility] [address] MEDICAL REC #: [id number] [place] [address] ADMIT DATE: 02/09/18 SERVICE DATE: 02/10/18 Physical [...] contact the Acute Therapy Department at extension [phone] Communication to Nursing: Walking: CGA Location of Patient at End of Therapy Session: In bed, without bed alarm, call light within reach Services: Total Billed: 30 minutes (Timed: 30, Untimed: 0) 30.00 Timed: [43629] THER ACTIVITIES / 15 MIN Signed by: Liliane Pike, 02/10/2018 16:59:33 [facility] PATIENT NAME: MAGGI KWAN [address] [facility] [address] [facility] REC #: [id number] [place] [address] ADMIT DATE: 02/09/18 SERVICE DATE: 02/10/18 Physical Therapy Progress Note ATTENDING PHY: Darci Clark DO PTPN Observed: 02/10/2018 Status: UNK Source: [facility] 2:22 PM [facility] Physical Therapy Inpatient Treatment Note Medical Diagnosis: s/p left MARGA performed by Dr. Clark on 02/09/2018 Demographics: Age: 78Y Gender: Female Primary Language: Egyptian Preferred Language: Egyptian Rehabilitation Precautions/Restrictions: WBAT LLE SUBJECTIVE Patient Report: [...] = CK Vital Signs: Not assessed. Interventions: [facility] PATIENT NAME: MAGGI KWAN [facility] [address] MEDICAL REC #: [id number] [place] [address] ADMIT DATE: 02/09/18 SERVICE DATE: 02/10/18 Physical [...] Up: Upon acute care discharge, the following [facility] PATIENT NAME: MAGGI KWAN [address] [facility] [address] MEDICAL REC #: [id number] [place] [address] ADMIT DATE: 02/09/18 SERVICE DATE: 02/10/18 Physical [...] contact the Acute Therapy Department at extension [phone] Communication to Nursing: No updates at this time. Location of Patient at End of Therapy Session: In chair, call light within reach Services: Total Billed: 23 minutes (Timed: 23, Untimed: 0) 23.00 Timed: [66871] THER ACTIVITIES / 15 MIN 0.00 Untimed: [] PT Treatment- General ORDER Signed by: Yanni Pearl PTA 02/10/2018 15:13:57 - CoSigned By: Saurabh Alanis, 02/10/2018 3:35:13 PM [facility] PATIENT NAME: MAGGI KWAN [facility] [address] [facility] REC #: [id number] [place] [address] ADMIT DATE: 02/09/18 SERVICE DATE: 02/10/18 Physical Therapy Progress Note ATTENDING PHY: Darci Clark DO PTPN Observed: 02/10/2018 Status: UNK Source: [facility] 12:38 PM [facility] Physical Therapy Inpatient Treatment Note Medical Diagnosis: s/p left MARGA performed by Dr. Clark on 02/09/2018 Demographics: Age: 78Y Gender: Female Primary Language: Egyptian Preferred Language: Egyptian Rehabilitation Precautions/Restrictions: WBAT LLE SUBJECTIVE Patient Report: [...] and G-Code Modifier = CK Vital Signs: [facility] PATIENT NAME: MAGGI KWAN [facility] [address] MEDICAL REC #: [id number] [place] [address] ADMIT DATE: 02/09/18 SERVICE DATE: 02/10/18 Physical [...] Physical Therapy, LESS THAN 60 minutes per [facility] PATIENT NAME: MAGGI KWAN [facility] [address] MEDICAL REC #: [id number] [place] [address] ADMIT DATE: 02/09/18 SERVICE DATE: 02/10/18 Physical Therapy Progress Note ATTENDING PHY: Darci Clark DO day. Recommended Equipment: None issued this visit. Recommended Consults: None currently. Development of Plan of Care: There was no change to plan of care today. If there are any questions regarding this service, please contact the Acute Therapy Department at extension [phone] Communication to Nursing: No updates at this time. Location of Patient at End of Therapy Session: In chair, call light within reach Services: Total Billed: 23 minutes (Timed: 23, Untimed: 0) 23.00 Timed: [52516] THER ACTIVITIES / 15 MIN 0.00 Untimed: [] PT Treatment- General ORDER Signed by: Yanni Pearl, [facility] 02/10/2018 12:55:16 - CoSigned By: Saurabh Alanis, 02/10/2018 1:26:42 PM [facility] PATIENT NAME: MAGGI KWAN [facility] [address] MEDICAL REC #: [id number] [place] [address] ADMIT DATE: 02/09/18 SERVICE DATE: 02/10/18 Physical Therapy Progress Note ATTENDING PHY: Darci Clark DO PROG [facility] Observed: 02/10/2018 Status: UNK Source: [facility] 12:30 PM [facility] Patient Name: MAGGI KWAN [facility] [facility] Date of : [address] [address] Unit Number: [id number] Progress Note-Hospitalist Patient Status: ADM IN Attending [...] 1235 PROG.ORTHO Observed: 02/10/2018 Status: UNK Source: [facility] 12:16 PM [facility] Patient Name: MAGGI KWAN [address] Date of : [address] [place] [address] Unit Number: [id number] Progress Note-Ortho Patient Status: ADM IN Attending [...] Darci Clark Observed: 02/10/2018 Status: UNK Source: [facility] 10:35 AM [facility] REPOSITORY Occupational Therapy Inpatient Evaluation Medical Diagnosis: s/p left MARGA performed by Dr. Clark on 02/09/2018 OCCUPATIONAL PROFILE AND HISTORY Therapy Diagnosis: Rank Code Description 1 R26.81 Unsteadiness on feet 2 Z74.1 Need for assistance with personal care Demographics: Age: 78Y Gender: Female Primary Language: Egyptian Preferred Language: Egyptian Referring Service/Team: Orthopedics Past Medical History: Hypertension, [...] is no ramp available to enter home. [facility] PATIENT NAME: MAGGI KWAN Bal[address] [facility] [address] MEDICAL REC #: [id number] [place] [address] ADMIT DATE: 02/09/18 SERVICE DATE: 02/10/18 Occupational [...] Strength Upper Extremity: Grossly within functional limits [facility] PATIENT NAME: MAGGI KWAN [address] [facility] [address] MEDICAL REC #: [id number] [place] [address] ADMIT DATE: 02/09/18 SERVICE DATE: 02/10/18 Occupational [...] safety/judgment Equipment Recommended: TBD Rehabilitation Potential: Good [facility] PATIENT NAME: MAGGI KWAN [facility] [address] MEDICAL REC #: [id number] [place] [address] ADMIT DATE: 02/09/18 SERVICE DATE: 02/10/18 Occupational [...] and Goals: Functional Impairment: Self Care Modifier: C5027-XI (at least 40%, but less than 60% impaired, limited, or restricted) Goal: supv Goal Modifier: A2353-VR (at least 20%, but less than 40% [...] contact the Acute Therapy Department at extension [phone] CARE WILL BE TRANSFERRED TO THE (CHOICE OF ACUTE OR REHAB) OCCUPATIONAL THERAPIST Communication to Nursing: No updates at this time. Location of Patient at End of Therapy Session: In chair, call light within reach [facility] PATIENT NAME: MAGGI KWAN [address] [facility] [address] MEDICAL REC #: [id number] [place] [address] ADMIT DATE: 02/09/18 SERVICE DATE: 02/10/18 Occupational Therapy Assessment ATTENDING PHY: Darci Clark DO Services: Total Billed: 10 minutes (Timed: 10, Untimed: 0) 10.00 Timed: [30327] THER ACTIVITIES / 15 MIN 0.00 Untimed: [03335] OT-EVALUATION MOD COMPLEX 0.00 Untimed: [] OT Evaluation ORDER 0.00 Untimed: [] OT Treatment General ORDER 0.00 Untimed: [G8987] OT-Self Care-CK 0.00 Untimed: [G8988] SN-Jhdq-Psgl Care-CJ Signed by: Celina Mittal, 02/10/2018 16:47:50 [facility] PATIENT NAME: MAGGI KWAN [facility] [address] MEDICAL REC #: [id number] [place] [address] ADMIT DATE: 02/09/18 SERVICE DATE: 02/10/18 Occupational Therapy Assessment ATTENDING PHY: Darci Clark DO CBC Collected: 02/10/2018 Status: F Source: [facility] 4:53 AM [facility] REPOSITORY Order Comment: [place]: M TYPE CODE TESTS RESULT OUT OF RANGE REFERENCE UNITS LAB L200.99436 4.5-11.0 K/CUMM Normal WBC 10.9 LAB L200.17672 3.90-5.30 M/CU MM Low RBC 2.58 LAB L200.26341 11.5-15.5 G/DL Low HGB 7.8 LAB L200.93016 35.0-47.0 % Low HCT 25.0 LAB L200.18816 80.0-99.0 fl Normal MCV 96.9 LAB L200.60726 32.0-36.0 GM/DL Low MCHC 31.2 LAB L200.12841 11-14.5 High RDW 16.4 LAB L200.35576 9.4-12.4 Normal MPV 10.4 LAB L200.54971 150-450 K/CU MM Normal PLT 198 LAB L200.25144 Less than 1 % Normal NRBC 0.0 Performed By: #### L200.11818 #### [facility] [address] [place] [address] BMP Collected: 02/10/2018 Status: F Source: [facility] 4:53 AM [facility] REPOSIT[facility] Order Comment: [place]: M TYPE CODE TESTS RESULT OUT OF RANGE REFERENCE UNITS LAB L500.58531 136-145 MMOL/L Normal NA 139 LAB L500.16473 3.5-5.1 MMOL/L Normal K 4.6 LAB L500.82797 98-107 MMOL/L High CL 108 LAB L500.52644 21-32 MMOL/L Normal CO2 22 LAB L500.72311 5-16 MMOL/L Normal AGAP 9 LAB L500.43962 70-100 MG/DL High GLU 140 Result Comment: 70-100- Normal Fasting; 100-125 Impaired Fasting; greater than 126 on more than one result- Diabetes. ADA guidelines. Results may be falsely elevated after the administration of Sulfapyridine. Results may be falsely depressed after the administration of Sulfasalazine. LAB L500.72654 7-26 MG/DL High BUN 54 LAB L500.81015 0.510-0.950 MG/DL High CREAT 2.160 Result Comment: Patients receiving either N-Acetylcysteine (NAC) or Metamizole prior to venipuncture, may have falsely depressed results. LAB L500.13713 15-24 High BUN/CREA 25 LAB L500.55347 8.5-10.1 MG/DL Normal CALCIUM TOTAL 9.0 Performed By: #### L500.93869, L500.26403 #### [facility] [address] [place] [address] GFR EST Collected: 02/10/2018 Status: F Source: [facility] 4:53 AM [facility] REPOSITORY Order Comment: [place]: M TYPE CODE TESTS RESULT OUT OF RANGE REFERENCE UNITS LAB L500.52935 ML/MIN Normal IF non-AFR 22 AMER LAB L500.65813 ML/MIN Normal IF 27 AMER Performed By: #### L500.78930, L500.99874 #### [facility] [address] [place] [address] PTAR Observed: 02/09/2018 Status: UNK Source: [facility] [facility] Physical Therapy Inpatient Evaluation Medical Diagnosis: s/p left MARGA performed by Dr. Clark on 02/09/2018 Therapy Diagnosis: Rank Code Description 1 R26.81 Unsteadiness on feet 2 M62.81 Muscle weakness (generalized) Demographics: Age: 78Y Gender: Female Primary Language: Egyptian Preferred Language: Egyptian Referring Service/Team: Orthopedics Past Medical History: Hypertension, [...] lives in a single family home. Home [facility] PATIENT NAME: MAGGI KWAN [address] [facility] Dr. Schultz MEDICAL REC #: [id number] [place] [address] ADMIT DATE: 02/09/18 SERVICE DATE: 02/09/18 Physical [...] Turning Over in Bed: A little difficulty [facility] PATIENT NAME: MAGGI KWAN [facility] Dr. Schultz MEDICAL REC #: [id number] [place] [address] ADMIT DATE: 02/09/18 SERVICE DATE: 02/09/18 Physical [...] Impairment: Mobility: Walking and Moving Around. Modifier: [id number] (at least 40%, but less than 60% impaired, limited, or restricted) Goal: Complete 50 feet supv ww Goal Modifier: [id number] (at least 1%, but less than 20% impaired, limited or restricted) [facility] PATIENT NAME: MAGGI KWAN [facility] Dr. Schultz MEDICAL REC #: [id number] [place] [address] ADMIT DATE: 02/09/18 SERVICE DATE: 02/09/18 Physical [...] contact the Acute Therapy Department at extension [phone] Communication to Nursing: Walking: CGa Location of Patient at End of Therapy Session: In chair, call light within reach Services: Total Billed: 9 minutes (Timed: 9, Untimed: 0) 9.00 Timed: [97382] THER ACTIVITIES / 15 MIN 0.00 Untimed: [14716] PT-EVALUATION LOW COMPLEXITY 0.00 Untimed: [] PT Evaluation ORDER 0.00 Untimed: [] PT Treatment- General ORDER 0.00 Untimed: [G8978] PT-Mobility: Walking and Moving Around-CK 0.00 Untimed: [G8979] FU-Ffod-Xwcvvouq: Walking and Moving Around-CI Signed by: Liliane Pike, 02/09/2018 13:49:18 [facility] PATIENT NAME: MAGGI KWAN [facility] Dr. Schultz MEDICAL REC #: [id number] [place] [address] ADMIT DATE: 02/09/18 SERVICE DATE: 02/09/18 Physical Therapy Assessment Report ATTENDING PHY: Darci Clark DO HP.IMS.CON Observed: 02/09/2018 Status: UNK Source: [facility] 11:39 AM [facility] Patient Name: MAGGI KWAN [facility] [address] Date of : [address] [address] Unit Number: [id number] CONSULTATION-HandP Patient Status: REG [facility] Attending Doctor: Darci Clark DO Service Date: 02/09/18 1139 History of Present Illness Referring Physician Darci Clark DO Consulted Provider Ricardo James MD Reason for Consult MED MGT, HX OF HTN History of Present Illness This is a pleasant 78-year-old female patient of Dr. Reyes, who presented to [facility] for left hip replacement with Dr. Clark. [...] Ref 0 (Reported) Entered as Reported by ERIAK HAGER on 01/25/18 132 Last Action: Continued [...] James MD Collected: 02/09/2018 Status: F Source: [facility] 6:42 AM [facility] REPOSITORY Order Comment: [place]: M TYPE CODE TESTS RESULT OUT OF RANGE REFERENCE UNITS LAB L200.71928 11.5-15.5 G/DL Low HGB 10.6 LAB L200.36914 35.0-47.0 % Low HCT 34.8 Performed By: #### L200.00464 #### [facility] [address] [place] [address] IRON PANEL Collected: 02/09/2018 Status: F Source: [facility] 6:42 AM [facility] REPOSITORY Order Comment: [place]: M TYPE CODE TESTS RESULT OUT OF RANGE REFERENCE UNITS LAB L500.15267 50-170 UG/DL Low IRON 36 Result Comment: Patients treated with metal-binding drugs (e.g.deferoxamine) may have depressed iron values, as chelated iron may not properly react in the Siemens iron assay. LAB L500.88881 221-481 UG/DL Normal TIBC 242 LAB L500.48733 22-44 % Low IRON SAT 15 Performed By: #### L500.35486, L500.52558 #### [facility] [address] [place] [address] FERR Collected: 02/09/2018 Status: F Source: [facility] 6:42 AM [facility]IT[facility] Order Comment: [place]: M TYPE CODE TESTS RESULT OUT OF RANGE REFERENCE UNITS LAB L500.51706 8.0-307.0 NG/ML Normal FERR 232.2 Performed By: #### L500.13922, L500.98200 #### [facility] [address] [place] [address] TS Collected: 02/09/2018 Status: F Source: [facility] 6:42 AM [facility] REPOSITORY Order Comment: [place]: M Patient transfused or in the past [...] 2-3 VIEWS Observed: 02/09/2018 Status: F Source: [facility] 6:00 AM [facility] REPOSITORY HIP COMP 2-3 VIEWS LEFT Ordering [...] M.D. OR Observed: 02/09/2018 Status: UNK Source: [facility] 5:51 AM [facility] REPOSITORY DATE OF SERVICE: 02/09/2018 PREOPERATIVE DIAGNOSIS: Primary end-stage osteoarthritis of the left hip. POSTOPERATIVE DIAGNOSIS: Primary end-stage osteoarthritis of the left hip. OPERATION: Anterolateral total hip replacement, left, utilizing Johnson and Nephew size 8 Anthology standard offset femoral component with a 36-mm Oxinium +0 head, a 52-mm hemispherical acetabular cup, and a 0-degree 36-mm liner. SURGEON: Darci Clark DO BUTCHER HEAD: CAITLIN Sullivan, orthopedic resident. ANESTHESIA: General with [...] of inclination, 15 degrees of anteversion, and [facility] PATIENT NAME: MAGGI KWAN [address] [facility] [address] Schultz MEDICAL REC #: [id number] [place] 0[address]608 ADMIT DATE: DISCHARGE DATE: OPERATIVE REPORT ATTENDING [...] the hip, took it through a full gkrke-lk-xscfud without instability, and then irrigated again with [...] complications for the patient. Darci Clark DO [id number] SSI File#: [id number] Verified/Reviewed by 02/09/18 1059 LYKMI [facility] PATIENT NAME: MAGGI KWAN [facility] Dr. Schultz MEDICAL REC #: [id number] [place] [address] ADMIT DATE: DISCHARGE DATE: OPERATIVE REPORT ATTENDING PHY: Darci Clark DO VL VENOUS UNILATERAL Observed: 02/04/2018 Status: F Source: [facility] EXT FOR DVT 1:58 PM [facility] REPOSITORY [...] Status: F Source: [facility] 10:38 AM [facility] REPOSITORY TYPE CODE TESTS RESULT OUT OF RANGE REFERENCE UNITS LAB L100.1300 12.0-15.0 g/dl Low HGB 9.9 LAB L100.1400 37-47 % Low HCT 31.6 Performed By: #### L100.0600 #### [facility] [address] [place], [address] RENAL PROFILE Collected: 02/02/2018 Status: F Source: [place] 10:38 AM [facility] REPOSITORY TYPE CODE TESTS RESULT OUT OF [...] CO2 27.0 Performed By: #### L500.3600 #### [facility] [address] [place], [address] CBC W/DIFF Collected: 2018 Status: F Source: [facility] 3:30 PM [facility] Order Comment: [place]: M TYPE CODE TESTS RESULT OUT OF RANGE REFERENCE UNITS LAB L200.15309 4.5-11.0 K/CU MM WBC Normal 6.9 LAB L200.57420 3.90-5.30 M/CU MM Low RBC 3.30 LAB L200.17032 11.5-15.5 G/DL Low HGB 10.0 LAB L200.34671 35.0-47.0 % Low HCT 32.5 LAB L200.28573 80.0-99.0 fl MCV Normal 98.5 LAB L200.81784 32.0-36.0 GM/DL Low MCHC 30.8 LAB L200.28144 11-14.5 High RDW 16.2 LAB L200.33645 9.4-12.4 MPV Normal 10.9 LAB L200.53692 150-450 K/CU MM PLT Normal 245 LAB L200.44626 45-75 % NEUTROPHILS Normal % 51.8 LAB L200.59732 Less than 2 % IMMATURE Normal GRAN % 0.1 LAB L200.08867 20-40 % LYMPH % Normal 39.0 LAB L200.14047 2-10 % MONOCYTE % Normal 7.7 LAB L200.99610 0-5 % EOSINOPHIL Normal % 1.0 LAB L200.25783 0-2 % BASOPHIL % Normal 0.4 LAB L200.69368 2.0-8.3 K/CU MM NEUTROPHIL Normal ABS 3.60 LAB L200.64752 Less than 2 K/CU MM IMMATR GRAN Normal ABS 0.00 LAB L200.61881 0.9-4.4 K/CU MM LYMPH ABS Normal 2.70 LAB L200.91710 0.1-1.1 K/CU MM MONO ABS Normal 0.50 LAB L200.95753 0-0.5 K/CU MM EOS ABS Normal 0.10 LAB L200.52653 0-0.2 K/CU MM BASO ABS Normal 0.00 LAB L200.59508 Less than 1 % NRBC Normal 0.0 Performed By: #### L200.08170 #### [facility] [address]# [phone] PT Collected: 2018 Status: F Source: [facility] 3:30 PM [facility] REPOSITORY Order Comment: [place]: M TYPE CODE TESTS RESULT OUT OF RANGE REFERENCE UNITS LAB L300.61301 0.9-1.1 Normal INR 1.00 Result Comment: Recommended PT INR therapeutic range for exterminator and prophylactic therapy is 2.0 - 3.0. For heart valve and shunt patients the range is 2.5 - 3.5. LAB L300.31234 9.5-12.0 SECONDS Normal PTS 10.6 Performed By: #### L300.38938, L300.02427 #### [facility] [address] [place] [address] PTT Collected: 2018 Status: F Source: [facility] 3:30 PM [facility] REPOSITORY Order Comment: [place]: M TYPE CODE TESTS RESULT OUT OF RANGE REFERENCE UNITS LAB L300.65055 22.0-31.5 SECONDS Normal PTT 25.4 Result Comment: [...] monitored using the PTT. Performed By: #### L300.89550, L300.15404 #### [facility] [address] [place] [address] ABO/RH NC Collected: 2018 Status: F Source: [facility] 3:30 PM [facility] REPOSITORY Order Comment: [place]: M Is This Patient Going To Surgery? Y Surgery Date: 02/09/19 TYPE CODE TESTS RESULT OUT OF RANGE REFERENCE UNITS LAB B100.0400 O Normal BLOOD POSITIVE TYPE ANTIBODY SCREEN Collected: 2018 Status: F Source: [facility] 3:30 PM [facility] REPOSITORY Order Comment: [place]: M Is This Patient Going To Surgery? Y Surgery Date: 02/09/19 TYPE CODE TESTS RESULT OUT OF RANGE REFERENCE UNITS LAB B100.0680 Normal ANTIBODY NEGATIVE SCREEN BMP Collected: 2018 Status: F Source: [facility] 3:30 PM [facility] REPOSITORY Order Comment: [place]: M TYPE CODE TESTS RESULT OUT OF RANGE REFERENCE UNITS LAB L500.60075 136-145 MMOL/L Normal NA 140 LAB L500.79360 3.5-5.1 MMOL/L Normal K 4.4 LAB L500.32872 98-107 MMOL/L Normal CL 104 LAB L500.67834 21-32 MMOL/L Normal CO2 28 LAB L500.77277 5-16 MMOL/L Normal AGAP 7 LAB L500.85528 70-100 MG/DL Normal GLU 82 Result Comment: 70-100- Normal Fasting; 100-125 Impaired Fasting; greater than 126 on more than one result- Diabetes. ADA guidelines. Results may be falsely elevated after the administration of Sulfapyridine. Results may be falsely depressed after the administration of Sulfasalazine. LAB L500.21324 7-26 MG/DL High BUN 35 LAB L500.13654 0.510-0.950 MG/DL High CREAT 1.430 Result Comment: Patients receiving either N-Acetylcysteine (NAC) or Metamizole prior to venipuncture, may have falsely depressed results. LAB L500.16312 15-24 BUN/CREA High 25 LAB L500.62124 8.5-10.1 MG/DL CALCIUM High TOTAL 10.2 Performed By: #### L500.48203, L500.50470 #### [facility] [address] [place] [address] GFR EST Collected: 2018 Status: F Source: [facility] 3:30 PM [facility] REPOSITORY Order Comment: [place]: M TYPE CODE TESTS RESULT OUT OF RANGE REFERENCE UNITS LAB L500.64618 ML/MIN Normal IF non-AFR 36 AMER LAB L500.10331 ML/MIN Normal IF 43 AMER Performed By: #### L500.67064, L500.66542 #### [facility] [address] [place] [address] HGB A1C GLYCOHB Collected: 2018 Status: F Source: [facility] 3:30 PM [facility] REPOSITORY Order Comment: [place]: M TYPE CODE TESTS RESULT OUT OF RANGE REFERENCE UNITS LAB L550.83538 4.3-6.0 Normal HGB A1C 5.4 GLYCOHB Performed By: #### L550.62089 #### [facility] [address] [place] [address] MRSA PCR Collected: 2018 Status: F Source: [facility] 2:50 PM [facility] REPOSITORY Order Comment: [place]: M TYPE CODE TESTS RESULT OUT OF RANGE REFERENCE UNITS LAB L770.42303 NEGATIVE Normal MRSA NEGATIVE PCR Result Comment: PLEASE NOTE: TESTING DONE BY [employer]. The SA Nasal complete MRSA assay on the KLab GeneXpert has not been validated for use on patients under 21 years of age. All patients under 21 years of age, run on the GeneXpert will be confirmed by a Blood [place] plate, followed by an ERICK, to confirm MRSA. LAB L770.54288 NEGATIVE High POSITIVE SA PCR Result Comment: PLEASE NOTE: TESTING DONE BY [employer]. Performed By: #### L770.26266 #### [facility] [address] [place] [address]# [phone] Observed: 2018 Status: F Source: [facility] URINE CULTURE 2:30 PM [facility] REPOSITORY Order Comment: [place]: URINE RESULT 15-20,000 COL/ML MIXED TINO-PLEASE REPEAT-POSSIBLE CONTAMIN Performed By: #### M100.79753 #### [facility] [address] [place] [address] EKG Observed: 2018 Status: UNK Source: [facility] 2:09 PM [facility] REPOSITORY Procedure Date and Time: 01/26/18 1525 [...] When compared with ECG of 21-APR-2010 07:17, [place] interval has increased Vent. rate has decreased BY 38 BPM Confirmed by Silvia Cano ([id number]) on 2018 10:19:28 PM Referred By: Darci Clark Confirmed By:Silvia Cano Golden DDandT: 01/26/18 1525 TDandT: [facility] PATIENT NAME: MAGGI KWAN [facility] Dr. Schultz MEDICAL REC #: [id number] [place] [address] ADMIT DATE: DISCHARGE DATE: ATTENDING PHY: Darci Clark DO ELECTROCARDIOGRAM REPORT CLB cc: [facility] PATIENT NAME: MAGGI KWAN [address] [facility] [address] Schultz MEDICAL REC #: [id number] [place] [address] ADMIT DATE: DISCHARGE DATE: ATTENDING PHY: Darci Clark DO ELECTROCARDIOGRAM REPORT HH, HEMOGLOBIN AND Collected: 01/19/2018 Status: F Source: [place] [facility] 10:20 AM [facility] REPOSITORY TYPE CODE TESTS RESULT OUT OF RANGE REFERENCE UNITS LAB L100.1300 12.0-15.0 g/dl Low HGB 9.6 LAB L100.1400 37-47 % Low HCT 30.6 Performed By: #### L100.0600 #### [facility] [address] [place], [place], [address] IRON+IRON BINDING Collected: 01/19/2018 Status: F Source: [place] [facility] 10:20 AM [facility] REPOSITORY TYPE CODE TESTS RESULT OUT OF RANGE REFERENCE UNITS LAB L503.6075 250-450 ug/dL Low TIBC 195 LAB L503.6150 50-170 ug/dL IRON Normal 53 LAB L503.6250 15.0-55.0 % IRON Normal SATURATION 27.2 Performed By: #### L503.6030, L503.6550 #### [facility] [address] [place], [address] FERRITIN Collected: 01/19/2018 Status: F Source: [place] 10:20 AM [facility] REPOSITORY TYPE CODE TESTS RESULT OUT OF RANGE REFERENCE UNITS LAB L503.6550 8-252 ng/mL Normal FERRITIN 251 Performed By: #### L503.6030, L503.6550 #### [facility] [address] [place], [place], [address] HH, HEMOGLOBIN AND Collected: 01/05/2018 Status: F Source: [facility] [facility] 10:32 AM [facility] REPOSITORY TYPE CODE TESTS RESULT OUT OF RANGE REFERENCE UNITS LAB L100.1300 12.0-15.0 g/dl Low HGB 9.8 LAB L100.1400 37-47 % Low HCT 31.6 Performed By: #### L100.0600 #### [facility] [address] [place], [address] RENAL PROFILE Collected: 01/05/2018 Status: F Source: [place] 10:32 AM [facility] REPOSITORY TYPE CODE TESTS RESULT OUT OF [...] CO2 26.0 Performed By: #### L500.3600 #### [facility] [address] [place], [address] HH, HEMOGLOBIN AND Collected: 12/22/2017 Status: F Source: [facility] 10:29 AM [facility] REPOSITORY TYPE CODE TESTS RESULT OUT OF RANGE REFERENCE UNITS LAB L100.1300 12.0-15.0 g/dl Low HGB 9.7 LAB L100.1400 37-47 % Low HCT 30.9 Performed By: #### L100.0600 #### [facility] [address] [place], [address] PROT ELECTRO Collected: 12/17/2017 Status: F Source: [facility] 11:17 AM [facility] REPOSITORY TYPE CODE TESTS RESULT OUT OF REFERENCE UNITS RANGE LAB L750.05261 6.0-8.5 g/dL TOTAL PROTEIN Normal 6.5 LAB L750.03674 2.9-4.4 g/dL ALBUMIN Normal 3.4 LAB L750.99631 2.2-3.9 g/dL GLOBULIN,TOTAL Normal 3.1 LAB L750.14162 0.0-0.4 g/dL A-1 GLOBULIN Normal 0.3 LAB L750.24191 0.4-1.0 g/dL A-2 GLOBULIN Normal 0.7 LAB L750.08405 0.7-1.3 g/dL BETA GLOBULIN Normal 0.9 LAB L750.84748 0.4-1.8 g/dL GAMMA GLOBULIN Normal 1.3 LAB L750.33902 0.7-1.7 ALB/GLOB RATIO Normal 1.1 LAB L750.73317 Not Observed g/dL M-SPIKE High 0.4 LAB L750.17877 () INTERPRETATION Normal Result Comment: The SPE [...] the presence of Bence-Ledezma protein. Performed At: [facility] [id number] Sugey Bach PhD [id number] LAB L750.35774 () Normal NOTE: Result Comment: Protein electrophoresis scan will follow via computer, mail, or debt and budget counselor delivery. Performed By: #### L750.25266 #### [facility] [address] # [phone] HH, HEMOGLOBIN AND Collected: 12/08/2017 Status: F Source: [place] [facility] 10:33 AM [facility] REPOSITORY TYPE CODE TESTS RESULT OUT OF RANGE REFERENCE UNITS LAB L100.1300 12.0-15.0 g/dl Low HGB 9.6 LAB L100.1400 37-47 % Low HCT 30.4 Performed By: #### L100.0600 #### [facility] [address] [place], [place], [address] RENAL PROFILE Collected: 12/08/2017 Status: F Source: [place] 10:33 AM [facility] REPOSITORY TYPE CODE TESTS RESULT OUT OF [...] CO2 27.0 Performed By: #### L500.3600 #### [facility] [address] [place], [address] HH, HEMOGLOBIN AND Collected: 11/24/2017 Status: F Source: [place] [facility] 10:13 AM [facility] REPOSITORY TYPE CODE TESTS RESULT OUT OF RANGE REFERENCE UNITS LAB L100.1300 12.0-15.0 g/dl Low HGB 10.1 LAB L100.1400 37-47 % Low HCT 31.7 Performed By: #### L100.0600 #### [facility] [address] [facility] [place], [address] HH, HEMOGLOBIN AND Collected: 11/10/2017 Status: F Source: [place] [facility] 10:32 AM [facility] REPOSITORY TYPE CODE TESTS RESULT OUT OF RANGE REFERENCE UNITS LAB L100.1300 12.0-15.0 g/dl Low HGB 9.8 LAB L100.1400 37-47 % Low HCT 31.2 Performed By: #### L100.0600 #### [facility] [address] [facility] [place], [place], [address] RENAL PROFILE Collected: 11/10/2017 Status: F Source: [place] 10:32 AM [facility] REPOSITORY TYPE CODE TESTS RESULT OUT OF [...] Performed By: #### L500.3600, L503.6030, L503.6550 #### [facility] [address] [place], [place], [address] IRON+IRON BINDING Collected: 11/10/2017 Status: F Source: [facility] 10:32 AM [facility] REPOSITORY TYPE CODE TESTS RESULT OUT OF REFERENCE UNITS RANGE LAB L503.6075 250-450 ug/dL Low TIBC 171 LAB L503.6150 50-170 ug/dL Low IRON 24 LAB L503.6250 15.0-55.0 % Low IRON SATURATION 14.0 Performed By: #### L500.3600, L503.6030, L503.6550 #### [facility] [address] [place], [place], [address] FERRITIN Collected: 11/10/2017 Status: F Source: [place] 10:32 AM [facility] REPOSITORY TYPE CODE TESTS RESULT OUT OF RANGE REFERENCE UNITS LAB L503.6550 8-252 ng/mL Normal FERRITIN 252 Performed By: #### L500.3600, L503.6030, L503.6550 #### [facility] [address] [place], [address] RENAL PROFILE Collected: 10/27/2017 Status: F Source: [place] 10:26 AM [facility] REPOSITORY TYPE CODE TESTS RESULT OUT OF [...] CO2 24.0 Performed By: #### L500.3600 #### [facility] [address] [facility] [place], [place], [address] PROTEIN+CREATININE Collected: Status: F Source: [place] RATIO,URINE 10/27/2017 10:26 AM [facility] REPOSITORY TYPE CODE TESTS RESULT OUT OF RANGE REFERENCE UNITS LAB L501.1200 NO RANGE EST. mg/dL 48.40 Normal UR CREAT LAB L501.1930 <11.9 mg/dL < 6.0 Normal PROTEIN,UR. RAN. LAB L501.1940 0-200 mg/g CRE Test Normal not performed PROT:CRE RATIO Performed By: #### L501.0900 #### [facility] [address] [facility] [place], [place], [address] VITAMIN D,25 HYDROXY Collected: 10/27/2017 Status: F Source: [place] 10:26 AM [facility] REPOSITORY TYPE CODE TESTS RESULT OUT OF REFERENCE UNITS RANGE LAB L506.1000 29.95-100.01 ng/mL Low Vitamin D 28.4 25-OH Result Comment: Vitamin D 25(OH) Status Range Deficiency <20 ng/mL (50nmol/L) Insuffciency 20 - 30 ng/mL (50 - 75 nmol/L) Sufficiency 30 - 100 ng/mL (75 - 250 nmol/L) Toxicity >100 ng/mL (>250 nmol/L) Performed By: #### L506.1000 #### [facility] [address] [facility] [place], [address] CBC-COMPLETE BLOOD CNT Collected: 10/27/2017 Status: F Source: [place] NO DIFF 10:21 AM [facility] REPOSITORY TYPE CODE TESTS RESULT OUT OF [...] MPV 10.7 Performed By: #### L100.0500 #### [facility] [address] [facility] [place], [place], [address] HH, HEMOGLOBIN AND Collected: 10/13/2017 Status: F Source: [place] [facility] 10:45 AM [facility] REPOSITORY TYPE CODE TESTS RESULT OUT OF RANGE REFERENCE UNITS LAB L100.1300 12.0-15.0 g/dl Low HGB 10.0 LAB L100.1400 37-47 % Low HCT 32.1 Performed By: #### L100.0600 #### [facility] [address] [place], [address] RENAL PROFILE Collected: 10/13/2017 Status: F Source: [place] 10:45 AM [facility] REPOSITORY TYPE CODE TESTS RESULT OUT OF [...] CO2 25.0 Performed By: #### L500.3600 #### [facility] [address] [place], [address] HH, HEMOGLOBIN AND Collected: 09/29/2017 Status: F Source: [place] [facility] 10:32 AM [facility] REPOSITORY TYPE CODE TESTS RESULT OUT OF RANGE REFERENCE UNITS LAB L100.1300 12.0-15.0 g/dl Low HGB 9.7 LAB L100.1400 37-47 % Low HCT 30.3 Performed By: #### L100.0600 #### [facility] [address] [place], [address] HH, HEMOGLOBIN AND Collected: 09/15/2017 Status: F Source: [place] [facility] 10:37 AM [facility] REPOSITORY TYPE CODE TESTS RESULT OUT OF RANGE REFERENCE UNITS LAB L100.1300 12.0-15.0 g/dl Low HGB 9.8 LAB L100.1400 37-47 % Low HCT 31.3 Performed By: #### L100.0600 #### [facility] [address] [place], [address] RENAL PROFILE Collected: 09/15/2017 Status: F Source: [place] 10:37 AM [facility] REPOSITORY TYPE CODE TESTS RESULT OUT OF [...] CO2 27.0 Performed By: #### L500.3600 #### [facility] [address] [place], [address] HH, HEMOGLOBIN AND Collected: 09/01/2017 Status: F Source: [facility] [facility] 10:46 AM [facility] REPOSITORY TYPE CODE TESTS RESULT OUT OF RANGE REFERENCE UNITS LAB L100.1300 12.0-15.0 g/dl Low HGB 9.9 LAB L100.1400 37-47 % Low HCT 30.6 Performed By: #### L100.0600 #### [facility] [address] [place], [place], [address] HH, HEMOGLOBIN AND Collected: 08/19/2017 Status: F Source: [facility] [facility] 10:39 AM [facility] REPOSITORY TYPE CODE TESTS RESULT OUT OF RANGE REFERENCE UNITS LAB L100.1300 12.0-15.0 g/dl Low HGB 9.6 LAB L100.1400 37-47 % Low HCT 29.9 Performed By: #### L100.0600 #### [facility] [address] [place], [place], [address] RENAL PROFILE Collected: 08/19/2017 Status: F Source: [place] 10:39 AM [facility] REPOSITORY TYPE CODE TESTS RESULT OUT OF [...] CO2 28.0 Performed By: #### L500.3600 #### [facility] [address] [facility], [address] DOWNTIME REPORT Observed: 08/05/2017 Status: F Source: [place] 1:54 PM [facility] REPOSITORY [facility] Medical Records Department [address] [place] [address] Downtime Report MR#: [id number] Acct: [id number] Name: MAGGI KWAN Rep #: [id number] : 1940 77 From: Chad Dunham PCP: Aishwarya Reyes MD Status: REG CLI This patient was seen during an EMR downtime July 19, 2017 - July 26, 2017. This patient may have a combination of paper and electronic documentation or all paper documentation. All documentation is viewable within the e-chart portion of [facility] for each patient visit. HH, HEMOGLOBIN AND Collected: 08/04/2017 Status: F Source: [place] [facility] 10:34 AM [facility] REPOSITORY TYPE CODE TESTS RESULT OUT OF RANGE REFERENCE UNITS LAB L100.1300 12.0-15.0 g/dl Low HGB 9.6 LAB L100.1400 37-47 % Low HCT 30.4 Performed By: #### L100.0600 #### [facility] [address] [place], [address] HH, HEMOGLOBIN AND Collected: 07/21/2017 Status: F Source: [place] [facility] 10:40 AM [facility] REPOSITORY Order Comment: RESULT(S) PREVIOUSLY REPORTED ON MANUAL REQUISITION DURING DOWNTIME. TYPE CODE TESTS RESULT OUT OF RANGE REFERENCE UNITS LAB L100.1300 12.0-15.0 g/dl Low HGB 9.9 LAB L100.1400 37-47 % Low HCT 31.0 Performed By: #### L100.0600 #### [facility] [address] [place], [address] RENAL PROFILE Collected: 07/21/2017 Status: F Source: [place] 10:40 AM [facility] REPOSITORY Order Comment: IRON WAS MISSED BEING [...] Performed By: #### L500.3600, L503.6030, L503.6550 #### [facility] [address] [place], [address] IRON+IRON BINDING Collected: 07/21/2017 Status: F Source: [place] 10:40 AM [facility] REPOSITORY Order Comment: IRON WAS MISSED BEING RUN DURING THE DOWNTIME. RESULT(S) PREVIOUSLY REPORTED ON MANUAL REQUISITION DURING DOWNTIME. TYPE CODE TESTS RESULT OUT OF REFERENCE UNITS RANGE LAB L503.6075 250-450 ug/dL Low TIBC 209 LAB L503.6150 50-170 ug/dL IRON Normal Test not performed LAB L503.6250 15.0-55.0 % IRON Normal SATURATION Test not performed Performed By: #### L500.3600, L503.6030, L503.6550 #### [facility] [address] [place], [address] FERRITIN Collected: 07/21/2017 Status: F Source: [place] 10:40 AM [facility] REPOSITORY Order Comment: IRON WAS MISSED BEING RUN DURING THE DOWNTIME. RESULT(S) PREVIOUSLY REPORTED ON MANUAL REQUISITION DURING DOWNTIME. TYPE CODE TESTS RESULT OUT OF RANGE REFERENCE UNITS LAB L503.6550 8-252 ng/mL Normal FERRITIN 246 Performed By: #### L500.3600, L503.6030, L503.6550 #### [facility] [address] [place], [address] HH, HEMOGLOBIN AND Collected: 07/07/2017 Status: F Source: [place] [facility] 10:38 AM [facility] REPOSITORY TYPE CODE TESTS RESULT OUT OF RANGE REFERENCE UNITS LAB L100.1300 12.0-15.0 g/dl Low HGB 10.1 LAB L100.1400 37-47 % Low HCT 31.9 Performed By: #### L100.0600 #### [facility] [address] [place], [address] HH, HEMOGLOBIN AND Collected: 06/23/2017 Status: F Source: [place] [facility] 10:45 AM [facility] REPOSITORY Order Comment: Has pt arrived? Y TYPE CODE TESTS RESULT OUT OF RANGE REFERENCE UNITS LAB L100.1300 12.0-15.0 g/dl Low HGB 9.9 LAB L100.1400 37-47 % Low HCT 31.4 Performed By: #### L100.0600 #### [facility] [address] [place], [address] RENAL PROFILE Collected: 06/23/2017 Status: F Source: [place] 10:45 AM [facility] REPOSITORY Order Comment: Has pt arrived? Y [...] CO2 28.0 Performed By: #### L500.3600 #### [facility] [address] [place], [address] PROT ELECTRO Collected: 06/21/2017 Status: F Source: [facility] 11:10 AM [facility] REPOSITORY TYPE CODE TESTS RESULT OUT OF REFERENCE UNITS RANGE LAB L750.96602 6.0-8.5 g/dL TOTAL PROTEIN Normal 7.1 LAB L750.79499 2.9-4.4 g/dL ALBUMIN Normal 3.7 LAB L750.59148 2.2-3.9 g/dL GLOBULIN,TOTAL Normal 3.4 LAB L750.75344 0.0-0.4 g/dL A-1 GLOBULIN Normal 0.3 LAB L750.70160 0.4-1.0 g/dL A-2 GLOBULIN Normal 0.7 LAB L750.82453 0.7-1.3 g/dL BETA GLOBULIN Normal 1.0 LAB L750.50132 0.4-1.8 g/dL GAMMA GLOBULIN Normal 1.4 LAB L750.11888 0.7-1.7 ALB/GLOB RATIO Normal 1.1 LAB L750.28975 Not Observed g/dL M-SPIKE High 0.5 LAB L750.45100 () INTERPRETATION Normal Result Comment: The SPE [...] the presence of Bence-Ledezma protein. Performed At: [facility] [id number] Sugey Bach PhD [id number] LAB L750.06282 () Normal NOTE: Result Comment: Protein electrophoresis scan will follow via computer, mail, or debt and budget counselor delivery. Performed By: #### L750.56138 #### [facility] [address] # [phone] HH, HEMOGLOBIN AND Collected: 06/09/2017 Status: F Source: [place] [facility] 10:44 AM [facility] REPOSITORY TYPE CODE TESTS RESULT OUT OF RANGE REFERENCE UNITS LAB L100.1300 12.0-15.0 g/dl Low HGB 9.9 LAB L100.1400 37-47 % Low HCT 30.9 Performed By: #### L100.0600 #### [facility] [address] [place], [place], [address] HH, HEMOGLOBIN AND Collected: 05/26/2017 Status: F Source: [place] [facility] 10:30 AM [facility] REPOSITORY TYPE CODE TESTS RESULT OUT OF RANGE REFERENCE UNITS LAB L100.1300 12.0-15.0 g/dl Low HGB 10.0 LAB L100.1400 37-47 % Low HCT 32.1 Performed By: #### L100.0600 #### [facility] [address] [place], [place], [address] RENAL PROFILE Collected: 05/26/2017 Status: F Source: [place] 10:30 AM [facility] REPOSITORY TYPE CODE TESTS RESULT OUT OF [...] CO2 26.0 Performed By: #### L500.3600 #### [facility] [address] [place], [address] HH, HEMOGLOBIN AND Collected: 05/12/2017 Status: F Source: [place] [facility] 10:44 AM [facility] REPOSITORY TYPE CODE TESTS RESULT OUT OF RANGE REFERENCE UNITS LAB L100.1300 12.0-15.0 g/dl Low HGB 9.7 LAB L100.1400 37-47 % Low HCT 31.1 Performed By: #### L100.0600 #### [facility] [address] [place], [address] HH, HEMOGLOBIN AND Collected: 04/28/2017 Status: F Source: [place] [facility] 10:46 AM [facility] REPOSITORY TYPE CODE TESTS RESULT OUT OF RANGE REFERENCE UNITS LAB L100.1300 12.0-15.0 g/dl Low HGB 9.8 LAB L100.1400 37-47 % Low HCT 31.5 Performed By: #### L100.0600 #### [facility] [address] [place], [place], [address] RENAL PROFILE Collected: 04/28/2017 Status: F Source: [place] 10:46 AM [facility] REPOSITORY TYPE CODE TESTS RESULT OUT OF [...] Performed By: #### L500.3600, L503.6030, L503.6550 #### [facility] [address] [place], [address] IRON+IRON BINDING Collected: 04/28/2017 Status: F Source: [place] 10:46 AM [facility] REPOSITORY TYPE CODE TESTS RESULT OUT OF RANGE REFERENCE UNITS LAB L503.6075 250-450 ug/dL Low TIBC 214 LAB L503.6150 50-170 ug/dL IRON Normal 51 LAB L503.6250 15.0-55.0 % IRON Normal SATURATION 23.8 Performed By: #### L500.3600, L503.6030, L503.6550 #### [facility] [address] [place], [address] FERRITIN Collected: 04/28/2017 Status: F Source: [place] 10:46 AM [facility] REPOSITORY TYPE CODE TESTS RESULT OUT OF RANGE REFERENCE UNITS LAB L503.6550 8-252 ng/mL Normal FERRITIN 240 Performed By: #### L500.3600, L503.6030, L503.6550 #### [facility] [address] [place], [address] .GFR Collected: 04/27/2017 Status: F Source: [place] [employer] 12:19 PM [facility] REPOSITORY TYPE CODE TESTS RESULT OUT OF REFERENCE UNITS RANGE LAB GFRAA(LOINC ml/min/1.73 ) sqm GFR 42 [place] Result Comment: GFR Population mean for , [...] Performed By: #### GFR, RFP #### Alyson [address] [address] #### PTH, VIDH #### [address] [address] RFP Collected: 04/27/2017 Status: F Source: [facility] 12:19 [facility] REPOSITORY TYPE CODE TESTS RESULT [...] Performed By: #### GFR, RFP #### Alyson [address] [address] #### PTH, VIDH #### [address] [address] PTH Collected: 04/27/2017 Status: F Source: [facility] 12:19 [facility] REPOSITORY TYPE CODE TESTS RESULT OUT OF REFERENCE UNITS RANGE LAB PTH(LOINC) 18.5-88.0 pg/mL PTH, Intact 45.2 Performed By: #### GFR, RFP #### [address] [address] #### PTH, VIDH #### [place] [address] VIDH Collected: 04/27/2017 Status: F Source: [facility] 12:19 [facility] REPOSITORY TYPE CODE TESTS RESULT OUT OF RANGE REFERENCE UNITS LAB VIDH(LOINC) ng/mL Vit. D 34 25-Hydroxy Result Comment: Interpretive Values Based on Total 25(OH)D: Severe Deficiency <20 ng/mL Mild to Moderate Deficiency 20-30 ng/mL Optimum Levels 30-100 ng/mL Toxicity Possible >100 ng/mL Performed By: #### GFR, RFP #### [address] [address] #### PTH, VIDH #### [place] [address] MALBR Collected: 04/27/2017 Status: F Source: [facility] 12:19 [facility] REPOSITORY TYPE CODE TESTS RESULT OUT OF REFERENCE UNITS RANGE LAB CRU(LOINC) mg/dL U Creatinine 103.0 LAB MRUR(LOINC mcg/dL ) U Microalb 905 LAB RMAL(LOINC 0.0-24.9 mcg/mg ) U Ratio Alb/Cre 8.8 Performed By: #### MALBR #### [place] [address] CBC Collected: 04/27/2017 Status: F Source: [facility] 12:18 [facility] REPOSITORY TYPE CODE TESTS RESULT [...] ADIFF, ANEU, URIC, LIPID, GFR, CMP #### [place] [address] [place], [place] [address] .AUTO DIFF Collected: 04/27/2017 Status: F Source: [facility] 12:18 [facility] REPOSITORY TYPE CODE TESTS RESULT [...] ADIFF, ANEU, URIC, LIPID, GFR, CMP #### [address] [address] .NEUABS Collected: 04/27/2017 Status: F Source: [facility] 12:18 PM [facility] REPOSITORY TYPE CODE TESTS RESULT OUT OF REFERENCE UNITS RANGE LAB ANEU(LOINC) 2.85-6.16 10 3/mcL Neutrophil, 3.00 Absolute Performed By: #### CBC, ADIFF, ANEU, URIC, LIPID, GFR, CMP #### [address] [address] URIC Collected: 04/27/2017 Status: F Source: [place] [employer] 12:18 PM [facility] REPOSITORY TYPE CODE TESTS RESULT OUT OF RANGE REFERENCE UNITS LAB URIC(LOINC) 3.5-7.2 mcg/dL Uric Acid 6.2 Lvl Performed By: #### CBC, ADIFF, ANEU, URIC, LIPID, GFR, CMP #### [facility] [address] [place], [place] [address] LIPID Collected: 04/27/2017 Status: F Source: [facility] [employer] 12:18 PM [facility] REPOSITORY TYPE CODE TESTS RESULT [...] ADIFF, ANEU, URIC, LIPID, GFR, CMP #### [place] [address] [place], [place] [address] .GFR Collected: 04/27/2017 Status: F Source: [facility] 12:18 [facility] REPOSITORY TYPE CODE TESTS RESULT OUT OF REFERENCE UNITS RANGE LAB GFRAA(LOINC ml/min/1.73 ) sqm GFR 42 [place] Result Comment: GFR Population mean for , [...] ADIFF, ANEU, URIC, LIPID, GFR, CMP #### [address] [address] CMP Collected: 04/27/2017 Status: F Source: [place] [employer] 12:18 PM [facility] REPOSITORY TYPE CODE TESTS [...] ANEU, URIC, LIPID, GFR, CMP #### [place] [address] [place], [place] [address] HH, HEMOGLOBIN AND Collected: 04/14/2017 Status: F Source: [place] [facility] 10:40 AM [facility] REPOSITORY TYPE CODE TESTS RESULT OUT OF RANGE REFERENCE UNITS LAB L100.1300 12.0-15.0 g/dl Low HGB 9.4 LAB L100.1400 37-47 % Low HCT 30.1 Performed By: #### L100.0600 #### [facility] [address] [place], [place], [address] HH, HEMOGLOBIN AND Collected: 03/31/2017 Status: F Source: [place] [facility] 10:45 AM [facility] REPOSITORY TYPE CODE TESTS RESULT OUT OF RANGE REFERENCE UNITS LAB L100.1300 12.0-15.0 g/dl Low HGB 9.6 LAB L100.1400 37-47 % Low HCT 30.1 Performed By: #### L100.0600 #### [facility] [address] [place], [place], [address] RENAL PROFILE Collected: 03/31/2017 Status: F Source: [place] 10:45 AM [facility] REPOSITORY TYPE CODE TESTS RESULT OUT OF [...] CO2 27.0 Performed By: #### L500.3600 #### [facility] [address] [place], [address] HH, HEMOGLOBIN AND Collected: 03/17/2017 Status: F Source: [place] [facility] 10:28 AM [facility] REPOSITORY TYPE CODE TESTS RESULT OUT OF RANGE REFERENCE UNITS LAB L100.1300 12.0-15.0 g/dl Low HGB 9.5 LAB L100.1400 37-47 % Low HCT 30.5 Performed By: #### L100.0600 #### [facility] [address] [place], [address] ALLERGIES ALLERGIES DATE TYPE / CODE NAME / CODE REACTION SEVERITY SOURCE 03/02/2018 Drug ciprofloxaci Swelling Unknown [facility] Allergy/4160 n/[id number] [facility] [address](SNOMED (RXNORM) Repository CT) ENCOUNTERS ENCOUNTERS ADMIT/DISCHARGE ACCOUNT NUMBER ADMITTING ENCOUNTER LOCATION SOURCE CLASS 03/02/[id number] [facility] ding:MEDOUTP Repository 02/16/2018 [id number] Ambulatory [facility] Hospital ding:MEDOUTP Repository 02/09/2018/02/12/20 [id number] Eduardo, Inpatient [address] Repository ng:TorShashi5BRoom: [id number]: 01 02/04/2018/02/05/20 [id number] Ambulatory BBuilding:RA Hines [address] [place] [address] Repository 02/02/2018 [id number] Ambulatory [facility] Hospital ding:MEDOUTP Repository 2018 [id number] Ambulatory [facility] Repository ng:GURJIT 01/19/2018 [id number] Ambulatory [facility] Hospital ding:MEDOUTP Repository 01/05/2018 [id number] Ambulatory [facility] Hospital ding:MEDOUTP Repository 12/22/2017 [id number] Ambulatory [facility] Hospital ding:MEDOUTP Repository 12/17/2017 [id number] Ambulatory [facility] Repository ng:JUSTINA 12/08/2017 [id number] [facility] ding:MED[facility]P Repository 11/24/2017 [id number] Ambulatory [facility] ding:MED[facility]P Repository 11/10/2017 [id number] Ambulatory [facility] ding:MED[facility]P Repository 10/27/2017 [id number] Ambulatory [facility] ding:MED[facility]P Repository 10/13/2017 [id number] Ambulatory [facility] ding:MED[facility]P Repository 09/29/2017 [id number] Ambulatory [facility] ding:MED[facility]P Repository 09/15/2017 [id number] Ambulatory [facility] ding:MEDOUTP Repository 09/01/2017 [id number] Ambulatory [facility] Hospital ding:MEDOUTP Repository 08/19/[id number] [facility] ding:MEDOUTP Repository 08/04/[id number] [facility] ding:MEDOUTP Repository 07/21/[id number] [facility] ding:MEDOUTP Repository 07/07/[id number] [facility] ding:MEDOUTP Repository 06/23/[id number] [facility] ding:MEDOUTP Repository 06/21/2017 [id number] Ambulatory [facility] 06/09/[id number] [facility] ding:MEDOUTP Repository 05/26/[id number] [facility] ding:MEDOUTP Repository 05/12/[id number] [facility] ding:MEDOUTP Repository 04/28/[id number] [facility] ding:MEDOUTP Repository 04/27/2017/04/28/19 [id number] Ambulatory [facility] Alyson [address] [place] [address] ding:[facility] Repository 04/27/2017/04/28/19 [id number] Ambulatory [facility] Alyson [address] [place] [address] ding:[facility] Repository 04/14/[id number] [facility] ding:MEDOUTP Repository 03/31/[id number] [facility] ding:MEDOUTP Repository 03/24/2017/03/24/19 [id number] Ambulatory [facility]ON Alyson [address] [place] [address] ding:[facility] Repository 03/17/[id number] [facility] ding:MEDOUTP Repository PAYERS PAYERS ENCOUNTER GUARANTOR PAYER SUBSCRIBER SOURCE 03/02/2018 MAGGI A Primary MAGGI A [place] [id number] Insurance:FRANCISCO CUELLAR: [facility] Number: [id number] Hospital RDrt [id number] Repository [place], [place] Date:2945-57-86[address] [address]Ucu: [phone] [place] [phone] (HP) [phone]: 03/02/2018 Secondary NOT GIVENUNK Nell[place] Insurance:SELF PAY [facility] Number: Effective Repository Date:2018-02-16 02/16/2018 MAGGI A Primary MAGGI A [place] [id number] Insurance:AETNA RADHALDDOB: [facility]: [id number]ultonPCSADS3ETkvmsysdd Repository [place], [place] Date:4524-35-97[address] [address]Dhc: [phone] [place] [phone] (HP) [phone]: 02/16/2018 Secondary NOT GIVENUNK Nellie Insurance:SELF PAY [facility] Number: Effective Repository Date:2018-02-02 02/09/2018 MAGGI A Primary MAGGI A [facility] [id number] Insurance:Francisco [facility] [address] Medicare PPOPolicy Repository [facility] Number: MARY CARMEN in [id number]: [phone]) Date:3694-86-06XY [phone] (HP) [phone] [address]BZ: 02/09/2018 Secondary NOT GIVENUNK [facility] Insurance:MEDICARE [facility] [place] INDIRECT MED EDPolicy Repository Number: [id number] Date:[address] CODE BE116WPPMFTAL, [place] [address]KP: 02/04/2018 MAGGI A Primary MAGGI A [facility] MONIGOLDDOB: Insurance:AETNA MONIGOLDDOB: [facility] [id number] MEDICARE HMO [id number] Repository [facility] Number: [facility] [id number], [place] Date:2018-02-04 [place] [address]~LIZBETZac 9311-03-93Gsut [address]Hws: (658) [email or web address] Name:[address] [phone] (HP) REBECA [place] (HP)Tel: [phone]: [phone] (WG) [phone] (JO) [phone] 02/02/2018 MAGGI A Primary MAGGI A Nellie [id number] Insurance:AETNA DIANEB: [facility] Number: [id number] General HospitalBFHK7FEffective Repository [place] Date:5177-92-65CU [address] [address]Ppv: [phone] REBECA [place] [phone] (HP) [phone]: 02/02/2018 Secondary NOT GIVENUNK Nell[place] Insurance:SELF PAY [facility] Number: Effective Repository Date:2018-01-19 2018 MAGGI A Primary MAGGI A [facility] [id number] Insurance:Francisco [facility] [place] [address] Medicare PPOPolicy Repository [facility] Number: MARY CARMEN in [id number]: ([phone]) Date:4596-78-55[phone] (HP) [id number] REBECA [place] [address]BY: 01/19/2018 MAGGI A Primary MAGGI A [place] [id number] Insurance:AETNA DIANEB: [facility] Number: [id number] [facility] [id number] Repository [place] Date:3809-09-84XC [address] [address]Wuv: [phone] REBECA [place] [phone] (HP) [phone]: 01/19/2018 Secondary NOT GIVENUNK Nellie Insurance:SELF PAY [facility] Number: Effective Repository Date:2018-01-05 01/05/2018 MAGGI A Primary MAGGI A [place] [id number] Insurance:AETNA ANIYADOB: [facility] Number: [id number] [facility] HospitalHK7FEffective Repository [place] Date:4952-16-69NI [address] [address]Gcf: [phone] REBECA [place] [phone] (HP) [phone]: 01/05/2018 Secondary NOT GIVENUNK Nellie Insurance:SELF PAY [facility] Number: Effective Repository Date:2017-12-22 12/22/2017 MAGGI A Primary MAGGI A [place] [id number] Insurance:AETNA DIANEB: [facility] Number: [id number] General HospitalBFHK7FEffective Repository [place] Date:3873-54-01FM [address] [address]Zfo: [phone] REBECA [place] [phone] () [address]IG: 12/22/2017 Secondary NOT GIVENUNK Nell[place] Insurance:SELF PAY [facility] Number: Effective Repository Date:2017-12-08 12/17/2017 MAGGI A Primary MAGGI A [facility] [id number] Insurance:Gabetnelsy [facility] [place] [address] Medicare PPOPolicy Repository [facility] Number: MARY CARMEN in [id number]: [phone]) Date:1174-95-71[phone] (HP) [phone] REBECA [place] [address]DY: 12/08/2017 MAGGI A Primary MAGGI A Nellie [id number] Insurance:AETNA ANIYADOB: [facility] Number: [id number] [facility] HospitalHK7FEffective Repository [place] Date:8996-24-50SK [address] [address]Dae: [phone] REBECA [place] [phone] (HP) [phone]: 12/08/2017 Secondary NOT GIVENUNK [place] Insurance:SELF PAY [facility] Number: Effective Repository Date:2017-11-24 11/24/2017 MAGGI A Primary MAGGI A [place] [id number] Insurance:AETNA MONIGOLDDOB: [facility] LEATHA MARTINEZRed Lake Indian Health Services Hospitaly Number: [id number] Mental Health CenterK7FEffective Repository [place] Date:7671-73-15ZJ [address] [address]Bro: [phone] REBECA [place] [phone] (HP) [phone]: 11/24/2017 Secondary NOT GIVENUNK [place] Insurance:SELF PAY [facility] Number: Effective Repository Date:2017-11-10 11/10/2017 MAGGI A Primary MAGGI A [place] [id number] Insurance:AETNA MONIGOLDDOB: [facility]HA [facility] Number: [id number] [facility] HospitalHK7FEffective Repository [place] Date:4739-54-62[address] [address]Wzg: [phone] [place] [phone] (HP) [phone]: 11/10/2017 Secondary NOT GIVENUNK [place] Insurance:SELF PAY [facility] Number: Effective Repository Date:2017-10-27 10/27/2017 MAGGI A Primary MAGGI A [place] [id number] Insurance:AETNA MONIGOLDDOB: [facility] LEATHA NVEES [facility] Number: [id number] Mental Health CenterK7FEffective Repository [place] Date:1744-75-84LG [address] [address]Zoy: [phone] [place] [phone] (HP) [phone]: 10/27/2017 Secondary NOT GIVENUNK [place] Insurance:SELF PAY [facility] Number: Effective Repository Date:2017-10-13 10/13/2017 MAGGI A Primary MAGGI A [place] [id number] Insurance:AETNA MONIGOLDDOB: [facility] Number: [id number] Mental Health CenterK7FEffective Repository [place] Date:9502-24-90KC [address] [address]Een: [phone] [place], [place] [phone] (HP) [phone]: 10/13/2017 Secondary NOT GIVENUNK Nellie Insurance:SELF PAY [facility] Number: Effective Repository Date:2017-09-29 09/29/2017 MAGGI A Primary MAGGI A [place] [id number] Insurance:AETNA MONIGOLDDOB: [facility] Number: [id number] [facility] HospitalHK7FEffective Repository [place] Date:1681-54-52WG [address] [address]Vjh: [phone] [place] [phone] (HP) [phone]: 09/29/2017 Secondary NOT GIVENUNK Nellie Insurance:SELF PAY [facility] Number: Effective Repository Date:2017-09-15 09/15/2017 MAGGI A Primary MAGGI A [place] [id number] Insurance:AETNA MONIGOLDDOB: [facility] Number: [id number] Mental Health CenterK7FEffective Repository [place] Date:2227-12-98SJ [address] [address]Aae: [phone] [place] [phone] (HP) [phone]: 09/15/2017 Secondary NOT GIVENUNK [place] Insurance:SELF PAY [facility] Number: Effective Repository Date:2017-09-01 09/01/2017 MAGGI A Primary MAGGI A [place] [id number] Insurance:AETNA MONIGOLDDOB: [facility] Number: [id number] Mental Health CenterK7FEffective Repository [place] Date:1953-96-23ZD [address] [address]Cpx: [phone] [place] [phone] () [phone]: 09/01/2017 Secondary NOT GIVENUNK Nellie Insurance:SELF PAY [facility] Number: Effective Repository Date:2017-08-19 08/19/2017 MAGGI A Primary MAGGI A [place] [id number] Insurance:AETNA MONIGOLDDOB: [facility] Number: [id number] Mental Health CenterK7FEffective Repository [place], [place] Date:3310-22-83[address] [address]Usp: [phone] [place], [place] [phone] () [address]XU: 08/19/2017 Secondary NOT GIVENUNK Nellie Insurance:SELF PAY [facility] Number: Effective Repository Date:2017-08-04 08/04/2017 MAGGI A Primary MAGGI A [place] [id number] Insurance:AETNA MONIGOLDDOB: [facility] Number: [id number] Mental Health CenterK7FEffective Repository [place] Date:3427-77-91[address] [address]Fpp: [phone] [place], [place] [phone] () [address]KO: 08/04/2017 Secondary NOT GIVENUNK [place] Insurance:SELF PAY [facility] Number: Effective Repository Date:2017-07-27 07/21/2017 MAGGI A Primary MAGGI A Nellie [id number] Insurance:AETNA MONIGOLDDOB: [facility] Number: [id number] Mental Health CenterK7FEffective Repository [place] Date:2605-06-57[address] [address]Zlt: [phone] [place] [phone] (HP) [address]DZ: 07/21/2017 Secondary NOT GIVENUNK [place] Insurance:SELF PAY [facility] Number: Effective Repository Date:2017-07-21 07/07/2017 MAGGI A Primary MAGGI A Nellie [id number] Insurance:AETNA MONIGOLDDOB: [facility] Number: [id number] [facility]HK7FE[facility] [place] Date:7431-92-81[address] [address]Xqn: [phone] REBECA [place] [phone] (HP) [address]KW: 07/07/2017 Secondary NOT GIVENUNK [place] Insurance:SELF PAY [facility] Number: Effective Repository Date:2017-06-23 06/23/2017 MAGGI A Primary MAGGI A [place] [id number] Insurance:AETNA MONIGOLDDOB: [facility] Number: [id number] General HospitalBFHK7FEffective Repository [place] Date:8847-07-08[address] [address]Wms: [phone] [phone] (HP) [phone]: 06/23/2017 Secondary NOT GIVENUNK [place] Insurance:SELF PAY [facility] Number: Effective Repository Date:2017-06-09 06/21/2017 MAGGI A Primary MAGGI A [facility] [id number] Insurance:[employer]et[employer] RADHALDUNK [place] [address] Medicare PPOPolicy Repository [facility] Number: MARY CARMEN [facility] [id number] [id number]: ([phone]) Date:3177-21-68[phone] (HP) [id number] [address]ZH: 06/09/2017 MAGGI A Primary MAGGI A Nellie [id number] Insurance:AETNA MONIGOLDDOB: [facility] Number: [id number] [facility] HospitalHK7FEffective Repository [place] Date:6825-95-17LS [address] [address]Rks: [phone] [facility] [place] [phone] () [address]RZ: 06/09/2017 Secondary NOT GIVENUNK [place] Insurance:SELF PAY [facility] Number: Effective Repository Date:2017-05-26 05/26/2017 Maggi A Primary Maggi A [place] [id number] Insurance:AETNA MonigoldDOB: [facility] Number: [id number] [facility][1]K7FEffective [place] Date:3486-40-15[address] [address]Awm: [phone], [place] [phone] () [address]JA: 05/26/2017 Secondary NOT GIVENUNK [place] Insurance:SELF PAY [facility] Number: Effective Repository Date:2017-05-12 05/12/2017 Maggi A Primary Maggi A Nellie [id number] Insurance:AETNA MonigoldDOB: [facility] Number: [id number] R. Bowen Center for Human ServicesHK7FEffective [place] Date:9687-91-34JA [address] [address]Qke: [phone], [place] [phone] () [address]BD: 05/12/2017 Secondary NOT GIVENUNK [place] Insurance:SELF PAY [facility] Number: Effective Repository Date:2017-04-28 04/28/2017 Maggi A Primary Maggi A Nellie [id number] Insurance:AETNA MonigoldDOB: [facility] Number: [id number] Vista Regional HospitalrtLawrence F. Quigley Memorial HospitalCIHQGS4PWkoaytijm Repository [place] Date:4398-77-95MQ [address] [address]Pur: [phone] [place] [phone] (HP) [phone]: 04/28/2017 Secondary NOT GIVENUNK [place] Insurance:SELF PAY [facility] Number: Effective Repository Date:2017-04-14 04/27/2017 MAGGI A Primary MAGGI A [facility] MONIGOLDDOB: Insurance:AETNA MONIGOLDDOB: [facility] MEDICARE HMO [id number] Repository [facility] Number: LEATHA [facility]7[place], [place] Date:2017-04-27 [place] [address]~PAMONIGOL [id number] 01385Ken: [phone] [email or web address]: Name:[facility] Rhona [id number] [phone] (HP) [place], [place] (HP)Tel: [phone]: [phone] ([phone] ([phone] 04/27/2017 MAGGI A Primary MAGGI A [facility] MONIGOLDDOB: Insurance:AETNA MONIGOLDDOB: [facility] MEDICARE HMO [id number] Repository LEATHA NEVES AMolicy Number: LEATHA [facility]ENTERK7FERichfield [place], [place] Date:2017-04-27 [place] [address]~PAMONIGOL [id number]: [phone] [email or web address]: Name:O Rhona [id number] [phone] (HP) [place], [place] (HP)Tel: [phone]: [phone] ([phone] ([phone] 04/14/2017 Maggi A Primary Maggi A Nellie [id number] Insurance:AETNA MonigoldDOB: [facility] Number: [id number] R. Bowen Center for Human ServicesHK7FEffective [place] Date:3134-40-82[address] [address]Gia: [phone] YUNREBECA [phone] (HP) [address]SJ: 04/14/2017 Secondary NOT GIVENUNK Nellie Insurance:SELF PAY [facility] Number: Effective Repository Date:2017-03-31 03/31/2017 Maggi A Primary Maggi A [place] [id number] Insurance:AETNA MonigoldDOB: [facility] Number: [id number] R. Bowen Center for Human ServicesHK7FEffective [place] Date:9424-85-54SR [facility] [address]Neu: [phone] [place] [phone] (HP) [phone]: 03/31/2017 Secondary NOT GIVENUNK Nellie Insurance:SELF PAY [facility] Number: Effective Repository Date:2017-03-17 03/24/2017 MAGGI A Primary MAGGI A [facility] MONIGOLDDOB: Insurance:AETNA MONIGOLDDOB: [facility] [id number] MEDICARE O [id number] [facility] AMSt. James Hospital and Clinicy Number: LEATHA [facility] HOSPITALHK7FEffeSaukville, [place] Date:2017-03-19 [place] [address]~PAMONIGOL [id number] 93930Xvw: [phone] [email or web address]: Name:O Rhona [id number] [phone] (HP) REBECA [place] (HP)Tel: [phone]: [phone] ([phone] ([phone] 03/17/2017 Maggi A Primary Maggi A [place] [id number] Insurance:FRANCISCO LernerB: [facility] Leatha Neves [facility] Number: [id number] [facility] RdNorth [id number] Repository [place] Date:2191-08-32U[address] [address]Cyl: [phone] REBECA [place] [phone] () [address]WP: 03/17/2017 Secondary NOT GIVENUNK [place] Insurance:SELF PAY [facility] Number: Effective Repository Date:2017-03-03
== END ==
PROVIDERS: Family Provider Family Medicine; PCP Family Medicine; Referring Provider Internal Medicine Nephrology; Visit Provider Internal Medicine Nephrology
DX: N18.3 Chronic kidney disease, stage 3 (moderate) (principal); D63.1 Anemia in chronic kidney disease
CPT/HCPCS: 36415; 80069; 85014; 85018; 96372; J0885

== ENCOUNTER → 2018-03-22 12:31 | Outpatient (CLI) | payer MEDICARE, SELFPAY ==
[2018-02-16 11:18] VITALS: BMI 27.4
[2018-03-02 11:38] VITALS: BMI 29.2
[2018-03-22 12:56] LABS: Hematocrit 29.4 % (37-47); Hemoglobin 9.1 g/dl (12.0-15.0)
[2018-03-22 13:04] VITALS: BP 134/58; PULSE 51; RESP 16; TEMP 36.7; O2SAT 96; BMI 29.2
== END ==
PROVIDERS: Family Provider Family Medicine; PCP Family Medicine; Referring Provider Internal Medicine Nephrology; Visit Provider Internal Medicine Nephrology
DX: N18.3 Chronic kidney disease, stage 3 (moderate) (principal); D63.1 Anemia in chronic kidney disease
CPT/HCPCS: 36415; 85014; 85018; 96372; J0885

== ENCOUNTER → 2018-04-08 10:14 | Outpatient (CLI) | payer MEDICARE, SELFPAY ==
[2018-03-22 13:04] VITALS: BMI 29.2
[2018-04-08 10:36] LABS: Hematocrit 31.7 % (37-47); Hemoglobin 9.6 g/dl (12.0-15.0); Mean Corp Hgb Conc 30.3 g/gl (32-36); Mean Corpuscular Hgb 29.6 pg (27.0-32.0); Mean Corpuscular Volume 97.8 fL (81-99); Mean Platelet Vol. 10.5 fl (6.2-12.0); Platelet Count 183 K/mm3 (150-450); RBC Distribution Width CV 17.2 % (11.6-14.6); RBC Distribution Width SD 61.2 fl (35.1-43.9); Red Blood Count 3.24 M/mm3 (4.2-5.4); White Blood Count 5.9 K/mm3 (4.4-11.0)
[2018-04-08 10:37] LABS: Scan Indicated on CBC? Y/N NO
[2018-04-08 10:41] VITALS: BP 141/61; PULSE 55; RESP 18; TEMP 36.6; O2SAT 98; BMI 29.2
[2018-04-08 10:56] LABS: Albumin, Serum 3.4 g/dL (3.2-5.0); BUN 36 mg/dL (7-18); BUN/Creat Ratio 24.2 RATIO (10-20); Calcium,Total 9.6 mg/dL (8.5-10.1); Chloride 108 mmol/L (98-107); Creatinine, Serum 1.49 mg/dL (0.55-1.02); EST Glomerular Filtration Rate 36 mL/min (>60); Est Glom Filt Rate - Afr Amer 44 mL/min (>60); Glucose 80 mg/dL (74-106); Potassium 4.3 mmol/L (3.5-5.1); Sodium Level 143 mmol/L (136-145)
[2018-04-08 11:44] LABS: Protein, Urine (Random) 10.7 mg/dL (<11.9); Protein:Creat Ratio 109 mg/g CRE (0-200)
== END ==
PROVIDERS: Family Provider Family Medicine; PCP Family Medicine; Referring Provider Internal Medicine Nephrology; Visit Provider Internal Medicine Nephrology
DX: N18.3 Chronic kidney disease, stage 3 (moderate) (principal); D63.1 Anemia in chronic kidney disease
CPT/HCPCS: 36415; 80069; 82570; 84156; 85027; 96372; J0885

== ENCOUNTER → 2018-04-22 10:31 | Outpatient (CLI) | payer MEDICARE, SELFPAY ==
[2018-04-08 10:41] VITALS: BMI 29.2
[2018-04-22 10:50] VITALS: BP 158/74; PULSE 54; RESP 16; TEMP 36.1; BMI 29.2
[2018-04-22 11:08] LABS: Ferritin 324 ng/mL (8-252); Iron 55 ug/dL (50-170); Iron Binding Capacity,Total 219 ug/dL (250-450)
[2018-04-22 11:09] LABS: Hematocrit 33.5 % (37-47); Hemoglobin 10.3 g/dl (12.0-15.0)
[2018-04-22 18:33] LABS: Xtra Tube EP Lab EXTRA TUBE
== END ==
PROVIDERS: Family Provider Family Medicine; PCP Family Medicine; Visit Provider Internal Medicine Nephrology
DX: N18.3 Chronic kidney disease, stage 3 (moderate) (principal); D63.1 Anemia in chronic kidney disease
CPT/HCPCS: 36415; 82728; 83540; 83550; 85014; 85018

== ENCOUNTER → 2018-05-06 10:12 | Outpatient (CLI) | payer MEDICARE, SELFPAY ==
[2018-04-22 10:50] VITALS: BMI 29.2
[2018-05-06 10:37] LABS: Hematocrit 31.5 % (37-47); Hemoglobin 9.7 g/dl (12.0-15.0)
[2018-05-06 11:05] VITALS: BP 147/69; PULSE 71; RESP 16; TEMP 37.1; O2SAT 96; BMI 29.2
== END ==
PROVIDERS: Family Provider Family Medicine; PCP Family Medicine; Visit Provider Internal Medicine Nephrology
DX: N18.3 Chronic kidney disease, stage 3 (moderate) (principal); D63.1 Anemia in chronic kidney disease
CPT/HCPCS: 36415; 85014; 85018; 96372; J0885

== ENCOUNTER → 2018-05-20 10:55 | Outpatient (CLI) | payer MEDICARE, SELFPAY ==
[2018-04-22 10:50] VITALS: BMI 29.2
[2018-05-20 11:29] LABS: Hematocrit 30.8 % (37-47); Hemoglobin 9.5 g/dl (12.0-15.0)
[2018-05-20 11:42] LABS: Albumin, Serum 3.5 g/dL (3.2-5.0); BUN 31 mg/dL (7-18); Calcium,Total 9.7 mg/dL (8.5-10.1); Chloride 107 mmol/L (98-107); Creatinine, Serum 1.24 mg/dL (0.55-1.02); EST Glomerular Filtration Rate 45 mL/min (>60); Est Glom Filt Rate - Afr Amer 54 mL/min (>60); Glucose 98 mg/dL (74-106); Phosphorus 3.2 mg/dL (2.5-4.9); Potassium 4.2 mmol/L (3.5-5.1); Sodium Level 139 mmol/L (136-145)
[2018-05-20 12:00] VITALS: BP 161/71; PULSE 46; RESP 16; TEMP 36.7; O2SAT 98; BMI 29.2
== END ==
PROVIDERS: Family Provider Family Medicine; PCP Family Medicine; Referring Provider Internal Medicine Nephrology; Visit Provider Internal Medicine Nephrology
DX: N18.3 Chronic kidney disease, stage 3 (moderate) (principal); D63.1 Anemia in chronic kidney disease
CPT/HCPCS: 36415; 80069; 85014; 85018; 96372; Q5106

== ENCOUNTER → 2018-06-03 10:14 | Outpatient (CLI) | payer MEDICARE, SELFPAY ==
[2018-05-20 12:00] VITALS: BMI 29.2
[2018-06-03 10:53] LABS: Hemoglobin 10.4 g/dl (12.0-15.0)
[2018-06-03 11:08] LABS: Albumin, Serum 3.6 g/dL (3.2-5.0); BUN 38 mg/dL (7-18); BUN/Creat Ratio 28.8 RATIO (10-20); Calcium,Total 10.2 mg/dL (8.5-10.1); Chloride 106 mmol/L (98-107); Creatinine, Serum 1.32 mg/dL (0.55-1.02); EST Glomerular Filtration Rate 41 mL/min (>60); Est Glom Filt Rate - Afr Amer 50 mL/min (>60); Glucose 89 mg/dL (74-106); Phosphorus 2.9 mg/dL (2.5-4.9); Potassium 3.8 mmol/L (3.5-5.1); Sodium Level 140 mmol/L (136-145)
== END ==
PROVIDERS: Family Provider Family Medicine; PCP Family Medicine; Referring Provider Internal Medicine Nephrology; Visit Provider Internal Medicine Nephrology
DX: N18.3 Chronic kidney disease, stage 3 (moderate) (principal); D63.1 Anemia in chronic kidney disease
CPT/HCPCS: 36415; 80069; 85014; 85018

== ENCOUNTER → 2018-06-17 10:32 | Outpatient (CLI) | payer MEDICARE, SELFPAY ==
[2018-05-20 12:00] VITALS: BMI 29.2
[2018-06-17 10:54] LABS: Hematocrit 31.5 % (37-47)
[2018-06-17 11:07] LABS: Albumin, Serum 3.6 g/dL (3.2-5.0); BUN 43 mg/dL (7-18); BUN/Creat Ratio 32.8 RATIO (10-20); Calcium,Total 9.6 mg/dL (8.5-10.1); Chloride 106 mmol/L (98-107); Creatinine, Serum 1.31 mg/dL (0.55-1.02); EST Glomerular Filtration Rate 42 mL/min (>60); Est Glom Filt Rate - Afr Amer 51 mL/min (>60); Glucose 114 mg/dL (74-106); Phosphorus 2.4 mg/dL (2.5-4.9); Potassium 4.1 mmol/L (3.5-5.1); Sodium Level 137 mmol/L (136-145)
[2018-06-17 11:13] VITALS: BP 127/74; PULSE 59; RESP 16; TEMP 37.3; O2SAT 96; BMI 27.4
[2018-06-17] MEDS: Epoetin Alfa epbx 10,000 UNITS/ML 10000 UNIT SC (11:18)
== END ==
PROVIDERS: Family Provider Family Medicine; PCP Family Medicine; Referring Provider Internal Medicine Nephrology; Visit Provider Internal Medicine Nephrology
DX: N18.3 Chronic kidney disease, stage 3 (moderate) (principal); D63.1 Anemia in chronic kidney disease
CPT/HCPCS: 96372; 36415; 80069; 85014; 85018; Q5106

== ENCOUNTER → 2018-07-01 10:18 | Outpatient (CLI) | payer MEDICARE, SELFPAY ==
[2018-06-17 11:13] VITALS: BMI 27.4
[2018-07-01 10:52] LABS: Hematocrit 33.3 % (37-47); Hemoglobin 10.5 g/dl (12.0-15.0)
[2018-07-01 18:30] LABS: Xtra Tube EP Lab EXTRA TUBE
== END ==
PROVIDERS: Family Provider Family Medicine; PCP Family Medicine; Referring Provider Internal Medicine Nephrology; Visit Provider Internal Medicine Nephrology
DX: N18.3 Chronic kidney disease, stage 3 (moderate) (principal); D63.1 Anemia in chronic kidney disease
CPT/HCPCS: 36415; 85014; 85018; Q5106

== ENCOUNTER → 2018-07-15 10:31 | Outpatient (CLI) | payer MEDICARE, SELFPAY ==
[2018-04-08 10:41] VITALS: BMI 29.2
[2018-06-17 11:13] VITALS: BMI 27.4
[2018-07-15 11:01] LABS: Hematocrit 34.6 % (37-47); Hemoglobin 10.9 g/dl (12.0-15.0)
== END ==
PROVIDERS: Family Provider Family Medicine; PCP Family Medicine; Referring Provider Internal Medicine Nephrology; Visit Provider Internal Medicine Nephrology
DX: N18.3 Chronic kidney disease, stage 3 (moderate) (principal); D63.1 Anemia in chronic kidney disease
CPT/HCPCS: 36415; 85014; 85018; Q5106

== ENCOUNTER → 2018-07-29 10:21 | Outpatient (CLI) | payer MEDICARE, SELFPAY ==
[2018-06-17 11:13] VITALS: BMI 27.4
[2018-07-29 10:51] LABS: Hematocrit 32.3 % (37-47); Hemoglobin 10.3 g/dl (12.0-15.0)
[2018-07-29 11:14] LABS: Albumin, Serum 3.2 g/dL (3.2-5.0); BUN 35 mg/dL (7-18); BUN/Creat Ratio 29.7 RATIO (10-20); Calcium,Total 9.9 mg/dL (8.5-10.1); Chloride 109 mmol/L (98-107); Creatinine, Serum 1.18 mg/dL (0.55-1.02); EST Glomerular Filtration Rate 47 mL/min (>60); Est Glom Filt Rate - Afr Amer 57 mL/min (>60); Glucose 77 mg/dL (74-106); Phosphorus 2.9 mg/dL (2.5-4.9); Sodium Level 140 mmol/L (136-145)
[2018-07-29 11:24] LABS: Ferritin 235 ng/mL (8-252); Iron 58 ug/dL (50-170); Iron Binding Capacity,Total 181 ug/dL (250-450)
== END ==
PROVIDERS: Family Provider Family Medicine; PCP Family Medicine; Referring Provider Internal Medicine Nephrology; Visit Provider Internal Medicine Nephrology
DX: N18.3 Chronic kidney disease, stage 3 (moderate) (principal); D63.1 Anemia in chronic kidney disease
CPT/HCPCS: 36415; 80069; 82728; 83540; 83550; 85014; 85018; Q5106

== ENCOUNTER → 2018-08-12 10:27 | Outpatient (CLI) | payer MEDICARE, SELFPAY ==
[2018-06-17 11:13] VITALS: BMI 27.4
[2018-08-12 10:58] LABS: Hematocrit 32.1 % (37-47); Hemoglobin 10.4 g/dl (12.0-15.0)
== END ==
PROVIDERS: Family Provider Family Medicine; PCP Family Medicine; Referring Provider Internal Medicine Nephrology; Visit Provider Internal Medicine Nephrology
DX: N18.3 Chronic kidney disease, stage 3 (moderate) (principal); D63.1 Anemia in chronic kidney disease
CPT/HCPCS: 36415; 85014; 85018; Q5106

== ENCOUNTER → 2018-08-26 10:34 | Outpatient (CLI) | payer MEDICARE, SELFPAY ==
[2018-06-17 11:13] VITALS: BMI 27.4
[2018-08-26 11:04] LABS: Hematocrit 31.3 % (37-47)
[2018-08-26 11:20] LABS: Albumin, Serum 3.3 g/dL (3.2-5.0); BUN 32 mg/dL (7-18); BUN/Creat Ratio 25.8 RATIO (10-20); Calcium,Total 9.9 mg/dL (8.5-10.1); Chloride 108 mmol/L (98-107); Creatinine, Serum 1.24 mg/dL (0.55-1.02); EST Glomerular Filtration Rate 45 mL/min (>60); Est Glom Filt Rate - Afr Amer 54 mL/min (>60); Ferritin 230 ng/mL (8-252); Glucose 96 mg/dL (74-106); Iron 66 ug/dL (50-170); Iron Binding Capacity,Total 214 ug/dL (250-450); PERCENT IRON SATURATION 30.8 % (15.0-55.0); Phosphorus 3.1 mg/dL (2.5-4.9); Sodium Level 145 mmol/L (136-145)
[2018-08-26] MEDS: Epoetin Alfa epbx 10,000 UNITS/ML 10000 UNIT SC (11:51)
[2018-08-26 11:54] VITALS: BP 132/70; PULSE 72; RESP 16; TEMP 36.8; O2SAT 98; BMI 27.4
== END ==
PROVIDERS: Family Provider Family Medicine; PCP Family Medicine; Referring Provider Internal Medicine Nephrology; Visit Provider Internal Medicine Nephrology
DX: N18.3 Chronic kidney disease, stage 3 (moderate) (principal); D63.1 Anemia in chronic kidney disease
CPT/HCPCS: 36415; 80069; 82728; 83540; 83550; 85014; 85018; 96372; Q5106

== ENCOUNTER → 2018-09-08 10:26 | Outpatient (CLI) | payer MEDICARE, SELFPAY ==
[2018-08-26 11:54] VITALS: BMI 27.4
[2018-09-08 10:51] VITALS: BP 140/69; PULSE 54; RESP 16; TEMP 36.6; BMI 24.2
[2018-09-08 11:04] LABS: Hematocrit 34.3 % (37-47); Hemoglobin 10.9 g/dL (12.0-15.0)
== END ==
PROVIDERS: Family Provider Family Medicine; PCP Family Medicine; Referring Provider Internal Medicine Nephrology; Visit Provider Internal Medicine Nephrology
DX: N18.3 Chronic kidney disease, stage 3 (moderate) (principal); D63.1 Anemia in chronic kidney disease
CPT/HCPCS: 36415; 85014; 85018

== ENCOUNTER → 2018-09-23 10:25 | Outpatient (CLI) | payer MEDICARE, SELFPAY ==
[2018-09-08 10:51] VITALS: BMI 24.2
[2018-09-23 10:51] LABS: Hematocrit 31.9 % (37-47); Hemoglobin 10.3 g/dL (12.0-15.0)
[2018-09-23 10:57] LABS: Albumin, Serum 3.3 g/dL (3.2-5.0); BUN 36 mg/dL (7-18); BUN/Creat Ratio 28.6 RATIO (10-20); Chloride 107 mmol/L (98-107); Creatinine, Serum 1.26 mg/dL (0.55-1.02); EST Glomerular Filtration Rate 44 mL/min (>60); Est Glom Filt Rate - Afr Amer 53 mL/min (>60); Glucose 91 mg/dL (74-106); Phosphorus 3.1 mg/dL (2.5-4.9); Potassium 3.7 mmol/L (3.5-5.1); Sodium Level 143 mmol/L (136-145)
== END ==
PROVIDERS: Family Provider Family Medicine; PCP Family Medicine; Referring Provider Internal Medicine Nephrology; Visit Provider Internal Medicine Nephrology
DX: N18.3 Chronic kidney disease, stage 3 (moderate) (principal); D63.1 Anemia in chronic kidney disease
CPT/HCPCS: 36415; 80069; 85014; 85018; Q5106

== ENCOUNTER → 2018-10-07 10:38 | Outpatient (CLI) | payer MEDICARE, SELFPAY ==
[2018-09-08 10:51] VITALS: BMI 24.2
[2018-10-07 11:12] LABS: Absolute Lymphocyte Count 1.89 X10^3/uL (0.83-4.51); Basophil# 0.02 X10^3/uL; Basophil% 0.4 % (0-1); Eosinophil# 0.09 X10^3/uL; Eosinophils% 1.7 % (0-5); Hemoglobin 10.7 g/dL (12.0-15.0); Lymphocyte # 1.89 X10^3/ul (4.0); Lymphocyte % 34.8 % (19-41); Mean Corp Hgb Conc 32.4 g/dL (32-36); Mean Corpuscular Hgb 32.6 pg (27.0-32.0); Mean Corpuscular Volume 100.6 fL (81-99); Monocyte# 0.46 X10^3/uL; Monocyte% 8.5 % (0-10); NRBC Flagged by Analyzer 0 % (0-5); Neutrophil # 2.96 X10^3/uL (2.7-7.7); Neutrophil % 54.4 % (47-70); Platelet Count 178 K/mm3 (150-450); RBC Distribution Width SD 55.9 fl (35.1-43.9); Red Blood Count 3.28 M/mm3 (4.2-5.4); White Blood Count 5.4 K/mm3 (4.4-11.0)
[2018-10-07 11:28] LABS: Albumin, Serum 3.4 g/dL (3.2-5.0); BUN 29 mg/dL (7-18); BUN/Creat Ratio 23.6 RATIO (10-20); Calcium,Total 10.3 mg/dL (8.5-10.1); Chloride 108 mmol/L (98-107); Creatinine, Serum 1.23 mg/dL (0.55-1.02); EST Glomerular Filtration Rate 45 mL/min (>60); Est Glom Filt Rate - Afr Amer 54 mL/min (>60); Glucose 116 mg/dL (74-106); Phosphorus 2.9 mg/dL (2.5-4.9); Sodium Level 143 mmol/L (136-145)
[2018-10-07 11:50] LABS: PTHIN 55.3 pg/mL (18.4-80.1); Vitamin D,25 Hydroxy 28.8 ng/mL (29.95-100.01)
== END ==
PROVIDERS: Family Provider Family Medicine; PCP Family Medicine; Referring Provider Internal Medicine Nephrology; Visit Provider Internal Medicine Nephrology
DX: N18.3 Chronic kidney disease, stage 3 (moderate) (principal); D63.1 Anemia in chronic kidney disease; N25.81 Secondary hyperparathyroidism of renal origin
CPT/HCPCS: 36415; 80069; 82306; 83970; 85025; Q5106

== ENCOUNTER → 2018-10-11 10:02 | Outpatient (CLI) | payer MEDICARE, SELFPAY ==
[2018-09-08 10:51] VITALS: BMI 24.2
[2018-10-11 10:29] LABS: Protein, Urine (Random) < 6.0 mg/dL (<11.9)
== END ==
PROVIDERS: Family Provider Family Medicine; PCP Family Medicine; Referring Provider Internal Medicine Nephrology; Visit Provider Internal Medicine Nephrology
DX: N18.3 Chronic kidney disease, stage 3 (moderate) (principal); D63.1 Anemia in chronic kidney disease; N25.81 Secondary hyperparathyroidism of renal origin
CPT/HCPCS: 82570; 84156

== ENCOUNTER → 2018-10-21 10:39 | Outpatient (CLI) | payer MEDICARE, SELFPAY ==
[2018-09-08 10:51] VITALS: BMI 24.2
[2018-10-21 10:59] LABS: Hematocrit 35.3 % (37-47); Hemoglobin 11.4 g/dL (12.0-15.0)
[2018-10-21 11:11] LABS: Albumin, Serum 3.6 g/dL (3.2-5.0); BUN 34 mg/dL (7-18); Calcium,Total 10.6 mg/dL (8.5-10.1); Chloride 107 mmol/L (98-107); Creatinine, Serum 1.31 mg/dL (0.55-1.02); EST Glomerular Filtration Rate 42 mL/min (>60); Est Glom Filt Rate - Afr Amer 51 mL/min (>60); Glucose 130 mg/dL (74-106); Phosphorus 2.7 mg/dL (2.5-4.9); Potassium 3.9 mmol/L (3.5-5.1); Sodium Level 141 mmol/L (136-145)
== END ==
PROVIDERS: Family Provider Family Medicine; PCP Family Medicine; Referring Provider Internal Medicine Nephrology; Visit Provider Internal Medicine Nephrology
DX: N18.3 Chronic kidney disease, stage 3 (moderate) (principal); D63.1 Anemia in chronic kidney disease
CPT/HCPCS: 36415; 80069; 85014; 85018; Q5106

== ENCOUNTER → 2018-11-04 10:21 | Outpatient (CLI) | payer MEDICARE, SELFPAY ==
[2018-09-08 10:51] VITALS: BMI 24.2
[2018-11-04 10:43] LABS: Hematocrit 33.5 % (37-47); Hemoglobin 10.5 g/dL (12.0-15.0)
== END ==
PROVIDERS: Family Provider Family Medicine; PCP Family Medicine; Referring Provider Internal Medicine Nephrology; Visit Provider Internal Medicine Nephrology
DX: N18.3 Chronic kidney disease, stage 3 (moderate) (principal); D63.1 Anemia in chronic kidney disease
CPT/HCPCS: 36415; 85014; 85018

== ENCOUNTER → 2018-11-25 10:19 | Outpatient (CLI) | payer MEDICARE, SELFPAY ==
[2018-09-08 10:51] VITALS: BMI 24.2
[2018-11-25 10:51] LABS: Hematocrit 34.9 % (37-47); Hemoglobin 11.1 g/dL (12.0-15.0)
[2018-11-25 11:10] LABS: Albumin, Serum 3.7 g/dL (3.2-5.0); BUN 32 mg/dL (7-18); BUN/Creat Ratio 27.6 RATIO (10-20); Calcium,Total 10.6 mg/dL (8.5-10.1); Chloride 105 mmol/L (98-107); Creatinine, Serum 1.16 mg/dL (0.55-1.02); EST Glomerular Filtration Rate 48 mL/min (>60); Est Glom Filt Rate - Afr Amer 58 mL/min (>60); Ferritin 255 ng/mL (8-252); Glucose 100 mg/dL (74-106); Iron 71 ug/dL (50-170); Iron Binding Capacity,Total 226 ug/dL (250-450); PERCENT IRON SATURATION 31.4 % (15.0-55.0); Phosphorus 3.1 mg/dL (2.5-4.9); Sodium Level 141 mmol/L (136-145)
== END ==
PROVIDERS: Family Provider Family Medicine; PCP Family Medicine; Referring Provider Internal Medicine Nephrology; Visit Provider Internal Medicine Nephrology
DX: N18.3 Chronic kidney disease, stage 3 (moderate) (principal); D63.1 Anemia in chronic kidney disease
CPT/HCPCS: 80069; 82728; 83540; 83550; 85014; 85018

== ENCOUNTER → 2018-12-16 11:30 | Outpatient (CLI) | payer MEDICARE, SELFPAY ==
[2018-09-08 10:51] VITALS: BMI 24.2
== END ==
PROVIDERS: Family Provider Family Medicine; PCP Family Medicine; Referring Provider Internal Medicine Nephrology; Visit Provider Internal Medicine Nephrology
DX: N18.3 Chronic kidney disease, stage 3 (moderate) (principal); D63.1 Anemia in chronic kidney disease
CPT/HCPCS: Q5106